=== PATIENT | male | born 1995 | race Caucasian/White ===

== ENCOUNTER 2020-04-01 00:05 | Emergency (ER) | payer BC, SELFPAY ==
[2020-04-01] MEDS ORDERED: LIDOCAINE 1% W/EPI 1:100,000 MDV 20 ML VIAL ONE (01:14)
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
[2020-04-01 03:40] VITALS: TEMP 98.9
[2020-04-01 03:41] VITALS: BP 123/89; O2SAT 98
[2020-04-01] MEDS ORDERED: IBUPROFEN 400 MG TAB ONE (03:42)
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
== END 2020-04-01 03:35 | disposition home or self-care (01) ==
LOC: ER 00:05
PROC: 0JQ10ZZ Repair Face Subcutaneous Tissue and Fascia, Open Approach (ICD-10-PCS; principal; 2020-04-01)
DX: S06.0X0A Concussion without loss of consciousness, initial encounter (principal); S01.81XA Laceration without foreign body of other part of head, initial encounter; Y04.2XXA Assault by strike against or bumped into by another person, initial encounter; Y93.89 Activity, other specified; Y92.89 Other specified places as the place of occurrence of the external cause
CPT/HCPCS: 70450; 70486; 72125; 76377; 99284

== ENCOUNTER 2020-06-22 17:54 | Observation (INO) | payer BC ==
[2020-06-22] MEDS ORDERED: Ringers Lactate 1,000 ML IV ONE ×2 (18:45→21:40)
[2020-06-22] MEDS ORDERED: CEFAZOLIN/SWI 1gm 1 GM/10 ML SYR ONE ×2 (18:48→18:59)
[2020-06-22 19:17] LABS: Absolute Lymphocytes (CBC) 0.6 K/uL (0.7-4.9); Basophils % 0.2 % (0-1.3); Lymphocytes % 6.1 % (15.3-44.8); MPV 8.5 fL (7.6-11.3); RBC Red Blood Cell Count 5.18 M/uL (4.33-5.43)
[2020-06-22 19:27] LABS: Protime INR 1.13
[2020-06-22 19:41] LABS: ALT/SGPT 34 U/L (12-78); AST/SGOT 21 U/L (15-37); Albumin 3.8 g/dL (3.4-5.0); Alkaline Phosphatase 60 U/L (45-117); BUN Blood Urea Nitrogen 6 mg/dL (7-18); Bicarbonate 22 mmol/L (21-32); Bilirubin Total 0.5 mg/dL (0.2-1.0); Glucose Level 99 mg/dL (74-106); Potassium 3.7 mmol/L (3.5-5.1); Protein, Total 7.2 g/dL (6.4-8.2); Sodium Level 139 mmol/L (136-145)
[2020-06-22] MEDS ORDERED: Oxycodone HCl/Acetaminophen 1 TAB TAB PO PRN (21:21)
[2020-06-22] MEDS ORDERED: MORPHINE 2 MG/ML SYR IV PRN (21:22)
[2020-06-22] MEDS ORDERED: KETOROLAC 30 MG/ML INJ IV ONE (21:39)
[2020-06-22] MEDS ORDERED: MEPERIDINE HCL 25 MG/ML SYR ONE (21:59)
[2020-06-23 03:39] VITALS: O2SAT 95; BMI 25.9
[2020-06-23 05:10] VITALS: BP 140/72; TEMP 99.4
--- NOTE | 2020-06-24 10:39 | EKG ---
Test Date: 2020-06-22 Test Time: 18:55:09 Manager Of Business Operations: ARUN MEASUREMENT RESULTS: Intervals: Rate: 110 VA: 152 QRSD: 100 QT: 318 QTc: 430 Tonasket: P: 68 VA: 152 QRS: 78 T: 35 INTERPRETIVE STATEMENTS: Sinus tachycardia Nonspecific T wave abnormality Abnormal ECG No previous ECG available for comparison Electronically Signed On 06-24-20 10:36:54 CDT by David Lugo
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
[2020-06-27 21:03] LABS: Alpha Fetoprotein-Tumor Marker 1.4 ng/mL (<6.1)
== END 2020-06-23 06:20 | disposition home or self-care (01) ==
LOC: DS 17:54 → 2ND 21:50
PROVIDERS: ADMIT Urology; ATTEND Urology
PROC: 0VTJ0ZZ Resection of Right Epididymis, Open Approach (ICD-10-PCS; 2020-06-22)
PROC: 0VBF0ZZ Excision of Right Spermatic Cord, Open Approach (ICD-10-PCS; 2020-06-22)
PROC: 0VT90ZZ Resection of Right Testis, Open Approach (ICD-10-PCS; principal; 2020-06-22 19:00)
DX: C62.91 Malignant neoplasm of right testis, unspecified whether descended or undescended (principal); Z20.822 Contact with and (suspected) exposure to COVID-19; R94.31 Abnormal electrocardiogram [ECG] [EKG]
CPT/HCPCS: 93005; 85025; 36415; 83615; 85610; 88309; 80053; 82105; 84702; 54530; U0003; J2270; J2175; J0690 ×2; J7120 ×2; G0379; G0378

== ENCOUNTER 2022-09-13 17:55 | Observation (INO) | payer BC, SELFPAY ==
--- OUTSIDE RECORDS SUMMARY | 2022-09-13 18:14 | XMS REPORT | Continuity of Care Document ---
:1995 Author Organization [facility] t Address [address] [place] [address]. [address] [place] [address] Care Team Providers Name Role Phone [facility] Primary Care Physician Unavailable SYSTEM, PROVIDER NOT IN Attending Clinician Unavailable Nuha Norris MD Attending Clinician NUHA NORRIS Attending Clinician Unavailable Rocío Kidd APRN Attending Clinician ROCÍO KIDD Attending Clinician Unavailable RAUL YOON Attending Clinician Unavailable TAVIA SHERMAN Attending Clinician Unavailable Therapy, [facility] Covid Infusion Attending Clinician Unavailable Anthony Loomis MD Attending Clinician ANTHONY LOOMIS Attending Clinician Unavailable Doctor Unassigned, [place] Attending Clinician Unavailable Roma Middleton Attending Clinician Provider, [facility] Attending Clinician Unavailable ROMA RANKIN Attending Clinician Unavailable BRODY ZAMORA Attending Clinician Unavailable Monica Attending Clinician Unavailable PRANAV CHANCE Attending Clinician Unavailable Shield Admitting Clinician Unavailable Payers Payer Name Policy Type Policy Number Effective Date Expiration Date Boo LONGORIA/ MONROE [id number] Problems Condition Condition Condition Status Onset Resolution Last Treating Co mments Source Name Details Category Date Date Treatment Clinician Date 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 5-24 ity of 00:00: [place] 00 MD [facility] Allergies, Adverse Reactions, Alerts Allergy Allergy Status Severity Reaction(s) Onset Inactive Treating Comm ents Source Name Type Date Date Clinician NO KNOWN Drug Active Univers ALLERGIE Class ity of S [facility] Family History Family Member Diagnosis Comments Start Date Stop Date Source Maternal grandfather Prostate cancer [facility] MD Combs [facility] Social History Social Habit Start Date Stop Date Quantity Comments Source Exposure to Not sure University SARS-CoV-2 [facility] (event) [place] Alcohol intake 2020-10-13 2020-10-13 Ex-drinker University of 00:00:00 00:00:00 (finding) [place] MD [facility] Tobacco use and 2020-07-10 2020-07-10 Smokeless tobacco Un iversity of exposure 00:00:00 00:00:00 non-user [place] MD Bridger smith [facility] Alcohol Comment 2020-07-10 2020-07-10 Rare Universit y of 00:00:00 00:00:00 [place] MD Bridger smtih [facility] Sex Assigned At [birth year] Universit y of 00:00:00 00:00:00 [place] MD [facility] Smoking Status Start Date Stop Date Source Unknown if ever smoked [facility] Never Smoker [facility] Medications Ordered Filled Start Stop Current Ordering Indication Dosage Frequency Signature Comments Components Source Medication Medication Date Date Medication? Clinician (SIG) Name Name casirivimab 2020-02- No [id number] 1200mg 1,200 mg, Univers -imdevimab 0-11-28 Subcutaneo it y of (REGEN-COV 22:00: 20:50 [place], ONCE, [place] (EUA[place] 00 :00 1 dose, On Medical injection e Branch 1,200 mg 11/28/20 at 1700, Routine No known 2020-02 No Univers medications 0-10 ity of 16:13: [address] No known 2020-02 No Univers medications 0-10 ity of 16:: [address] No known 2020-02 No Univers medications 0-10 ity of 16:13: [address] No known 2020-02 No Univers medications 0-10 ity of 16:13: [place] 12 [facility] Vital Signs Vital Name Observation Time Observation Value Comments Source Systolic blood 2020-11-28 21:35:00 133 mm[Hg] Univer sity of pressure [place] [facility] Diastolic blood 2020-11-28 21:35:00 72 mm[Hg] Unive rsity of pressure [facility] Heart rate 2020-11-28 21:35:00 78 /min Universi ty of [place] [facility] [place] Body temperature 2020-11-28 21:35:00 37.06 Melanie Univ ersity of [place] [facility] Respiratory rate 2020-11-28 21:35:00 18 /min Univ ersity of [place] [facility] Oxygen saturation in 2020-11-28 21:35:00 96 /min University of Arterial blood by [place] [employer] kirstin Pulse oximetry Branch Body height 2020-11-28 20:48:00 188 cm Universi ty of [place] [facility] [place] Body weight 2020-11-28 20:48:00 90.719 kg Universi ty [facility] [place] [facility] [place] BMI 2020-11-28 20:48:00 25.68 kg/m2 Universi ty of [place] [facility] [place] Oxygen saturation in 2020-11-26 20:49:00 98 /min University of Arterial blood by [place] [employer]irstin Pulse oximetry Branch Systolic blood 2020-11-26 20:49:00 126 mm[Hg] Univer sity of pressure [place] [facility] Diastolic blood 2020-11-26 20:49:00 86 mm[Hg] Unive rsity of [facility] Medical [place] Heart rate 2020-11-26 20:49:00 88 /min Universi ty [facility] [place] [facility] Respiratory rate 2020-11-26 20:49:00 18 /min Univ ersity of [place] [facility] [place] Body height 2020-11-26 20:49:00 188 cm Universi ty [facility] [place] [facility] Body weight 2020-11-26 20:49:00 88.814 kg Universi ty [facility] [place] [facility] BMI 2020-11-26 20:49:00 25.14 kg/m2 [facility]i [facility] [place] [facility] Height 2020-08-07 00:00:00 72.5 [in_i] [facility] BMI (Body Mass 2020-08-07 00:00:00 27.3 kg/m2 [facility] BP Systolic 2020-08-07 00:00:00 125 mm[Hg] [facility] Body Weight 2020-08-07 00:00:00 3264 [oz_av] [facility] BP Diastolic 2020-08-07 00:00:00 82 mm[Hg] [facility] HEIGHT 2020-07-10 12:20:00 182 cm WEIGHT 2020-07-10 12:20:00 91.4 kg Systolic blood 2022-01-04 16:48:53 153 mm[Hg] Univer sity of pressure [facility] Diastolic blood 2022-01-04 16:48:53 88 mm[Hg] Unive rsity of pressure [place] MD [facility] Heart rate 2022-01-04 16:48:53 75 /min [facility] Body temperature 2022-01-04 16:48:53 36.61 Melanie [facility] Respiratory rate 2022-01-04 16:48:53 20 /min [facility] Oxygen saturation in 2022-01-04 16:48:53 98 /min [facility] Arterial blood by Shahida branhamon Pulse oxim[facility] Body height 2022-01-04 16:46:00 182 cm Universi ty [facility] Body weight 2022-01-04 16:46:00 97 kg Universi [facility] BMI 2022-01-04 16:46:00 29.28 kg/m2 [facility] Procedures Procedure Date / Time Performing Clinician Source Performed CT CHEST ABDOMEN PELVIS W 2022-07-04 19:35:00 [facility] ALPHA FETOPROTEIN TUMOR 2022-07-04 17:50:00 Rocío Kidd [facility] MARKER [facility] BHCG, TUMOR MARKER 2022-07-04 17:50:00 Rocío Kidd [facility] TESTOSTERONE LEVEL 2022-07-04 17:50:00 Rocío Kidd [facility] [place] COMPLETE BLOOD COUNT W/ 2022-07-04 17:50:00 Rocío Kidd [facility] DIFFERENTIAL [facility] COMPREHENSIVE METABOLIC 2022-07-04 17:50:00 Rocío Kidd [facility] PANEL [facility] Results CBC 2022-07-04 17:50:00 Rocío Kidd [facility] [place] [facility] MANUAL DIFFERENTIAL 2022-07-04 17:50:00 Rocío Kidd [facility] GLUCOSE LEVEL 2022-07-04 17:50:00 Rocío Kidd [facility] [place] [facility] BLOOD UREA NITROGEN 2022-07-04 17:50:00 Rocío Kidd [facility] ELECTROLYTE PANEL 2022-07-04 17:50:00 Rocío Kidd [facility] SERUM CREATININE 2022-07-04 17:50:00 Rocío Kidd [facility] .GLOMERULAR FILTRATION 2022-07-04 17:50:00 [facility] RATE [facility] CALCIUM LEVEL TOTAL 2022-07-04 17:50:00 Rocío Kidd [facility] ALBUMIN LEVEL 2022-07-04 17:50:00 Rocío Kidd [facility] [place] [facility] ALKALINE PHOSPHATASE 2022-07-04 17:50:00 Rocío Kidd [facility] ALANINE AMINOTRANSFERASE 2022-07-04 17:50:00 Rocío Kidd [facility] ASPARTATE AMINOTRANSFERASE 2022-07-04 17:50:00 [facility] TOTAL PROTEIN 2022-07-04 17:50:00 Rocío Kidd [facility] [place] [facility] FRACTIONATED BILIRUBIN 2022-07-04 17:50:00 Rocío Kidd [facility] POC CREATININE 2022-07-04 17:48:00 Rocío Kidd [facility] [place] [facility] CT CHEST ABDOMEN PELVIS W 2022-01-03 19:16:00 Roc[facility]idd [facility] CONTR[facility] MAGNESIUM LEVEL 2022-01-03 16:18:00 Rocío Kidd [facility] [place] [facility] ALPHA FETOPROTEIN TUMOR 2022-01-03 16:18:00 Rocío Kidd [facility] MARKER [facility] BHCG, TUMOR MARKER 2022-01-03 16:18:00 Rocío Kidd [facility] [place] TESTOSTERONE LEVEL 2022-01-03 16:18:00 Rocío Kidd [facility] [place] COMPLETE BLOOD COUNT W/ 2022-01-03 16:18:00 Rocío Kidd [facility] DIFFERENTIAL [facility] COMPREHENSIVE METABOLIC 2022-01-03 16:18:00 Rocío Kidd [facility] PANEL [facility] GLUCOSE LEVEL 2022-01-03 16:18:00 Rocío Kidd [facility] [place] [facility] BLOOD UREA NITROGEN 2022-01-03 16:18:00 Rocío Kidd [facility] ELECTROLYTE PANEL 2022-01-03 16:18:00 Rocío Kidd [facility] SERUM CREATININE 2022-01-03 16:18:00 Rocío Kidd [facility] .GLOMERULAR FILTRATION 2022-01-03 16:18:00 Rocío Kidd [facility] RATE [facility] CALCIUM LEVEL TOTAL 2022-01-03 16:18:00 Rocío Kidd [facility] ALBUMIN LEVEL 2022-01-03 16:18:00 Rocío Kidd [facility] [place] [facility] ALKALINE PHOSPHATASE 2022-01-03 16:18:00 Rocío Kidd [facility] ALANINE AMINOTRANSFERASE 2022-01-03 16:18:00 Rocío Kidd [facility] ASPARTATE AMINOTRANSFERASE 2022-01-03 16:18:00 Rocío [facility]idd [facility] TOTAL PROTEIN 2022-01-03 16:18:00 Rocío Kidd [facility] [place] [facility] FRACTIONATED BILIRUBIN 2022-01-03 16:18:00 Rocío [facility]idd [facility] Results CBC 2022-01-03 16:18:00 Rocío Kidd [facility] [place] [facility] MANUAL DIFFERENTIAL 2022-01-03 16:18:00 Rocío Kidd [facility] [id number] CONSENT 2020-11-28 05:01:00 Doctor Unassigned, [facility] [place] [facility] Plan of Care Planned Activity Planned Date Details Comments Source Future Scheduled Test 2022-07-10 COVID-19 Vaccination [facility] 11:44:51 (#1) [code = MD [facility] COVID-19 Vaccination Center (#1)] Instructions [facility] Encounters Start End Encounter Admission Attending Care Care Encounter Source Date/Time Date/Time Type Type Clinicians Facility Department ID 2020-07-12 Outpatient SYSTEMALON MDA [id number] 15:53:34 PROVIDER Mao jimenez 2022-07-05 2022-07-05 Telemedicbernarda Norris, 1.2.840.1 [id number] [facility] 16:00:00 16:30:00 ne Nuha Voss50.1.1 ity of 3.412.2.7 [place] .3.855204 MD Amy [facility] [place] 2022-07-05 2022-07-05 Outpatient FARRUKH NORRIS MDA MDA [id number] 16:06:27 16:06:27 NUHA jimenez 2022-07-04 2022-07-04 [facility], 1.2.840.1 [id number] [facility] 11:03:40 23:59:00 Encounter Rocío Negrete.1.1 it y of 3.412.2.7 [place] .3.760611 MD Amy [facility] [place] 2022-07-04 2022-07-04 Outpatient FARRUKH RODRIGUEZRocco [facility] [id number] 11:03:40 23:59:00 ROCÍO Cavanuagh zarina jimenez 2022-07-04 2022-07-04 [facility], 1.2.840.1 [id number] [facility] 12:00:00 14:25:00 Procedure Rocío 46320.1.1 it y of 3.412.2.7 [place] .3.881580 MD Mishra8 [facility] 2022-07-04 2022-07-04 Outpatient MICHAELRocco [facility] [id number] 11:02:16 11:02:16 ROCÍO Mao zarina jimenez 2022-07-04 2022-07-04 Travel 1.2.840.1 1.2.859.970 [id number] [facility] 00:00:00 00:00:00 86079.1.1 350.1.13.41 ity of 3.412.2.7 [place].3.698 [place] .3.120416 084.8 MD Reyes [facility] 2022-01-04 2022-01-04 Follow-Up Jr 1.2.840.1 [id number] [facility] 11:00:00 11:39:47 Nuha 20889.1.1 ity of 3.412.2.7 [place] .3.200408 MD Mishra8 [facility] 2022-01-04 2022-01-04 Outpatient FARRUKH NORRIS [facility] [id number] 10:43:19 11:39:47 NUHA jimenez 2022-01-04 2022-01-04 Travel 1.2.840.1 1.2.214.778 [id number] [facility] 00:00:00 00:00:00 43079.1.1 350.1.13.41 ity of 3.412.2.7 [place].3.698 [place] .3.539381 084.8 MD Mishra8 [facility] 2022-01-03 2022-01-03 [facility], 1.2.840.1 [id number] [facility] 10:01:48 23:59:00 Encounter Rocío 28451.1.1 it y of 3.412.2.7 [place] .3.746163 .8 [facility] 2022-01-03 2022-01-03 Outpatient FARRUKH KIDD ALON MDA [id number] MD 10:01:48 23:59:00 ROCÍO jimenez 2022-01-03 2022-01-03 Ancillary Bernabe, 1.2.840.1 [id number] [facility] 10:50:00 13:15:00 Procedure Rocío 53052.1.1 it y of 3.412.2.7 [place] .3.316976 MD Mishra8 [facility] 2022-01-03 2022-01-03 Outpatient FARRUKH KIDD ALON MDA [id number] MD 10:30:44 10:30:44 ROCÍO jimenez 2022-01-03 2022-01-03 Travel 1.2.840.1 1.2.440.145 [id number] [facility] 00:00:00 00:00:00 10315.1.1 350.1.13.41 ity of 3.412.2.7 2.[place]7.3.698 [place] .3.429676 084.8 MD Mishra8 [facility] 2021-07-12 2021-07-12 Outpatient FARRUKH NORRIS MDA MDA [id number] 10:52:49 23:59:00 NUHA jimenez 2021-07-12 2021-07-12 Outpatient FARRUKH NORRIS MDA MDA [id number] 11:19:52 11:19:52 NUHA Cavanaugh o tony 2021-04-13 2021-04-13 Outpatient FARRUKH YOON MDA MDA [id number] 10:10:49 11:10:17 RAUL jimenez 2021-04-12 2021-04-12 Outpatient FARRUKH SHERMANALON MDA [id number] 13:15:00 23:59:00 TAVIA jimenez 2021-04-12 2021-04-12 Outpatient FARRUKH WHITALON [facility] [id number] 13:01:33 13:14:00 TAVIA jimenez 2021-01-08 2021-01-08 Outpatient FARRUKH SHERMAN MDA [facility] [id number] 14:06:26 23:59:00 TAVIA srinivasan n 2021-01-08 2021-01-08 Outpatient FARRUKH YOON MDA MDA [id number] 14:21:27 15:19:26 RAUL jimenez 2020-11-28 2020-11-28 Nurse Therapy, Adc Covid Infusion [facility] 1.2.840.114 [id number] Univers 15:25:52 16:25:52 Visit Anthony Loomis 350.1.13.10 [place] [id number] [address] 2020-11-28 2020-11-28 Outpatient Asmita LOOMIS [facility] [id number] Univers 15:30:00 15:30:00 ANTHONY lucero [facility] 2020-11-28 2020-11-28 Orders Doctor KATHRINE 1.2.840.114 [id number] Univers 00:00:00 00:00:00 Only Unassigned, FREDERIC 350.1.13.10 ity of [place] [facility] 4.2.7.2.686 [place] as [id number] [address] 2020-11-27 2020-11-27 [facility] 1.2.002.735 [id number] Univers 00:00:00 00:00:00 Roma [facility] 350.1.13.10 ity of [place] 4.2.7.2.686 [place] Marvin?Blea [id number] [address] Medical Office [facility] 2020-11-26 2020-11-26 Urgent Provider, Alcides Patel [facility] 1.2.840.114 [id number] Univers 15:42:22 16:02:22 [facility] 350.1.13.10 ity of [place] 4.2.7.2.686 [place] Marvin?Blea [id number] [address] Medical Office Building 2020-11-26 2020-11-26 Outpatient R MASSIEL, [facility] [id number] Univers 15:40:00 15:40:00 ROMA goldsmith [facility] 2020-10-09 2020-10-09 Outpatient EL SERA, MDA MDA [id number] 09:27:52 23:59:00 BRODY jimenez 2020-10-09 2020-10-09 Outpatient EL TU, MDA MDA [id number] 10:47:38 11:13:02 RAUL Bridger so tony 2020-10-08 2020-10-08 Outpatient EL WHIT, MDA MDA [id number] MD 06:37:25 23:59:00 TAVIA jimenez 2020-08-07 2020-08-07 [facility] [place] [facility] [address] [place] 00:00:00 00:00:00 Discovery Monica 0621 da ELECTROCARDIOGRAM TECHNICIAN: [address] [facility] - [address], [place] [address] , Ph. 2020-07-10 2020-07-10 Outpatient EL PISTERS, MDA MDA [id number] MD 14:24:54 23:59:00 PRANAV jimenez 2020-07-10 2020-07-10 Outpatient EL TU, MDA MDA [id number] 12:18:46 14:19:12 NICA-REBEKA Bridger so n 2020-07-10 2020-07-10 Outpatient EL TU, MDA MDA [id number] MD 14:16:27 14:16:27 NICA-REBEKA Bridger so n 2020-07-10 2020-07-10 Outpatient EL TU, MDA MDA [id number] MD 14:14:35 14:14:35 NICA-REBEKA Bridger so n 2020-07-10 2020-07-10 Outpatient EL MDA MDA [id number] 12:11:39 12:15:15 Mao o tony 2020-07-08 2020-07-08 Outpatient EL TU, MDA MDA [id number] 08:58:12 09:05:52 RAUL Goodwiner so n Results Test Description Test Time Test Comments Results Result Comments Source Testosterone Level 2022-07-04 20:52:36 Test Item Value Reference Range Interpretation Comme nts Testoster Tot (test code = 2986-8) 249-836 H Reference Ranges: Male: Age 20 - 49 249 - 836 Age >=50 193 - 740 Female: Age 20 - 49 8 - 48 Age >=50 3 - 41 Lab Interpretation (test code = Abnormal 91097-1) [facility] System[facility]ractionated [id number] 20:12:56 Test Item Value Reference Range Interpretation Comments Bili Total (test 0.4 mg/dL <=1.2 Indocyanine Green (ICG) code = 1974-) may cause fal sely elevated biliru bin results. Total and direct bilirubin must not be measured from s amples containing indo cyanine green. False el evation of total bilirubin can be seen in patient s with IgG concentrations above 28 g/L. Bili Direct (test <=0.3 Indocyanin e Green (ICG) code = 1967-08) may cause fal sely elevated biliru bin results. Total and direct bilirubin must not be measured from s amples containing indo cyanine green. Bili Indirect (test See Note 0.0-0.9 Unable t o calculate code = 1970-02) Indirect Bili szymanski result due to some par ameters are outside rep ortable range [facility] System[facility]omerular Filtration Rate 2022-07-04 20:12:54 Test Item Value Reference Range Interpretation Comments eGFR (test code = 116 See_Comment The eGFRcr [place] 469[address]-6) the 2020 CKD-EP I creatinine equation using creatinine, patient's age, and sex for adults 18 years of age and older. Other fa ctors, especially musc le mass, may affect accuracy and need to be considered.A ccording to the Kidney Dise ase: Improving Global Outcomes (KDIGO) CKD Work Group 2012 Clinical Practice Guidel ine, chronic kidney disease (CKD) is defined as the abnormalities of kidney struc ture or function, prese nt for more than 3 months, with implications fo r health. CKD should be class ified by cause, GFR amanda gory, and albuminuria cat egory. KDIGO guidelines prov charmaine the following GFR c ategoriesStage Description GFR mL/min/1.73 m2G1* Normal or high >= 90G2* Mildly decrease d 60-89G3a Mildly to moder ately decreased 45-59 G3b Moderately to severely dec reased 30-44G4 Severely decrea sed 15-29G5 Kidney failure <15*In the absence of evid ence of kidney damage, neither G1 nor G2 fulfill criteri a for CKD. [Automated mess age] The system which ge nerated this result transmit javier reference range: >=60 mL/ min/1.73 sq. m. The referenc e range was not used to int erpret this result as brian l/abnormal. [facility] SystemTotal [id number] 20:12:53 Test Item Value Reference Range Interpretation Comments Total Protein (test code = 2885-2) 7.3 g/dL 6.4-8.3 [facility] SystemAlkaline [id number] 20:12:52 Test Item Value Reference Range Interpretation Comments Alk Phos (test code = 6768-6) 79 U/L 40-129 [facility] SystemALT2023-05-18 20:12:50 Test Item Value Reference Range Interpretation Comments ALT (test code = 1742-6) 32 U/L <=41 [facility] SystemCalcium [id number] 20:12:49 Test Item Value Reference Range Interpretation Comments Calcium Lvl (test code = 58814-3) 9.9 mg/dL 8.4-10.2 [facility].Serum [id number] 20:12:48 Test Item Value Reference Range Interpretation Comments Creatinine (test code = 2160-0) 0.94 mg/dL 0.67-1.17 [facility] SystemAlbumin [id number] 20:12:47 Test Item Value Reference Range Interpretation Comments Albumin Lvl (test code 4.3 See_Comment [Aut omated message] The = 1751-7) system which ge nerated this result tra nsmitted reference range : 3.5 - 5.2 gm/dL. The refe rence range was not used to interpret this result as normal/abnormal . [facility] SystemBUN2023-05-18 20:12:46 Test Item Value Reference Range Interpretation Comments BUN (test code = 3094-0) 15 mg/dL 6-23 [facility] SystemAspartate Aminotransferase 2022-07-04 20:12:45 Test Item Value Reference Range Interpretation Comments AST (test code = 1920-8) 41 U/L <=40 H Lab Interpretation (test code = Abnormal 16725-8) [facility] SystemElectrolyte [id number] 20:12:44 Test Item Value Reference Range Interpretation Comments Sodium Lvl (test code = 137 See_Comment [Au tomated message] The 2950-03) system which ge nerated this result tra nsmitted reference range : 136 - 145 mEq/L. The reference range was not u sed to interpret this result as normal/abnormal . Potassium Lvl (test 4.6 See_Comment [Automa javier message] The code = 2823-3) system which generated this result tra nsmitted reference range : 3.5 - 5.1 mEq/L. The reference range was not u sed to interpret this result as normal/abnormal . Chloride (test code = 101 See_Comment [Auto mated message] The ) system which ge nerated this result tra nsmitted reference range : 98 - 107 mEq/L. The refe rence range was not u sed to interpret this result as normal/abnormal . CO2 (test code = 24 See_Comment [Automated message] The 2027-10) system which ge nerated this result tra nsmitted reference range : 22 - 29 mEq/L. The refe rence range was not u sed to interpret this result as normal/abnormal . Anion Gap (test code = 12 See_Comment [Aut omated message] The ) system which ge nerated this result tra nsmitted reference range : 4 - 14 mEq/L. The refe rence range was not u sed to interpret this result as normal/abnormal . [facility] SystemGlucose [id number] 20:12:43 Test Item Value Reference Range Interpretation Comments Glucose Level (test 88 mg/dL 70-99 Effectiv e 09/13/15, the code = 2345-7) glucose refer ence intervals have been updated based o n [place] [employer] es [employer] genia delines (Standards of M edical Care in Diabete s 2016. Diabetes Care 2 016; 39: S13-S22).Fastin g blood glucose:Normal: 70-99 mg/dLImpaired f asting glucose (increa sed risk for diabetes or pre-diabetes): 100-125 mg/dLDiabetes m ellitus: >/=126 mg/dL Ra ndom blood glucose:N ormal: 70-199 mg/dLNot e: Random glucose >100 mg /dL is associated with increased risk for diabetes [facility] SystemAFP2023-05-18 20:03:58 AFP<2.7<=8.3 ng/mLUT [facility]ARE CENTERUnMemorial Hermann Southeast HospitalBHCG, Tumor Ghfvlr0930-28-29 19:58:56Beta HCG, Tumor Marker<0.6<=0.9 mIU/mLUT [facility] [facility]Un[facility] HospitalDifferential2023-[facility]-18 18:40:55 Test Item Value Reference Range Interpretation Comments Neutrophil % (test code 81.8 % 42.0-66.0 H As p art of = 770-8) Differential performed at [facility] Inner Tube T[employer] Machine Operator [facility], [address], [place] [address] Lymphocyte % (test code 9.1 % 24.0-44.0 L = 736-9) Monocyte % (test code = 7.2 % 2.0-7.0 H 5905-5) Eosinophil % (test code 1.0 % 1.0-4.0 = 713-8) Basophil % (test code = 0.3 % 0.0-1.0 706-2) IGRE % (test code = 0.6 % 0.0-0.4 H IGRE % c ount includes 18463-6) Metamyelocytes, Myelocytes, and Promyelocytes. As part of Differe ntial performed at [facility] Lab [facility], [address], [place] [address] Neutrophil Abs (test 7.31 K/uL 1.70-7.30 H code = 751-8) Lymphocyte Abs (test 0.81 K/uL 1.00-4.80 L code = 731-0) Monocyte Abs (test code 0.64 K/uL 0.08-0.70 = 742-7) Eosinophil Abs (test 0.09 K/uL 0.04-0.40 code = 711-2) Basophil Abs (test code 0.03 K/uL 0.00-0.10 = 704-7) IG Abs (test code = 0.05 K/uL 0.00-0.04 H 41503-7) Lab Interpretation Abnormal (test code = 84131-9) [facility] [place].[id number] 18:40:41 Test Item Value Reference Range Interpretation Comments WBC (test code = 8.9 K/uL 4.0-11.0 6690-2) RBC (test code = 789-8) 5.87 See_Comment [Au tomated message] The system Knoda generated this result transmitted ref erence range: 4.50 - 6 .00 M/uL. The refer ence range was not u sed to interpret this result as normal/abnor mal. Hgb (test code = 718-7) 16.9 See_Comment As p art of CBC or as an individual orderable testi ng performed at [facility] [employer] Operator [facility], [address], [place] [address] [Automate d message] The sy stem which generated this result transmit javier reference range : 14.0 - 18.0 gm/dL. T he reference range was not used to int erpret this result as normal/abnormal . Hct (test code = 52.8 % 40.0-54.0 As part of CBC or as 4544-3) an individual orderable testi ng performed at [facility] [employer] Operator [facility], [address], [place] [address] MCV (test code = 787-2) 90 fL 82-98 MCH (test code = 785-6) 28.8 pg 27.0-31.0 MCHC (test code = 32.0 See_Comment [Automate d message] 786-4) The system Knoda generated this result transmitted ref erence range: 31.0 - 3 6.0 gm/dL. The refe rence range was not u sed to interpret this result as normal/abnor mal. RDW-SD (test code = 49.7 fL 35.1-46.3 H 85506-1) RDW-CV (test code = 15.1 % 12.0-15.5 788-0) Platelet count (test 305 K/uL 140-440 As part of CBC or as code = 777-3) an individual orderable testi ng performed at [facility] [employer] Operator [facility], [address], [place] [address] MPV (test code = 10.0 fL 4.0-10.4 76977-7) INRBC (test code = 0.0 % <=0.0 The INRBC (instrument 13546-4) NRBC) value ref lects the enumeration of nucleated red b lood cells contained in a 200uL sampleof whole blood analyzed by the instrument. Thi s value maydiffer from the NRBC value repo rted in a manual differential,wh ich is based on a 100 cell differential. A s part of CBC testing performed at [facility] Inner Tube T[employer] Machine Operator [id number], [place], [place] [address] Lab Interpretation Abnormal (test code = 96827-0) [facility] [id number] 17:50:28 Test Item Value Reference Range Interpretation Comments POC Crea (test 1.0 mg/dL 0.6-1.3 Medications, code = 96942-7) especially h ydroxyurea or supplements, such as ascorbate, c an interfere with test results causing a falsely and significantly h igher result than exp ected. If a problem is suspected with a patient's resul t, a sample should b e sent to the laborato for confirmatory te sting. Method descript ion: The i-STAT is a n analyzer used f or in vitro quantific ation of various anal ytes in whole blood. Th e device uses a s garima disposable cart ridge which contains microfabricated sensors, a cassi bration solution, fluid ics system, and a w aste chamber. Each t est cartridge conta ins chemically sens itive biosensors on a silicon chip th at are configured to p erform specific tests. The microfabricated sensors measure analyte concent ration by an electroch emical assay. POC EGFR (test 108 See_Comment The eGFRcr is code = 49794) calculated wit h the 2020 CKD-EPI creatinine equa tion using creatinin e, patient's age, and sex for adults 18 y ears of age and older. Other factors, especi ally muscle mass, ma y affect accuracy and need to be considered.Acco rding to the Kidney D isease: Improving Globa l Outcomes (KDIGO ) CKD Work Group 2012 Clinical Practi ce Guideline, train examiner nuno kidney disease (CKD) is defined as t he abnormalities o f kidney structur e or function, prese nt for more than 3 mon ths, with implicatio ns for health. CKD nathan uld be classified by c ause, GFR category, a nd albuminuria cat egory. KDIGO guideline s provide the fol lowing GFR categoriesS tage Description GFR mL/min/1.73 m2G 1* Normal or high >= 90G2* Mildly de creased 60-89G3a Mildly to moderately decr eased 45-59G3b Modera tely to severely decrea sed 30-44G4 Severel y decreased 15-29 G5 Kidney failure <15*In the absence of evidence of kid olivia damage, neither G1 nor G2 fulfill crit eria for CKD. [Autom ated message] The sy stem which generated this result transmit javier reference range : >=60 mL/min/1.73 sq. m. The reference range was not used to int erpret this result as normal/abnormal . POC Clean Dev Yes (test code = 6672) Performing Lab [facility] (test code = [facility] [address]) Clinical Lab, [address], [place], [place] [address]; Narrow Gauge Engineer: Micehlle Chaves MD; Waived Point of Care Testing - Maryanne johnson MD [facility] [place] [id number] 16:55:21 Test Item Value Reference Range Interpretation Comments Magnesium (test code = 2.1 mg/dL 1.6-2.6 [place] [address]-7) [facility], [address], [place] [address] [facility]
--- OUTSIDE RECORDS SUMMARY | 2022-09-13 18:14 | XMS REPORT | Clinical Summary ---
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 Encounters Date Type Specialty Care Team Description 07/05/2022 Telemedicine Genitourinary Oncology Castillo Norris Mali gnant neoplasm of unspecified testis, unspeci fied whether descend ed or undescended 07/04/2022 Ancillary Procedure Radiology Lola Kidd, Maligna nt neoplasm CHLORINE CELLS OPERATOR of unspecified testis, unspeci fied whether descend ed or undescended 07/04/2022 Hospital Encounter Lab Lola Kidd Malignan t neoplasm CHLORINE CELLS OPERATOR of unspecified testis, unspeci fied whether descend ed or undescended 07/04/2022 Travel 01/04/2022 Follow-Up Genitourinary Oncology Castillo Norris Mali gnant neoplasm of unspecified testis, unspeci fied whether descend ed or undescended (Primary Dx) 01/04/2022 Travel 01/03/2022 Ancillary Procedure Radiology Lola Kidd, Maligna nt neoplasm CHLORINE CELLS OPERATOR of unspecified testis, unspeci fied whether descend ed or undescended 01/03/2022 Hospital Encounter Lab Loal Kidd Malignan t neoplasm CHLORINE CELLS OPERATOR of unspecified testis, unspeci fied whether descend ed or undescended 01/03/2022 Travel after 09/13/2021 Medical History Medical History Date Comments Unspecified lump in unspecified breast 2012 P uberty 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 06/22/20 Psoriasis 2008 Family History Medical History Relation Name Comments Prostate cancer Maternal Grandfather Lemuel Mata Relation Name Status Comments Maternal Grandfather Lemuel Mata Social History Tobacco Use Types Packs/Day Years Used Date Smoking Tobacco: Never Smokeless Tobacco: Never Alcohol Use Standard Drinks/Week Comments Not Currently 0 (1 standard drink = 0.6 oz pure alcoho l) Rare Sex Assigned at Date Recorded Not on file Job Start Date Occupation Industry Not on file Not on file Not on file Obstetrics History Last Filed Vital Signs Vital Sign Reading Time Taken Comments Blood Pressure 153/88 01/04/2022 10:48 AM [employer] Pulse 75 01/04/2022 10:48 AM [employer] Temperature 36.6 C (97.9 F) 01/04/2022 10:48 AM [employer] Respiratory Rate 20 01/04/2022 10:48 AM [employer] Oxygen Saturation 98% 01/04/2022 10:48 AM [employer] Inhaled Oxygen Concentration - - Weight 97 kg (213 lb 13.5 oz) 01/04/2022 10:46 AM [employer] Height 182 cm (5' 11.65") 01/04/2022 10:46 AM DIRECTOR [employer] Body Mass Index 29.28 01/04/2022 10:46 AM DIRECTOR [employer]ICS Plan of Treatment Date Type Specialty Care Team Description 10/10/2022 Ancillary Procedure Radiology Castillo Norris MD [address] [place], [place] [address] (Pamela daliey) 10/11/2022 Telemedicine Genitourinary Oncology Stephanie Norris MD [address] [place], [place] [address] (Pamela dailey) Health Maintenance Due Date Last Done Comments COVID-19 Vaccination (#1) 01/19/1998 Procedures Procedure Name Priority Date/Time Associated Comments Diagnosis CT CHEST ABDOMEN PELVIS Routine 07/04/2022 2:35 Malignant neop lasm Results for this W CONTRAST PM CDT of unspecified procedure are in testis, unspecified the resu lts whether descended section. or undescended FRACTIONATED BILIRUBIN Routine 07/04/2022 12:50 Malignant neop lasm Results for this PM CDT of unspecified procedure are in testis, unspecified the resu lts whether descended section. or undescended TOTAL PROTEIN Routine 07/04/2022 12:50 Malignant neoplasm Resu lts for this PM CDT of unspecified procedure are in testis, unspecified the resu lts whether descended section. or undescended ASPARTATE Routine 07/04/2022 12:50 Malignant neoplasm Resul ts for this AMINOTRANSFERASE PM CDT of unspecified procedure are in testis, unspecified the resu lts whether descended section. or undescended ALANINE AMINOTRANSFERASE Routine 07/04/2022 12:50 Malignant ne oplasm Results for this PM CDT of unspecified procedure are in testis, unspecified the resu lts whether descended section. or undescended ALKALINE PHOSPHATASE Routine 07/04/2022 12:50 Malignant neopla sm Results for this PM CDT of unspecified procedure are in testis, unspecified the resu lts whether descended section. or undescended ALBUMIN LEVEL Routine 07/04/2022 12:50 Malignant neoplasm Resu lts for this PM CDT of unspecified procedure are in testis, unspecified the resu lts whether descended section. or undescended CALCIUM LEVEL TOTAL Routine 07/04/2022 12:50 Malignant neoplas m Results for this PM CDT of unspecified procedure are in testis, unspecified the resu lts whether descended section. or undescended .GLOMERULAR FILTRATION Routine 07/04/2022 12:50 Malignant neop lasm Results for this RATE PM CDT of unspecified procedure are in testis, unspecified the resu lts whether descended section. or undescended SERUM CREATININE Routine 07/04/2022 12:50 Malignant neoplasm R esults for this PM CDT of unspecified procedure are in testis, unspecified the resu lts whether descended section. or undescended ELECTROLYTE PANEL Routine 07/04/2022 12:50 Malignant neoplasm Results for this PM CDT of unspecified procedure are in testis, unspecified the resu lts whether descended section. or undescended BLOOD UREA NITROGEN Routine 07/04/2022 12:50 Malignant neoplas m Results for this PM CDT of unspecified procedure are in testis, unspecified the resu lts whether descended section. or undescended GLUCOSE LEVEL Routine 07/04/2022 12:50 Malignant neoplasm Resu lts for this PM CDT of unspecified procedure are in testis, unspecified the resu lts whether descended section. or undescended MANUAL DIFFERENTIAL Routine 07/04/2022 12:50 Malignant neoplas m Results for this PM CDT of unspecified procedure are in testis, unspecified the resu lts whether descended section. or undescended Results CBC Routine 07/04/2022 12:50 Malignant neoplasm Resul ts for this PM CDT of unspecified procedure are in testis, unspecified the resu lts whether descended section. or undescended COMPREHENSIVE METABOLIC Routine 07/04/2022 12:50 Malignant julia plasm PANEL PM CDT of unspecified testis, unspecified whether descended or undescended COMPLETE BLOOD COUNT W/ Routine 07/04/2022 12:50 Malignant julia plasm DIFFERENTIAL PM CDT of unspecified testis, unspecified whether descended or undescended TESTOSTERONE LEVEL Routine 07/04/2022 12:50 Malignant neoplasm Results for this PM CDT of unspecified procedure are in testis, unspecified the resu lts whether descended section. or undescended BHCG, TUMOR MARKER Routine 07/04/2022 12:50 Malignant neoplasm Results for this PM CDT of unspecified procedure are in testis, unspecified the resu lts whether descended section. or undescended ALPHA FETOPROTEIN TUMOR Routine 07/04/2022 12:50 Malignant julia plasm Results for this MARKER PM CDT of unspecified procedure are in testis, unspecified the resu lts whether descended section. or undescended POC CREATININE Routine 07/04/2022 12:48 Results f or this PM CDT procedure are i n the results section. CT CHEST ABDOMEN PELVIS Routine 01/03/2022 1:16 Malignant neop lasm Results for this W CONTRAST PM [employer] ECONOMICS of unspecified procedure are in testis, unspecified the resu lts whether descended section. or undescended MANUAL DIFFERENTIAL Routine 01/03/2022 10:18 Malignant neoplas m Results for this AM [employer] ECONOMICS of unspecified procedure are in testis, unspecified the resu lts whether descended section. or undescended Results CBC Routine 01/03/2022 10:18 Malignant neoplasm Resul ts for this AM [employer] ECONOMICS of unspecified procedure are in testis, unspecified the resu lts whether descended section. or undescended FRACTIONATED BILIRUBIN Routine 01/03/2022 10:18 Malignant neop lasm Results for this AM [employer] ECONOMICS of unspecified procedure are in testis, unspecified the resu lts whether descended section. or undescended TOTAL PROTEIN Routine 01/03/2022 10:18 Malignant neoplasm Resu lts for this AM [employer]CONOMICS of unspecified procedure are in testis, unspecified the resu lts whether descended section. or undescended ASPARTATE Routine 01/03/2022 10:18 Malignant neoplasm Resul ts for this AMINOTRANSFERASE AM DIRECT[employer] ECONOMICS of unspecified procedure are in testis, unspecified the resu lts whether descended section. or undescended ALANINE AMINOTRANSFERASE Routine 01/03/2022 10:18 Malignant ne oplasm Results for this AM [employer]CON[employer]ICS of unspecified procedure are in testis, unspecified the resu lts whether descended section. or undescended ALKALINE PHOSPHATASE Routine 01/03/2022 10:18 Malignant neopla sm Results for this AM [employer] of unspecified procedure are in testis, unspecified the resu lts whether descended section. or undescended ALBUMIN LEVEL Routine 01/03/2022 10:18 Malignant neoplasm Resu lts for this AM [employer]CONOMICS of unspecified procedure are in testis, unspecified the resu lts whether descended section. or undescended CALCIUM LEVEL TOTAL Routine 01/03/2022 10:18 Malignant neoplas m Results for this AM [employer] of unspecified procedure are in testis, unspecified the resu lts whether descended section. or undescended .GLOMERULAR FILTRATION Routine 01/03/2022 10:18 Malignant neop lasm Results for this RATE AM [employer] ECONOMICS of unspecified procedure are in testis, unspecified the resu lts whether descended section. or undescended SERUM CREATININE Routine 01/03/2022 10:18 Malignant neoplasm R esults for this AM [employer]OMICS of unspecified procedure are in testis, unspecified the resu lts whether descended section. or undescended ELECTROLYTE PANEL Routine 01/03/2022 10:18 Malignant neoplasm Results for this AM [employer] ECONOMICS of unspecified procedure are in testis, unspecified the resu lts whether descended section. or undescended BLOOD UREA NITROGEN Routine 01/03/2022 10:18 Malignant neoplas m Results for this AM [employer] ECONOMICS of unspecified procedure are in testis, unspecified the resu lts whether descended section. or undescended GLUCOSE LEVEL Routine 01/03/2022 10:18 Malignant neoplasm Resu lts for this AM [employer] ECONOMICS of unspecified procedure are in testis, unspecified the resu lts whether descended section. or undescended COMPREHENSIVE METABOLIC Routine 01/03/2022 10:18 Malignant julia plasm PANEL AM [employer] ECONOMICS of unspecified testis, unspecified whether descended or undescended COMPLETE BLOOD COUNT W/ Routine 01/03/2022 10:18 Malignant julia plasm DIFFERENTIAL AM [employer] ECONOMICS of unspecified testis, unspecified whether descended or undescended TESTOSTERONE LEVEL Routine 01/03/2022 10:18 Malignant neoplasm Results for this AM [employer]CONOMICS of unspecified procedure are in testis, unspecified the resu lts whether descended section. or undescended BHCG, TUMOR MARKER Routine 01/03/2022 10:18 Malignant neoplasm Results for this AM [employer] of unspecified procedure are in testis, unspecified the resu lts whether descended section. or undescended ALPHA FETOPROTEIN TUMOR Routine 01/03/2022 10:18 Malignant julia plasm Results for this MARKER AM [employer]OM[employer] of unspecified procedure are in testis, unspecified the resu lts whether descended section. or undescended MAGNESIUM LEVEL Routine 01/03/2022 10:18 Malignant neoplasm Re sults for this AM [employer]CONOM[employer] of unspecified procedure are in testis, unspecified the resu lts whether descended section. or undescended after 09/13/[address] Chest Abdomen Pelvis with Contrast (07/04/2022 2:35 PM CDT)Only the most recent of2 resultswithin the time period is included. Anatomical Region Laterality Modality Abdomen, Pelvis, Chest Computed Tomograp hy Specimen (Source) Anatomical Collection Method Collection Time Re ceived Time Location / / Volume Laterality 07/04/2022 3:14 PM CDT Impressions 07/04/2022 3:31 PM CDT 1. No definite recurrent/metastatic disease in the chest, abdomen pelvis. 2. Slight increase in size of a lower left para-aortic node since 01/03/2022. The location of the lymph node in the left para-aortic region just above the bifurcation is atypical for initial spread fr om right testicular malignancy) reactive etiology is favored. But, this node will be closely monitored on follow-up imaging. Note is also made of normal serum tumor markers. 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 The patient is on surveillance since then. Indication: Evaluate for recurrence/meta static disease Comparison: 01/03/2022, 07/12/2021 and multiple prior studies dating back to 06/26/2020. Technique: Axial postcontrast CT of the chest, abdomen and pelvis is performed after the administration of oral and intravenous contrast. The axial images are reformatted into images in sagittal and coronal planes. Findings: Primary Tumor: Postsurgical changes of r ight inguinal orchiectomy are again seen. Locoregional Lymph Nodes: A left para-ao rtic node just above the aortic bifurcation has slightly increased in size, now measures 1.9 x 1.1 cm (series 302, image 221) and previously measured 1.4 x 0.8 cm . The location of the lymph node in the left para-aortic region just above the bifurcation is atypical for initial spread from right testicular malignancy) reactive etiology is favored. But, this node w ill be closely monitored on follow-up im aging. A few mildly prominent external iliac nodes are likely reactive in etiology. Metastatic disease:No definite distant m etastatic disease is identified. A few small punctate left lung nodules (series 303, images 88 and 109) are stable since 10/08/2020 and are likely benign in etiology. Others: Chest: The thyroid gland is unremarkable . The aorta and the central pulmonary arteries demonstrate normal course and caliber. No suspicious hilar, mediastinal, axillary or supraclavicular lymphadenopath y seen. No new or progressive pulmonary parenchymal nodules or masses are identified. No pleural effusions are seen. Abdomen and pelvis: The liver, gallbladd er, spleen, pancreas, adrenal glands and both kidneys are unremarkable. The abdominal aorta and IVC demonstrate normal course and caliber. The urinary bladder i s well-distended and is unremarkable. No abnormally dilated small bowel or large bowel loops are identified. No free fluid is seen in the abdomen and pelvis. Bones: No suspicious osseous lesions are identified. A few sclerotic foci in the pelvis and proximal femurs are consistent with bone islands. Procedure Note Kaykay Coughlin MD - 07/04/2022Forma tting of this note might be different from the original. 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 The patient is on surveillance since then. Indication: Evaluate for recurrence/meta static disease Comparison: 01/03/2022, 07/12/2021 and franco ling prior studies dating back to 06/26/2020. Technique: Axial postcontrast CT of the chest, abdomen and pelvis is performed after the administration of oral and intravenous contrast. The axial images are reformatted into images in sagittal and coronal planes. Findings: Primary Tumor: Postsurgical changes of r ight inguinal orchiectomy are again seen. Locoregional Lymph Nodes: A left para-ao rtic node just above the aortic bifurcation has slightly increased in size, now measures 1.9 x 1.1 cm (series 302, image 221) and previously measured 1.4 x 0.8 cm. The location of the lymph node in the left para-aorti c region just above the bifurcation is atypical for initial spread from right testicular malignancy) reactive etiology is favored. But, this node will be closely monitored on follow-up imaging. A few mi ldly prominent external iliac nodes are likely reactive in etiology. Metastatic disease:No definite distant m etastatic disease is identified. A few small punctate left lung nodules (series 303, images 88 and 109) are stable since 10/08/2020 and are likely benign in etiology. Others: Chest: The thyroid gland is unremarkable . The aorta and the central pulmonary arteries demonstrate normal course and caliber. No suspicious hilar, mediastinal, axillary or supraclavicular lymphadenopathy seen. No new or progressive pulmonary parenchymal nodules or masses are identified. No pleural effusions are seen. Abdomen and pelvis: The liver, gallbladd er, spleen, pancreas, adrenal glands and both kidneys are unremarkable. The abdominal aorta and IVC demonstrate normal course and caliber. The urinary bladder is well-distended and is unremarkable. No a bnormally dilated small bowel or large bowel loops are identified. No free fluid is seen in the abdomen and pelvis. Bones: No suspicious osseous lesions are identified. A few sclerotic foci in the pelvis and proximal femurs are consistent with bone islands. IMPRESSION: 1. No definite recurrent/metastatic dise ase in the chest, abdomen pelvis. 2. Slight increase in size of a lower le ft para-aortic node since 01/03/2022. The location of the lymph node in the left para-aortic region just above the bifurcation is atypical for initial spread from right testicular malignancy) reactive etiology is favored. But, this node will be closely monitored on follow-up imaging. Note is also made of normal serum tumor markers. Lola Kidd APRN IMG CT ORDERABLES BHCG, Tumor Marker (07/04/2022 12:50 PM CDT)Only the most recent of2 results within the time period is included. athologist Signature Beta HCG, Tumor <0.6 <=0.9 [facility] Marker mIU/mL [facility] Comment: Tumor Markers [facility] Reference Range: Negative: <1.0 mIU/mL Non- pre-menopausal women: </= 1 .0 mIU/mL Post-menopausal women: </= 7.0 mIU/mL Men: < 2.0 mIU/mL Specimen Anatomical Collection Method Collection Time Receive d Time (Source) Location / / Volume Laterality Blood 07/04/2022 12:50 07/04/2022 1:39 PM CDT PM CDT Lola Kidd APRN LAB BLOOD ORDERABLES Performing Organization Address City/State/ZIP Code Phon e Number [facility] CANCER Unless otherwise noted, [place] [address] CENTER all lab tests performed by: Division of Pathology and Laboratory Medicine [address] [place] [address] .Serum Creatinine (07/04/2022 12:50 PM CDT)Only the most recent of2 results within the time period is included. athologist Signature Creatinine 0.94 0.67 - 1.17 [facility] mg/dL [facility] Specimen Anatomical Collection Method Collection Time Receive d Time (Source) Location / / Volume Laterality Blood 07/04/2022 12:50 07/04/2022 1:39 PM CDT PM CDT Lola Kidd CHLORINE CELLS OPERATOR LAB BLOOD ORDERABLES Performing Organization Address City/State/ZIP Code Phon e Number [facility] CANCER Unless otherwise noted, [place] [address] CENTER all lab tests performed by: Division of Pathology and Laboratory Medicine [address] [place] (ABNORMAL) .CBC (07/04/2022 12:50 PM CDT)Only the most recent of2 resultswithin the time period is included. athologist Signature WBC 8.9 4.0 - 11.0 [facility] K/uL RBC 5.87 4.50 - 6.00 [facility] M/uL Hgb 16.9 14.0 - 18.0 [facility] gm/dL Comment: As part of CBC or as an individ ual orderable testing performed at [facility], [address] , [address], [place] [address] Hct 52.8 40.0 - 54.0 % [facility] Comment: As part of CBC or as an individ ual orderable testing performed at [facility] Care [facility], [address] , [address], [place] [address] MCV 90 82 - 98 fL [facility] MCH 28.8 27.0 - 31.0 pg [facility] MCHC 32.0 31.0 - 36.0 gm/dL [facility] RDW-SD 49.7 (H) 35.1 - 46.3 fL [facility] RDW-CV 15.1 12.0 - 15.5 % [facility] Platelet count 305 140 - 440 K/uL [facility] Comment: As part of CBC or as an individ ual orderable testing performed at [facility], [address] , [address], [place] [address] MPV 10.0 4.0 - 10.4 fL [facility] INRBC 0.0 <=0.0 % [facility] Comment: The INRBC (instrument NRBC) value reflec ts the enumeration of nucleated red blood cells contained i n a 200uL sample of whole blood analyzed by the instrumen t. This value may differ from the NRBC value reported in a manual differential, which is based on a 100 cell differentia l. As part of CBC testing performed at [facility] Coding Manager Bldg [address], [address], [place] [address] Specimen Anatomical Collection Method Collection Time Receive d Time (Source) Location / / Volume Laterality Blood 07/04/2022 12:50 07/04/2022 1:32 PM CDT PM CDT Lolajuan pablo Mauricejose BURKETT LAB BLOOD ORDERABLES Performing Organization Address City/[facility] Code Phon e Number [facility] [address] [place] [address] [address] Glomerular Filtration Rate (07/04/2022 12:50 PM CDT)Only the most recent of2 resultswithin the time period is included. athologist Signature eGFR 116 >=60 [facility] mL/min/1.73 [facility]ENTER sq. m Comment: The eGFRcr is calculated with the 2020 KD-EPI creatinine equation using creatinine, patient's age, and sex for adults 18 years of age and older. Other factors, especially muscle mass, may affect accuracy and need to be considered. According to the Kidney Disease: Improvi ng Global Outcomes (KDIGO) CKD Work Group 2012 Clinical Practice Guideline, chronic kidney disease (CKD) is defined as the abnormalities of kidney structure or function, present for more than 3 months, with implications for health. CKD should be c lassified by cause, GFR category, and albuminuria category. KDIGO guidelines provide the following GFR categories Stage Description GFR mL/min/1.73 m2 G1* Normal or high >= 90 G2* Mildly decreased 60-89 G3a Mildly to moderately decreased 45-59 G3b Moderately to severely decreased 30- 44 G4 Severely decreased 15-29 G5 Kidney failure <15 *In the absence of evidence of kidney da mage, neither G1 nor G2 fulfill criteria for CKD. Specimen Anatomical Collection Method Collection Time Receive d Time (Source) Location / / Volume Laterality Blood 07/04/2022 12:50 07/04/2022 1:39 PM CDT PM CDT Lola Kidd APRN LAB BLOOD ORDERABLES Performing Organization Address City/[facility]/ZIP Code Phon e Number [facility] CANCER Unless otherwise noted, [place] [address] CENTER all lab tests performed by: Division of Pathology and Laboratory Medicine [address] [facility] Fractionated Bilirubin (07/04/2022 12:50 PM CDT)Only the most recent of2 results within the time period is included. [facility] Bili Total 0.4 <=1.2 mg/dL [facility] Comment: Indocyanine Green (ICG) may cause falsel y elevated bilirubin results. Total and direct bilirubin must not be measured from samples containing indocyanine green. False elevation of total bilirubin can b e seen in patients with IgG concentrations above 28 g/L. Bili Direct <0.2 <=0.3 mg/dL [facility] [facility] Comment: Indocyanine Green (ICG) may cau se falsely elevated bilirubin results. Total and direct bilirubin must not be measure d from samples containing indocyanine green. Bili Indirect See Note 0.0 - 0.9 mg/dL CO MD MARTINES [facility] Comment: Unable to calculate Indirect Bi lirubin result due to some parameters are outside reportable range Specimen Anatomical Collection Method Collection Time Receive d Time (Source) Location / / Volume Laterality Blood 07/04/2022 12:50 07/04/2022 1:39 PM CDT PM CDT Lolajuan pablo Jenkinsmario alberto BURKETT LAB BLOOD ORDERABLES Performing Organization Address City/State/ZIP Code Phon e Number [facility] CANCER Unless otherwise noted, [place] [address] [place] all lab tests performed by: Division of Pathology and Laboratory Medicine [facility]5 [facility] AFP (07/04/2022 12:50 PM CDT)Only the most recent of2 resultswithin the time period is included. [facility] AFP <2.7 <=8.3 ng/mL [facility] Comment: Results greater than 45,875.00 ng/mL may not be reliable due to matrix effect with extended dilution as it exceeds the data specialist's recommended limit. Caution should be exercised when interpreting such values and done in conjunction with clinical context. This test is measured by electrochemilum inescence immunoassay on Trinh Danica immunoassay analyzers. Results obtained in different methods are not interchangeable. Specimen Anatomical Collection Method Collection Time Receive d Time (Source) Location / / Volume Laterality Blood 07/04/2022 12:50 07/04/2022 1:50 PM CDT PM CDT Lola Jenkinsmario alberto CHLORINE CELLS OPERATOR LAB BLOOD ORDERABLES Performing Organization Address City/State/ZIP Code Phon e Number [facility] CANCER Unless otherwise noted, [place] [address] CENTER all lab tests performed by: Division of Pathology and Laboratory Medicine [facility]5 [facility] (ABNORMAL) Differential (07/04/2022 12:50 PM CDT)Only the most recent of2 resultswithin the time period is included. athologist Signature Neutrophil % 81.8 (H) 42.0 - [facility] 66.0 % Comment: As part of Differential perform ed at [facility], [address] [place] [address], [address], [place] [phone] Lymphocyte % 9.1 (L) 24.0 - 44.0 % [facility] Monocyte % 7.2 (H) 2.0 - 7.0 % [facility] Eosinophil % 1.0 1.0 - 4.0 % [facility] Basophil % 0.3 0.0 - 1.0 % [facility] IGRE % 0.6 (H) 0.0 - 0.4 % [facility] Comment: IGRE % count includes Metamyelocytes, My elocytes, and Promyelocytes. As part of Differential performed at [facility] Coding Manager [facility], [address], [address], [place] [address] Neutrophil Abs 7.31 (H) 1.70 - 7.30 K/uL [facility] Lymphocyte Abs 0.81 (L) 1.00 - 4.80 K/uL [facility] Monocyte Abs 0.64 0.08 - 0.70 K/uL [facility] Eosinophil Abs 0.09 0.04 - 0.40 K/uL [facility] Basophil Abs 0.03 0.00 - 0.10 K/uL [facility] IG Abs 0.05 (H) 0.00 - 0.04 K/uL [facility] Specimen Anatomical Collection Method Collection Time Receive d Time (Source) Location / / Volume Laterality Blood 07/04/2022 12:50 07/04/2022 1:32 PM CDT PM CDT Lolajuan pablo Mauricejose CHLORINE CELLS OPERATOR LAB BLOOD ORDERABLES Performing Organization Address City/State/ZIP Code Phon e Number [facility] [address] [facility] [place] [address] [address] BUN (07/04/2022 12:50 PM CDT)Only the most recent of2 resultswithin the time period is included. P athologist Signature BUN 15 6 - 23 [facility] mg/dL CANCER CENTER Specimen Anatomical Collection Method Collection Time Receive d Time (Source) Location / / Volume Laterality Blood 07/04/2022 12:50 07/04/2022 1:39 PM CDT PM CDT Lola Ahmad CHLORINE CELLS OPERATOR LAB BLOOD ORDERABLES Performing Organization Address City/[facility] Code Phon e Number [facility] Unless otherwise noted, [address] all lab tests performed by: Division of Pathology and Laboratory Medicine [address] [place] [address] ALT (07/04/2022 12:50 PM CDT)Only the most recent of2 resultswithin the time period is included. P athologist Signature ALT 32 <=41 U/L [facility] Specimen Anatomical Collection Method Collection Time Receive d Time (Source) Location / / Volume Laterality Blood 07/04/2022 12:50 07/04/2022 1:39 PM CDT PM CDT Lola Josafatmad CHLORINE CELLS OPERATOR LAB BLOOD ORDERABLES Performing Organization Address City/[facility] Code Phon e Number [facility] Unless otherwise noted, [address] all lab tests performed by: Division of Pathology and Laboratory Medicine [address] [place] [address] (ABNORMAL) Aspartate Aminotransferase (07/04/2022 12:50 PM CDT)Only the most recent of2 resultswithin the time period is included. P athologist Signature AST 41 (H) <=40 U/L [facility] Specimen Anatomical Collection Method Collection Time Receive d Time (Source) Location / / Volume Laterality Blood 07/04/2022 12:50 07/04/2022 1:39 PM CDT PM CDT Lola Ahmad CHLORINE CELLS OPERATOR LAB BLOOD ORDERABLES Performing Organization Address City/[facility]/ZIP [facility] Phon e Number [facility] Unless otherwise noted, [address] all lab tests performed by: Division of Pathology and Laboratory Medicine [address] [place] (ABNORMAL) Testosterone Level (07/04/2022 12:50 PM CDT)Only the most recent of2 resultswithin the time period is included. Analysis Performed At Patho logist Time Signature Testoster Tot >1,390 (H) 249 - 836 [facility] ng/[facility] Comment: Reference Ranges: Male: Age 20 - 49 249 - 836 Age >=50 1 93 - 740 Female: Age 20 - 49 8 - 48 Age >=50 3 - 41 Specimen Anatomical Collection Method Collection Time Receive d Time (Source) Location / / Volume Laterality Blood 07/04/2022 12:50 07/04/2022 2:26 PM CDT PM CDT Lola Kidd APRN LAB BLOOD ORDERABLES Performing Organization Address City/[facility]/ZIP [facility] Phon e Number [facility] CANCER Unless otherwise noted, [address] all lab tests performed by: Division of Pathology and Laboratory Medicine [address] [place] Total Protein (07/04/2022 12:50 PM CDT)Only the most recent of2 resultswithin the time period is included. P athologist [facility] Total Protein 7.3 6.4 - 8.3 [facility] g/dL [facility] Specimen Anatomical Collection Method Collection Time Receive d Time (Source) Location / / Volume Laterality Blood 07/04/2022 12:50 07/04/2022 1:39 PM CDT PM CDT Lola Kidd APRN LAB BLOOD ORDERABLES Performing Organization Address City/[facility] Phon e Number [facility] CANCER Unless otherwise noted, [address] all lab tests performed by: Division of Pathology and Laboratory Medicine [address] [place] Alkaline Phosphatase (07/04/2022 12:50 PM CDT)Only the most recent of2 results within the time period is included. P athologist Signature Alk Phos 79 40 - 129 [facility] U/L [facility] Specimen Anatomical Collection Method Collection Time Receive d Time (Source) Location / / Volume Laterality Blood 07/04/2022 12:50 07/04/2022 1:39 PM CDT PM CDT Lola Kidd CHLORINE CELLS OPERATOR LAB BLOOD ORDERABLES Performing Organization Address City/State/ZIP Code Phon e Number [facility] CANCER Unless otherwise noted, [address] all lab tests performed by: Division of Pathology and Laboratory Medicine [address] [place] Glucose Level (07/04/2022 12:50 PM CDT)Only the most recent of2 resultswithin the time period is included. P athologist Signature Glucose Level 88 70 - 99 [facility] mg/dL [facility] Comment: Effective 09/13/15, the glucose reference intervals have been updated based on [place] Diabetes [employer] guidelines (Standards of Medical Care in Diabetes 2016. Diabetes Care 2016; 39: S13-S22). Fasting blood glucose: Normal: 70-99 mg/dL Impaired fasting glucose (increased risk for diabetes or pre-diabetes): 100- 125 mg/dL Diabetes mellitus: >/=126 mg/dL Random blood glucose: Normal: 70-199 mg/dL Note: Random glucose >100 mg/dL is assoc iated with increased risk for diabetes Specimen Anatomical Collection Method Collection Time Receive d Time (Source) Location / / Volume Laterality Blood 07/04/2022 12:50 07/04/2022 1:39 PM CDT PM CDT Lola Kidd CHLORINE CELLS OPERATOR LAB BLOOD ORDERABLES Performing Organization Address City/[facility]/ZIP Code Phon e Number [facility] CANCER Unless otherwise noted, [address] all lab tests performed by: Division of Pathology and Laboratory Medicine [address] [place] Calcium Level (07/04/2022 12:50 PM CDT)Only the most recent of2 resultswithin the time period is included. P athologist Signature Calcium Lvl 9.9 8.4 - 10.2 [facility] mg/dL [facility] Specimen Anatomical Collection Method Collection Time Receive d Time (Source) Location / / Volume Laterality Blood 07/04/2022 12:50 07/04/2022 1:39 PM CDT PM CDT Lola Kidd CHLORINE CELLS OPERATOR LAB BLOOD ORDERABLES Performing Organization Address City/[facility]/ZIP Code Phon e Number [facility] CANCER Unless otherwise noted, [address] all lab tests performed by: Division of Pathology and Laboratory Medicine [address] [place], [place] [address]d Albumin Level (07/04/2022 12:50 PM CDT)Only the most recent of2 resultswithin the time period is included. athologist [facility] Albumin Lvl 4.3 3.5 - 5.2 [facility] gm/dL [facility] Specimen Anatomical Collection Method Collection Time Receive d Time (Source) Location / / Volume Laterality Blood 07/04/2022 12:50 07/04/2022 1:39 PM CDT PM CDT Lola Josafatjose BURKETT LAB BLOOD ORDERABLES Performing Organization Address City/[facility] Phon e Number [facility] CANCER Unless otherwise noted, [address] all lab tests performed by: Division of Pathology and Laboratory Medicine [address] [place] [address] Electrolyte Panel (07/04/2022 12:50 PM CDT)Only the most recent of2 results within the time period is included. [facility] Sodium Lvl 137 136 - 145 [facility] mEq/L [facility] Potassium Lvl 4.6 3.5 - 5.1 [facility] mEq/L [facility] Chloride 101 98 - 107 [facility] mEq/L [facility] CO2 24 22 - 29 [facility] mEq/L [facility] Anion Gap 12 4 - 14 [facility] mEq/L [facility] Specimen Anatomical Collection Method Collection Time Receive d Time (Source) Location / / Volume Laterality Blood 07/04/2022 12:50 07/04/2022 1:39 PM CDT PM CDT Lola Kidd APRN LAB BLOOD ORDERABLES Performing Organization Address City/[facility] Phon e Number [facility] CANCER Unless otherwise noted, [address] all lab tests performed by: Division of Pathology and Laboratory Medicine [address] [place], [place] [address]d POC Creatinine (07/04/2022 12:48 PM CDT) athologist [facility] POC Crea 1.0 0.6 - 1.3 [facility] mg/dL Comment: Medications, especially hydroxyurea or s upplements, such as ascorbate, can interfere with test results causing a falsely and significantly higher result than expected. If a problem is suspected with a patient's result, a sample should be sent to the laboratory for confirmatory testing. Method description: The i-STAT is an smiley lyzer used for in vitro quantification of various analytes in whole blood. The device uses a single disposable cartridge which contains microfabricated sensors, a calibration solution, fluidics system, and a waste chamber. Each test cartridge contains ch emically sensitive biosensors on a silicon chip that are configured to perform specific tests. The microfabricated sensors measure analyte concentration by an electrochemical assay. POC EGFR 108 >=60 mL/min/1.73 sq. m POC [facility] Comment: The eGFRcr is calculated with the 2020 KD-EPI creatinine equation using creatinine, patient's age, and sex for adults 18 years of age and older. Other factors, especially muscle mass, may affect accuracy and need to be considered. According to the Kidney Disease: Improvi ng Global Outcomes (KDIGO) CKD Work Group 2012 Clinical Practice Guideline, chronic kidney disease (CKD) is defined as the abnormalities of kidney structure or function, present for more than 3 months, with implications for health. CKD should be c lassified by cause, GFR category, and albuminuria category. KDIGO guidelines provide the following GFR categories Stage Description GFR mL/min/1.73 m2 G1* Normal or high >= 90 G2* Mildly decreased 60-89 G3a Mildly to moderately decreased 45-59 G3b Moderately to severely decreased 30- 44 G4 Severely decreased 15-29 G5 Kidney failure <15 *In the absence of evidence of kidney da mage, neither G1 nor G2 fulfill criteria for CKD. POC Clean Dev Yes POC [facility] Performing Lab [facility] POC [facility] Comment: [facility], [address] [place] [id number]; Lab Direct or: Janette Chaves MD; Waived Point of Care Testing - Maryanne Fraser MD Specimen Anatomical Collection Method Collection Time Receive d Time (Source) Location / / Volume Laterality Blood 07/04/2022 12:48 07/04/2022 PM CDT 12:48 PM CDT Lola Kidd APRN POCT ORDERABLES - DEVICE Performing Organization Address City/State/ZIP Code Phon e Number POC [facility] Unless otherwise noted, [place] [address] lab tests performed by: Division of Pathology and Laboratory Medicine [address] [facility] Magnesium Level (01/03/2022 10:18 AM DIRECTOR MEDICAL ECONOMICS) P athologist Signature Magnesium 2.1 1.6 - 2.6 [facility] mg/dL Comment: Testing Performed at [facility], [address] [facility] [address], [address], [place] [address] Specimen Anatomical Collection Method Collection Time Receive d Time (Source) Location / / Volume Laterality Blood 01/03/2022 10:18 01/03/2022 AM DIRECTOR MEDICAL ECONOMICS 10:25 AM DIRECTOR MEDICAL ECONOMICS Lolajuan pablo Jnekinsmario alberto CHLORINE CELLS OPERATOR LAB BLOOD ORDERABLES Performing Organization Address City/State/ZIP Code Phon e Number [facility] [address] [facility] [facility] [place] [address] [address] after 09/13/2021 Insurance Payer Benefit Plan / Subscriber ID Effective Dates Phone Addre ss Type Group [employer] [place] PPO POS [id number] 2021-Present [address] [place] [address] (Home) [place] [address] Gilmar Gonzalez Jr. Personal/Family Self [address] [place] [address] (Home) [place] [address] Care Teams Director Of Safety And Security Relationship Specialty Start Date End Date Jose Culver MD PCP - External Follow Up A Urology 07/10/[address] [place] [address]
[2022-09-13 19:22] LABS: Absolute Lymphocytes (CBC) 0.9 K/uL (0.7-4.9); Hematocrit 42.8 % (39.6-49.0); Lymphocytes % 7.2 % (15.3-44.8); MCV 83.8 fL (80-100); MPV 7.6 fL (7.6-11.3); RBC Red Blood Cell Count 5.11 M/uL (4.33-5.43)
[2022-09-13 19:31] LABS: Potassium 3.7 mEq/L (3.5-5.1)
--- NOTE | 2022-09-13 19:45 | RAD REPORT ---
EXAM DESCRIPTION: RAD - Femur Right - 09/13/2022 7:36 pm CLINICAL HISTORY: Right leg pain and swelling FINDINGS: No fracture is seen. No bony abnormality is displayed
--- NOTE | 2022-09-13 20:07 | RAD REPORT ---
EXAM DESCRIPTION: US - Extremity Nonvascular Limited - 09/13/2022 7:46 pm CLINICAL HISTORY: Right leg swelling COMPARISON: None FINDINGS: Ill-defined fluid is present within the superficial tissues right thigh. There is increase d vascularity. This likely represents a cellulitis. A discrete abscess is not seen IMPRESSION: Cellulitis right thigh
--- NOTE | 2022-09-13 20:08 | EDPHYS ---
Physician Documentation [facility] Name: Gilmar Gonzalez Jr Age: 27 yrs Sex: Male : 1995 Arrival Date: 09/13/2022 Time: 17:55 Bed 14 Private MD: ED Physician Bill Combs HPI: 09/13 18:45 This 27 yrs old Male presents to ER via Ambulatory with complaints of Abscess. cp 18:45 the patient presents with a swollen area of the lateral aspect of right thigh. cp Description: erythematous, swollen, warm. Onset: The symptoms/episode began/occurred about 4-6 weeks ago. Possible cause(s): unsure, denies trauma to area and believes may have started after working out and performing squats. Associated signs and symptoms: Pertinent positives: erythema, Pertinent negatives: discharge, drainage, fever, shortness of breath, vomiting. Modifying factors: the symptoms are aggravated by movement. Patient reports sticking needle in area about 1 week ago and draining blood from area. Historical: - Allergies: 18:16 No Known Allergies; hb - Home Meds: 18:16 None [Active]; hb - PMHx: 18:16 None; hb - PSHx: 18:16 Testicular CA; hb - Immunization history:: Adult Immunizations up to date. - Social history:: Smoking status: Patient denies any tobacco usage or history of. ROS: 18:50 Constitutional: Negative for body aches, chills, fever, poor PO intake. cp 18:50 Eyes: Negative for injury, pain, redness, and discharge. cp 18:50 ENT: Negative for drainage from ear(s), ear pain, sore throat, difficulty swallowing, difficulty handling secretions. 18:50 Cardiovascular: Negative for chest pain, palpitations. 18:50 Respiratory: Negative for cough, shortness of breath, wheezing. 18:50 Abdomen/GI: Negative for abdominal pain, nausea, vomiting, and diarrhea. 18:50 MS/extremity: Positive for ecchymosis, erythema, pain, swelling, tenderness, of the lateral side of right thigh. 18:50 Neuro: Negative for altered mental status, dizziness, headache, weakness. 18:50 All other systems are negative. Exam: 18:55 Constitutional: The patient appears in no acute distress, alert, awake, cp non-diaphoretic, non-toxic, well developed, well nourished. 18:55 Head/Face: Normocephalic, atraumatic. cp 18:55 Eyes: Periorbital structures: appear normal, Conjunctiva: normal, no exudate, no injection, Lids and lashes: appear normal, bilaterally. 18:55 ENT: External ear(s): are unremarkable, Nose: is normal, Mouth: Lips: moist, Oral mucosa: pink and intact, moist, Posterior pharynx: is normal, airway is patent, no erythema, no exudate. 18:55 Chest/axilla: Inspection: normal. 18:55 Cardiovascular: Rate: tachycardic, Rhythm: regular. 18:55 Respiratory: the patient does not display signs of respiratory distress, Respirations: normal, no use of accessory muscles, no retractions, labored breathing, is not present, Breath sounds: are clear throughout, no decreased breath sounds, no stridor, no wheezing. 18:55 Abdomen/GI: Exam negative for discomfort, distension, guarding, Inspection: abdomen appears normal. 18:55 Back: pain, is absent, ROM is normal. 18:55 Musculoskeletal/extremity: Extremities: noted in the right thigh: Examination reveals a large area of mild erythema with a fluctuant tender center, no drainage is expressed and the surrounding skin feels warm to the touch. Vital Signs: 18:14 BP 168 / 83; Pulse 102; Resp 18; Temp 98.4(TE); Pulse Ox 100% on R/A; Weight 102.06 kg; hb Height 6 ft. 1 in. ; Pain 5/10; 20:30 BP 159 / 94; Pulse 108; Resp 18 S; Pulse Ox 100% on R/A; ha1 21:00 BP 156 / 90; Pulse 108; Resp 18 S; Pulse Ox 99% on R/A; ha1 22:00 BP 135 / 88; Pulse 100; Resp 18 S; Pulse Ox 100% on R/A; ha1 18:14 Body Mass Index 29.68 (102.06 kg, 185.42 cm) hb 18:14 Pain Scale: Adult hb MDM: 18:30 Patient medically screened. cp 19:20 Management of patient was discussed with the following: Tube Pusher: DR Quentin johnson concerning need for I\T\D, will consult and requests admission to services of hospitalist. 20:05 Data reviewed: vital signs, nurses notes, lab test result(s), radiologic studies, plain cp films, ultrasound, I have discussed the patient's presentation/case with the attending Emergency Department Physician; and as a result, I will admit patient. 20:05 I considered the following discharge prescriptions or medication management in the emergency department Medications were administered in the Emergency Department. See MAR. Counseling: I had a detailed discussion with the patient and/or guardian regarding: the historical points, exam findings, and any diagnostic results supporting the discharge/admit diagnosis, lab results, radiology results. Response to treatment: the patient's symptoms have mildly improved after treatment. 09/13 18:36 Order name: Basic Metabolic Panel; Complete Time: 19:40 09/13 19:40 Interpretation: Reviewed. 09/13 18:36 Order name: CBC with Diff; Complete Time: 19:43 09/13 19:43 Interpretation: Normal except: WBC 13.00; AGUSTINA% 84.9; LYM% 7.2; NEUT A 11.0. 09/13 20:20 Order name: Urinalysis w/ reflexes [facility] 09/13 20:20 Order name: Basic Metabolic Panel [facility] 09/13 20:20 Order name: Basic Metabolic Panel [facility] 09/13 20:20 Order name: CBC with Automated Diff [facility] 09/13 20:20 Order name: CBC with Automated Diff [facility] 09/13 20:20 Order name: Magnesium [facility] 09/13 20:20 Order name: Magnesium [facility] 09/13 18:36 Order name: XRAY Femur RIGHT; Complete Time: 20:05 09/13 18:36 Order name: US Extrmty Nonvasular Limited; Complete Time: 20:08 09/13 20:08 Interpretation: Report reviewed. 09/13 18:36 Order name: EKG; Complete Time: 18:37 09/13 20:20 Order name: CONS Physician Consult [facility] 09/13 20:20 Order name: NPO [facility] 09/13 20:20 Order name: Regular [facility] 09/13 18:36 Order name: Cardiac monitoring; Complete Time: 20:38 09/13 18:36 Order name: EKG - Nurse/Tech; Complete Time: 21:58 09/13 18:36 Order name: IV Saline Lock; Complete Time: 19:16 09/13 18:36 Order name: Labs collected and sent; Complete Time: 19:16 cp 09/13 18:36 Order name: O2 Per Protocol; Complete Time: 19:16 cp 09/13 18:36 Order name: O2 Sat Monitoring; Complete Time: 19:16 cp Administered Medications: 20:44 CANCELLED (Physician Discretion): LORazepam PO 2 mg PO once cp 20:50 Drug: Clindamycin IVPB 900 mg Route: IVPB; Infused Over: 30 mins; Site: right forearm; ha1 21:30 Follow up: Response: No adverse reaction; IV Status: Completed infusion; IV Intake: [id number] 20:58 Drug: LORazepam PO 1 mg Route: PO; ha1 21:30 Follow up: Response: No adverse reaction ha1 Disposition Summary: 09/13/22 20:08 Hospitalization Ordered Hospitalization Status: Observation cp Location: Telemetry/MedSurg (observation) cp Condition: Stable cp Problem: new cp Symptoms: have improved cp Bed/Room Type: Standard cp Room Assignment: [facility](09/13/22 20:14) Provider: Charles Donato(09/13/22 20:41) cp Diagnosis - Nontraumatic hematoma of soft tissue - right upper leg cp - Cellulitis of right lower limb cp Forms: - Medication Reconciliation Form cp - SBAR form cp Signatures: Dispatcher [employer] EDGriselda Coley RN GINNY Bill Rose PA PA cp Alice Sam RN RN Jasmin Reyna RN RN ha1 Corrections: (The following items were deleted from the chart) 20:14 20:08 cp 20:41 20:08 Rut Milian cp 20:44 20:43 LORazepam PO 2 mg PO once ordered. cp cp
--- NOTE | 2022-09-13 20:08 | ER ---
Nurse's Notes [facility] Name: Gilmar Gonzalez Jr Age: 27 yrs Sex: Male : 1995 Arrival Date: 09/13/2022 Time: 17:55 Bed 14 Private MD: Diagnosis: Nontraumatic hematoma of soft tissue-right upper leg;Cellulitis of right lower limb Presentation: 09/13 18:14 Chief complaint: Abscess on right thigh x 4-6 weeks, attempted to daly 1 week ago. hb Coronavirus screen: At this time, the client does not indicate any symptoms associated with coronavirus-19. Ebola Screen: No symptoms or risks identified at this time. Initial Sepsis Screen: Does the patient meet any 2 criteria? No. Patient's initial sepsis screen is negative. Does the patient have a suspected source of infection? No. Patient's initial sepsis screen is negative. Risk Assessment: Do you want to hurt yourself or someone else? Patient reports no desire to harm self or others. Onset of symptoms was July 2022. 18:14 Method Of Arrival: Ambulatory hb 18:14 Acuity: MITCH 3 hb Historical: - Allergies: 18:16 No Known Allergies; hb - Home Meds: 18:16 None [Active]; hb - PMHx: 18:16 None; hb - PSHx: 18:16 Testicular CA; hb - Immunization history:: Adult Immunizations up to date. - Social history:: Smoking status: Patient denies any tobacco usage or history of. Screenin:30 Abuse screen: Denies threats or abuse. Denies injuries from another. Nutritional ha1 screening: No deficits noted. Tuberculosis screening: No symptoms or risk factors identified. Assessment: 20:30 General: Appears comfortable, Behavior is calm, cooperative. Pain: Denies pain. Neuro: ha1 Level of Consciousness is awake, alert, obeys commands, Oriented to person, place, time, situation. Cardiovascular: Patient's skin is warm and dry. Respiratory: Airway is patent Respiratory effort is even, unlabored, Respiratory pattern is regular, symmetrical. Derm: Wound noted right hamstring Wound is red, clear drainage. 20:30 Musculoskeletal: Circulation, motion, and sensation intact. Range of motion: intact in ha1 all extremities. 21:00 Reassessment: attempted to give report. ha1 21:00 Reassessment: Patient and/or family updated on plan of care and expected duration. Pain ha1 level reassessed. Patient is alert, oriented x 3, equal unlabored respirations, skin warm/dry/pink. 22:00 Reassessment: Patient and/or family updated on plan of care and expected duration. Pain ha1 level reassessed. Patient is alert, oriented x 3, equal unlabored respirations, skin warm/dry/pink. Patient denies pain at this time. Vital Signs: 18:14 BP 168 / 83; Pulse 102; Resp 18; Temp 98.4(TE); Pulse Ox 100% on R/A; Weight 102.06 kg; hb Height 6 ft. 1 in. ; Pain 5/10; 20:30 BP 159 / 94; Pulse 108; Resp 18 S; Pulse Ox 100% on R/A; ha1 21:00 BP 156 / 90; Pulse 108; Resp 18 S; Pulse Ox 99% on R/A; ha1 22:00 BP 135 / 88; Pulse 100; Resp 18 S; Pulse Ox 100% on R/A; ha1 18:14 Body Mass Index 29.68 (102.06 kg, 185.42 cm) hb 18:14 Pain Scale: Adult hb ED Course: 17:58 Patient arrived in ED. ts1 18:01 Bill Rose PA is PHCP. cp 18:01 Bill Combs MD is Attending Physician. cp 18:16 Triage completed. hb 18:16 Arm band placed on. hb 18:55 Missed attempt(s): 20 gauge in right antecubital area. Bleeding controlled, band aid jl7 applied, catheter tip intact. 19:05 Initial lab(s) drawn, by pa, sent to lab. Inserted saline lock: 20 gauge in right jl7 forearm, using aseptic technique. Blood collected. 19:38 XRAY Femur RIGHT In Process Unspecified. EDMS 19:42 US Extrmty Nonvasular Limited In Process Unspecified. EDMS 20:07 Rut Milian is Hospitalizing Provider. cp 20:30 Report received from GINNY Ortega. ha1 20:30 Patient has correct armband on for positive identification. Placed in gown. Bed in low ha1 position. Call light in reach. Side rails up X 1. 20:41 Charles Donato is Hospitalizing Provider. cp 22:59 Jasmin Reyna, GINNY is Primary Nurse. ha1 22:59 No provider procedures requiring assistance completed. Patient admitted, IV remains in ha1 place. bleeding controlled. 23:00 Provided Education on: need for admission. ha1 Administered Medications: 20:44 CANCELLED (Physician Discretion): LORazepam PO 2 mg PO once cp 20:50 Drug: Clindamycin IVPB 900 mg Route: IVPB; Infused Over: 30 mins; Site: right forearm; ha1 21:30 Follow up: Response: No adverse reaction; IV Status: Completed infusion; IV Intake: [id number] 20:58 Drug: LORazepam PO 1 mg Route: PO; ha1 21:30 Follow up: Response: No adverse reaction ha1 Medication: 23:01 VIS not applicable for this client. ha1 Intake: 21:30 IV: 50ml; Total: 50ml. ha1 Outcome: 20:08 Decision to Hospitalize by Provider. cp 22:59 Admitted to Tele accompanied by nurse, via wheelchair, room 426, with chart, Report ha1 called to GINNY Coelho 23:00 Condition: stable ha1 23:00 Discharge instructions given to patient, family, Instructed on the need for admit, Demonstrated understanding of instructions. 23:05 Patient left the ED. ha1 Signatures: Dispatcher [employer] EDMS Bill Rose PA PA Alice Sam RN GINNY Ayush Wheeler RN RN jl7 Jasmin Reyna RN RN 1 Isabel Graham, SANDY PAS ts1 Corrections: (The following items were deleted from the chart) 22:20 22:01 Reassessment: 1 ha1
[2022-09-13] MEDS ORDERED: VANCOMYCIN 1 GM in NA CHLORIDE 0.9% 250 ML IVPB SCH (20:18)
[2022-09-13] MEDS ORDERED: ONDANSETRON 4 MG/2 ML VIAL IV PRN (20:18)
[2022-09-13] MEDS ORDERED: TRAMADOL HCL 50 MG TAB PO PRN (20:18)
[2022-09-13] MEDS ORDERED: LORAZEPAM 1 MG TABLET PO PRN (20:43)
--- NOTE | 2022-09-13 20:43 | P.HP ---
Certification for Inpatient Patient admitted to: Observation With expected LOS: <2 Midnights Patient will require the following post-hospital care: None Practitioner: I am a practitioner with admitting privileges, knowledge of patient current condition, hospital course, and medical plan of care. Services: Services provided to patient in accordance with Admission requirements found in Title 42 Section 412.3 of the Code of Federal Regulations Patient History Date of Service: 09/13/22 Reason for admission: cellulitis/hematoma. History of Present Illness: 27-year-old male with no significant past medical history presents to the emergency room with cellulitis right lateral thigh. He reports started 2 months ago as a small abscess, patient tried to drain with a pin, abscess has gotten progressively worse. He reports initially started after 1 leg workouts, with a small hematoma 2 months ago. He reports mild right inguinal lymph node enlargement. He denies fever, chills, cough, shortness of breath, abdominal pain chest pain. Plan to admit for cellulitis right lateral thigh, for I&D, IV antibiotics. Laboratory evaluation WBCs elevated at 13, left shift 84.9, femur x-ray negative for fracture, ultrasound of the right leg positive for cellulitis/hematoma. Allergies No Known Allergies Allergy (Verified 06/22/20 18:17) Home Medications: Oxycodone HCl/Acetaminophen [Percocet 5/325 Tab*] 1 tab PO Q4H PRN 5 Days #15 tab 06/22/20 - Past Medical/Surgical History Diabetic: No - Social History Alcohol use: No CD- Drugs: No Caffeine use: Yes Review of Systems 10-point ROS is otherwise unremarkable Physical Examination - Physical Exam General: Alert, In no apparent distress, Oriented x3, Other (Mild anxiety) HEENT: Atraumatic, Normocephalic, PERRLA Neck: Supple, 2+ carotid pulse no bruit, JVD not distended Respiratory: Clear to auscultation bilaterally, Normal air movement, Diminished Cardiovascular: No edema, Normal pulses, Regular rate/rhythm Gastrointestinal: Normal bowel sounds, Soft and benign Musculoskeletal: No clubbing, No swelling, Other (Right lateral thigh cellulitis, abscess erythema, tender to touch, mild serosanguineous drainage.) Integumentary: Other (Moderate erythema with cellulitis right lateral thigh serosanguineous drainage) Neurological: Normal gait, Normal strength at 5/5 x4 extr, Sensation intact, Cranial nerves 3-12 intact Lymphatics: Other (Mild right inguinal lymph node enlargement) - Studies Laboratory Data (last 24 hrs) 09/13/22 09/13/22 19:07 19:07 WBC 13.00 H Hgb 13.9 Hct 42.8 Plt Count 343 Sodium 137 Potassium 3.7 BUN 16 Creatinine 1.15 Glucose 97 Assessment and Plan - Plan Assessment plan Cellulitis right lower extremity Assessment plan Surgical consult notified in the ED cellulitis right lateral thigh, for I&D, IV antibiotics. As needed analgesics, anxiety medications Laboratory evaluation WBCs elevated at 13, left shift 84.9, femur x-ray negative for fracture, ultrasound of the right leg positive for cellulitis/hematoma Diet regular, n.p.o. after midnight Full code DVT Lovenox Discharge Plan: Home Plan to discharge in: 24 Hours - Advance Directives Does patient have a Living Will: No Does patient have a Durable POA for Healthcare: No - Code Status/Comfort Care Code Status: Full Code Physician Review: Patient Assessed, Agree with Above Assessment and Plan Time Spent Managing Pts Care (In Minutes): 50
[2022-09-13] MEDS ORDERED: LORAZEPAM 1 MG TABLET ONE (20:59)
[2022-09-13] MEDS ORDERED: VANCOMYCIN 1.75 GM in NA CHLORIDE 0.9% 500 ML IVPB SCH ×2 (21:00→23:00)
[2022-09-13] MEDS ORDERED: CLINDAMYCIN 900MG/D5W 900 MG/50 ML IVPB IV ONE (21:00)
[2022-09-13] MEDS ORDERED: ENOXAPARIN 40 MG/0.4 ML SQ ONE (21:01)
[2022-09-13] MEDS: LACTOBACILLUS/ACIDOPHILUS TAB PO SCH (23:30)
[2022-09-13] MEDS ORDERED: VANCOMYCIN 1 GM/VIAL ONE (23:31)
[2022-09-13] MEDS ORDERED: NA CHLORIDE 0.9% 500 ML ONE (23:32)
[2022-09-13] MEDS: ZOLPIDEM TARTRATE 5 MG TABLET PO PRN (23:38)
[2022-09-14 00:09] VITALS: BMI 29.7
[2022-09-14 03:41] LABS: Absolute Lymphocytes (CBC) 1.1 K/uL (0.7-4.9); Hematocrit 39.6 % (39.6-49.0); Lymphocytes % 11.2 % (15.3-44.8); MCV 83.6 fL (80-100); MPV 7.9 fL (7.6-11.3); RBC Red Blood Cell Count 4.74 M/uL (4.33-5.43)
[2022-09-14 03:50] LABS: Potassium 3.9 mEq/L (3.5-5.1)
[2022-09-14] MEDS ORDERED: VANCOMYCIN 1 GM in NA CHLORIDE 0.9% 250 ML IVPB SCH (05:00)
[2022-09-14] MEDS ORDERED: KCL 20 MEQ/100 mL IVPB 20 MEQ/100 ML BAG IV ONE (08:00)
[2022-09-14] MEDS: LACTOBACILLUS/ACIDOPHILUS TAB PO SCH ×2 (09:00→21:15)
[2022-09-14] MEDS: VANCOMYCIN 1.5 GM in NA CHLORIDE 0.9% 500 ML IVPB SCH ×2 (11:27→23:03)
[2022-09-14] MEDS ORDERED: BUPIVACAINE 0.25% PF 30 ML VIAL ONE (11:38)
[2022-09-14] MEDS ORDERED: MIDAZOLAM HCL 2 MG/2 ML INJ ONE (11:40)
[2022-09-14] MEDS ORDERED: FENTANYL CITR 100 MCG/2 ML ONE (11:40)
[2022-09-14] MEDS ORDERED: propofoL 200 MG/20 ML VIAL IV ONE (11:40)
[2022-09-14] MEDS ORDERED: LIDOCAINE 1% MPF 5 ML VIAL ONE (11:40)
[2022-09-14] MEDS ORDERED: KETOROLAC 30 MG/ML INJ ONE (11:41)
[2022-09-14] MEDS ORDERED: ONDANSETRON 4 MG/2 ML VIAL ONE (11:41)
[2022-09-14] MEDS ORDERED: dexAMETHasone 10 MG/ML VIAL ONE (11:41)
[2022-09-14] MEDS ORDERED: Ringers Lactate 1,000 ML IV ONE (11:49)
--- NOTE | 2022-09-14 12:48 | CON ---
Date of Consultation: 09/14/2022 Brief History Of Present Illness: Patient is a 27-year-old male with the past medical history of rig ht testicular cancer, status post orchiectomy who presents to the hospital with worsening pain, swell ing, and tenderness to the right lateral thigh. This is the site of an injection site for a performa nce-enhancing medication. It continued to get worse and became ultimately infected in the area, tend erness and pain were associated and as such he came to the emergency room with the above-stated compl aints. He had significant redness, swelling, tenderness and drainage which became purulent. It was initially bloody and it became purulent shortly thereafter. He has not had similar episodes before i n the past. No sick contact. No recent travel. He has been placed on IV antibiotics during his adm ission to hospital with vancomycin. He had an elevation in his white blood cell count on admission, but feels significantly better at this point, but not resolution. Past Medical History: Significant for testicular cancer. Past Surgical History: Right orchiectomy approximately 2 years ago. Allergies: NO KNOWN DRUG ALLERGIES. Home Medications: Includes Percocet and performance-enhancing medication. Social History: He denies smoking, alcohol. A 10-point review of systems other than HPI, denies. Physical Examination: At the time of my examination: General: He is awake, alert, and oriented. Psychiatric: He is appropriate, conversive. HEENT: Normocephalic. Sclerae anicteric. Mucous membranes are moist. Oropharynx clear. Neck: Supple without JVD. Chest: Expansion and excursion. Cardiovascular: Regular rate and rhythm. Pulmonary: Clear to auscultation bilaterally. Abdomen: Soft. Extremities: Focused examination of right lower extremity, right lateral thigh along the iliotibial tract, there is an area of cellulitis, drainage, and purulent type material emanating from this area. There is surrounding induration and cellulitis extending approximately 15 cm area of cellulitis wit h a central necrosis of the skin in this area. Laboratory Data: Revealed white blood cell count initially of 13, hemoglobin was 13.9, hematocrit of 42.8, platelet count was 343, neutrophils 84%. Sodium 137, potassium 3.7, chloride 104, carbon diox charmaine 25, BUN 16, creatinine 1.15, glucose 97. He had an extremity ultrasound performed on 09/13, kvng vernon read as cellulitis of the right thigh, ill-defined fluid present in the superficial tissues of the right thigh, increased vascularity, likely represents cellulitis as well. He has a femur x-ray as well on 09/13, officially read as no fracture seen. No bony abnormality displayed. Assessment And Plan: This is a 27-year-old male who comes in with an abscess/cellulitis with necrosi s of the right lateral thigh. 1.IV fluid hydration. 2.Antibiotic coverage as described with vancomycin. 3.I have explained risks, benefits, and alternatives of an excisional debridement of necrotic tissue and drainage of abscess, including but not limited to, bleeding, infection, damage to surrounding ti ssues, nerve injury, need for further operation and procedures, ongoing wound care, patient could hav e blood clots, strokes, heart attacks, and other complications in the perioperative period related to anesthesia or surgical procedure. I have answered all their questions. The patient agrees to proce ed as indicated. MARCIA/ANGELINE Voice ID: [id number] Report ID: [id number]
--- NOTE | 2022-09-14 13:00 | P.OP ---
Preoperative diagnosis: RIGHT Thigh Abscess / Infected Hematoma Postoperative diagnosis: RIGHT Thigh Abscess / Infected Hematoma Primary procedure: Excisional Debridement of Necrotic Thigh Tissue Secondary procedure: Drainage of Multiloculated Abscesses Other procedure(s): Pulse Lavage Anesthesia: GETA + Local Estimated blood loss: 20cc Specimen: Cultures x 4, Debridement Tissue Findings: ~ 9cm x 5cm multiloculated abscess w/ necrosis to muscle fascia Complications: None Transferred to: Recovery Room Condition: Good
[2022-09-14] MEDS: HYDROMORPHONE HCL 1 MG/ML INJ ONE ×4 (13:08→13:27)
[2022-09-14 13:30] VITALS: O2SAT 96
--- NOTE | 2022-09-14 13:47 | OP ---
Date of Procedure: 09/14/2022 Surgeon: Garrett Saavedra MD, Preoperative Diagnosis: Right thigh abscess/infected hematoma. Postoperative Diagnosis: Right thigh abscess/infected hematoma. Procedure Performed: 1.Excisional debridement of necrotic thigh tissue. 2.Drainage of multiloculated abscess of the right thigh. 3.Pulse lavage of the cavity. Anesthesia: General endotracheal plus local with 0.25% Marcaine plus 20 mL. Specimen: Culture sent both aerobic and anaerobic speciation both superficial and deep planes and de bridement tissue. Findings: Approximately 9 cm x 5 cm multilocular abscess with necrosis extending to the muscle fasci a approximately 4-5 cm deep. Complications: None. The patient was transferred to the recovery room in good condition. Procedure In Detail: After informed consent was obtained, patient was brought to the operating room, prepped and draped in the usual sterile fashion. After adequate anesthesia was achieved, I made a c urvilinear incision circumferentially around the area of obvious necrosis with draining abscess to th e central portion of the mid right thigh near the iliotibial tract. I used electrocautery to dissect circumferentially down to encounter an abscess and abscess type material. This was cultured of both aerobic and anaerobic speciation at this point. This debridement tissue was then sent off for patho logic examination. I then digitized the area and found it to be multiloculated deeper abscess below the adipose plane extending up to the muscle fascia. A large cavity was appreciated in this area wit h infected hematoma. This was cultured, but once again for both aerobic and anaerobic speciation. A t this point, I marsupialized by opening up the adipose plane extending up to but not involving the m uscle fascia of the right thigh. After this area was opened approximately 9 cm in length, I irrigate d the area copiously, used a curette to remove all necrotic tissue in addition did a sharp debridemen t using Metzenbaum scissors and electrocautery. Hemostasis is easily achieved with electrocautery. At this point, I then pulse lavaged approximately 3 L with Betadine solution through the entire plane staying above the muscle fascial plane at this point and after the area was cleansed thoroughly, no additional hemostat was required. I then packed the wound with Vashe-soaked Kerlix and sterile dress ing placed over top. The patient tolerated the procedure without evidence of complication and transf erred to the PACU in good condition. All counts were correct at the end of the case. MARCIA/ANGELINE Voice ID: [id number] Report ID: [id number]
--- NOTE | 2022-09-14 14:38 | P.PN ---
Subjective Date of Service: 09/14/22 Chief Complaint: cellulitis/hematoma. Patient has no new complaint. He has been afebrile. Physical Examination - Vital Signs Temperature: 98.6 F Blood Pressure: 154/50 Pulse: 100 Respirations: 18 Pulse Ox (%): 95 - Physical Exam General: Alert, In no apparent distress, Oriented x3 HEENT: Mucous membr. moist/pink Neck: JVD not distended Respiratory: Clear to auscultation bilaterally, Normal air movement Cardiovascular: No edema, Regular rate/rhythm, Normal S1 S2 Gastrointestinal: Normal bowel sounds, Soft and benign, Non-distended, No tenderness Musculoskeletal: No swelling Integumentary: Other (Rounded area of erythema and induration on the posterior aspect of right thigh) Neurological: Normal speech, Normal strength at 5/5 x4 extr - Studies Laboratory Data (last 24 hrs) 09/13/22 09/13/22 19:07 19:07 WBC 13.00 H Hgb 13.9 Hct 42.8 Plt Count 343 Sodium 137 Potassium 3.7 BUN 16 Creatinine 1.15 Glucose 97 Assessment And Plan - Current Problems (Diagnosis) (1) Abscess of right thigh Current Visit: Yes Status: Acute - Plan Patient seen by general surgery Dr. Saavedra. Status post excisional debridement of necrotic thigh tissue and drainage of multiloculated abscess of the right thigh. Continue IV vancomycin. Oral Augmentin. Patient admitted to injecting a substance into the thigh. Pain management as needed. Local wound care per surgery.
[2022-09-14] MEDS: HYDROCODONE/APAP 5/325 MG TAB PO PRN ×2 (15:17→21:15)
[2022-09-14] MEDS: AMOX/K CLAV 875 MG TAB PO SCH (21:15)
[2022-09-14] MEDS: ZOLPIDEM TARTRATE 5 MG TABLET PO PRN (23:04)
[2022-09-15 03:30] LABS: Magnesium 2.3 mg/dL (1.6-2.4); Potassium 4.5 mEq/L (3.5-5.1)
[2022-09-15] MEDS: HYDROCODONE/APAP 5/325 MG TAB PO PRN ×2 (07:31→12:37)
[2022-09-15] MEDS: AMOX/K CLAV 875 MG TAB PO SCH (08:23)
[2022-09-15] MEDS: LACTOBACILLUS/ACIDOPHILUS TAB PO SCH (08:23)
[2022-09-15 10:48] VITALS: BP 163/72; TEMP 98.8
[2022-09-15] MEDS ORDERED: VANCOMYCIN 1.5 GM in NA CHLORIDE 0.9% 500 ML IVPB SCH (11:00)
[2022-09-15] MEDS ORDERED: MORPHINE 2 MG/ML SYR IV ONE (12:10)
--- NOTE | 2022-09-15 13:28 | P.DS ---
Admission Date: 09/13/22 Discharge Date: 09/15/22 Disposition: ROUTINE DISCHARGE Discharge Condition: FAIR Reason for Admission: cellulitis/hematoma. - Problems (1) Abscess of right thigh Current Visit: Yes Status: Acute Brief History of Present Illness: 27-year-old male with no significant past medical history presents to the emergency room with cellulitis right lateral thigh. He reported it started 2 months ago as a small abscess, patient tried to drain with a pin, abscess got progressively worse. He reports initially started after 1 leg workouts, with a small hematoma 2 months ago. Laboratory evaluation WBCs elevated at 13, left shift 84.9, femur x-ray negative for fracture, ultrasound of the right leg positive for cellulitis/hematoma. Patient admitted for further management. Hospital Course: Patient admitted to the medical floor and started on IV vancomycin and oral Augmentin Patient seen by general surgery Dr. Saavedra. Status post excisional debridement of necrotic thigh tissue and drainage of multiloculated abscess of the right thigh. Patient reviewed by Dr. Saavedra today and he is deemed stable for discharge. Patient admitted to injecting a substance into the thigh. He is discharged with oral Augmentin and oral doxycycline. He is informed to follow-up as outpatient with Dr. Saavedra. Vital Signs/Physical Exam: Temp Pulse Resp BP Pulse Ox 98.8 F 87 14 163/72 H 96 09/15/22 08:00 09/15/22 08:00 09/15/22 12:37 09/15/22 08:00 09/15/22 12:37 General: Alert, In no apparent distress, Oriented x3 HEENT: Mucous membr. moist/pink Neck: Supple, JVD not distended Respiratory: Clear to auscultation bilaterally, Normal air movement Cardiovascular: No edema, Regular rate/rhythm, Normal S1 S2 Gastrointestinal: Soft and benign, Non-distended Musculoskeletal: Other (Right I&D wound was dressed and wrapped with Deejay.) Neurological: Normal strength at 5/5 x4 extr Laboratory Data at Discharge: WBC 10.00 thou/uL (4.3-10.9) 09/14/22 02:52 Hgb 13.0 g/dL (13.6-17.9) L 09/14/22 02:52 Hct 39.6 % (39.6-49.0) 09/14/22 02:52 Plt Count 376 thou/uL (152-406) 09/14/22 02:52 Sodium 133 mEq/L (136-145) L D 09/15/22 03:00 Potassium 4.5 mEq/L (3.5-5.1) D 09/15/22 03:00 BUN 14 mg/dL (7-18) 09/15/22 03:00 Creatinine 1.10 mg/dL (0.70-1.30) 09/15/22 03:00 Glucose 154 mg/dL (74-106) H 09/15/22 03:00 Magnesium 2.3 mg/dL (1.6-2.4) 09/15/22 03:00 Home Medications: Amox/Clavulanate [Augmentin 875-125 Tab*] 875 mg PO BID #28 tab 09/15/22 Doxycycline Hyclate 100 mg PO BID #28 cap 09/15/22 New Medications: Amox/Clavulanate [Augmentin 875-125 Tab*] 875 mg PO BID #28 tab Doxycycline Hyclate 100 mg PO BID #28 cap Diet: Regular Activity: Ad alejandra Followup: Garrett Saavedra MD [ACTIVE - CAN ADMIT] - 1 Week Time spent managing pt's care (in minutes): 28
== END 2022-09-15 15:15 | disposition home or self-care (01) ==
LOC: ER 17:55 → ERHOLD 20:10 → 4TH 22:15
PROVIDERS: ADMIT Internal Medicine; ATTEND Internal Medicine
PROC: 0JBN0ZZ Excision of Right Lower Leg Subcutaneous Tissue and Fascia, Open Approach (ICD-10-PCS; principal; 2022-09-14 12:00)
DX: L03.115 Cellulitis of right lower limb (principal); L02.415 Cutaneous abscess of right lower limb; S70.11XA Contusion of right thigh, initial encounter; R59.0 Localized enlarged lymph nodes; I96 Gangrene, not elsewhere classified; Z85.47 Personal history of malignant neoplasm of testis; Z90.79 Acquired absence of other genital organ(s)
CPT/HCPCS: 96365; 87070 ×2; 85025 ×2; 80048 ×3; 36415 ×2; 83735 ×2; 87205 ×4; 87075 ×2; 80202; 73552; 76882; 99285; 11042; J2704; J2001; J2250; J3010; J1100; J2270; J1170 ×2; J2405; J7120; J7040 ×3; 88304

== ENCOUNTER 2023-12-19 12:51 | Emergency (ER) | payer BC ==
--- OUTSIDE RECORDS SUMMARY | 2023-12-19 12:54 | XMS REPORT | Clinical Summary ---
Author Name Unknown Organization [facility] Address [address] [place] [address] Care Team Providers Care Candy Department Manager Name Role Phone Jose Culver MD Unavailable [phone] Sarath Sullivan Unavailable Valarie Hernandez Unavailable [phone] Ramez Peter MD Unavailable [phone] Castillo Norris MD Primary Care Provider [phone] Allergies Active Allergy Reactions Criticality Noted Date Comments Clindamycin Rash Low 12/06/2022 Medications Medication Sig Dispensed Refills Start Date End Date Status cetirizine (ZyrTEC) 10 mg tabletIndication s:Germ cell tumor Take 1 tablet (10 mg) by mouth daily. 0 3 Active pantoprazole (PROTONIX) 40 mg EC tabletIndication s:Germ cell tumor Take 1 tablet (40 mg) by mouth 2 (two) times a day before meals. 30 tablet 1 3 Active Additional Information Patient taking differently:40 mg oralEvery morning before breakfast, Reason: Side effects, Informant: Self, Reported on 02/07/2023 multivitamin tab tablet Take 1 tablet by mouth daily. Active acetaminophen (TYLENOL) 500 mg tablet Take 2 tablets (1,000 mg) by mouth twice daily. Active ibuprofen (ADVIL,MOTRIN) 200 mg tablet Take 1 tablet (200 mg) by mouth twice daily. Active SantyL ointment Apply 1 application topically to affected area(s) daily. 3 12/28/19 Discontinued lidocaine (GLYDO, UROJET) 2% mucosal jelly with applicator Apply 5 mL (1 application ) topically to affected area(s) every 3 (three) hours as needed. 3 01/18/20 Discontinued sodium chloride-sodium bicarbonate (SALT AND SODA) mouthwashIndicat ions:mouth cleanser Instructions for making your own salt and soda mixture: 1. Mix 1 cup of table salt and 1 cup of baking soda in a large, dry, and clean container with a lid. 2. Shake well. Fill a squirt bottle with about 1 cup (240 mL) of warm water and add 1/2 (one-half) teaspoon of the salt and soda mixture. Shake until mixture dissolves well. Swish and spit 10 mL of this solution four times a day. 3 06/22/19 Discontinued dexAMETHasone (DECADRON) 4 mg tabletIndication s:prevention of chemotherapy-ind uced nausea and vomiting Take 1 tablet by mouth twice a day for 3 days after chemotherapy, then stop. 6 tablet 3 3 01/01/20 Discontinued(Reo rder) ondansetron (Zofran) 8 mg tabletIndication s:cancer chemotherapy-ind uced nausea and vomiting Take 1 tablet by mouth twice a day for 3 days after chemotherapy. Then, take 1 tablet every 8 hours as needed for nausea/vomiting. 30 tablet 2 3 01/01/20 Discontinued(Reo rder) prochlorperazine (Compazine) 10 mg tabletIndication s:Germ cell tumor Take 1 tablet (10 mg) by mouth every 6 (six) hours as needed for nausea or vomiting. May cause drowsiness. 30 tablet 2 3 06/12/19 24 Discontinued(The rapy completed) ciprofloxacin HCl (CIPRO) 750 mg tabletIndication s:Fever Take 1 tablet (750 mg) by mouth twice daily for 7 days. 14 tablet 3 12/26/19 23 amoxicillin-clav ulanate (Augmentin) 875 mg-125 mg per tabletIndication s:Fever Take 1 tablet (875 mg) by mouth twice daily for 7 days. 14 tablet 3 12/26/19 23 dexAMETHasone (DECADRON) 4 mg tabletIndication s:prevention of chemotherapy-ind uced nausea and vomiting Take 1 tablet by mouth twice a day for 3 days after chemotherapy, then stop. 6 tablet 3 3 02/12/20 23 Discontinued(Reo rder) ondansetron (ZOFRAN) 8 mg tabletIndication s:cancer chemotherapy-ind uced nausea and vomiting Take 1 tablet by mouth twice a day for 3 days after chemotherapy. Then, take 1 tablet every 8 hours as needed for nausea/vomiting. 30 tablet 2 3 02/12/20 23 Discontinued(Reo rder) baclofen (LIORESAL) 5 mg tab tabletIndication s:Germ cell tumor Take 1 tablet (5 mg) by mouth every 8 (eight) hours as needed for hiccups. 30 tablet 3 06/12/19 24 Discontinued(The rapy completed) dexAMETHasone (DECADRON) 4 mg tabletIndication s:prevention of chemotherapy-ind uced nausea and vomiting Take 1 tablet by mouth twice a day for 3 days after chemotherapy, then stop. 6 tablet 1 3 06/22/19 24 Discontinued ondansetron (ZOFRAN) 8 mg tabletIndication s:cancer chemotherapy-ind uced nausea and vomiting Take 1 tablet by mouth twice a day for 3 days after chemotherapy. Then, take 1 tablet every 8 hours as needed for nausea/vomiting. 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 Encounters Date Type Department Care Team Description 10/06/2023 Telephone [facility] - Oncology [address] [facility] [address] Garima Candelario RN 10/03/2023 1:00 PM CDT Follow-Up [facility] - Oncology [address] [place] [id number] Castillo Norris MD Germ cell tumor 10/03/2023 Travel 10/02/2023 1:30 PM CDT Ancillary Procedure PET Imaging [address] [place] [id number] Lola Kidd APRN Germ cell tumor 10/02/2023 11:45 AM CDT - 10/02/2023 11:59 PM CDT Hospital Encounter [facility] [address] [place] [id number] Lola Kidd APRN Germ cell tumor Discharge Disposition: Home 06/20/2023 2:00 PM CDT Telemedicine [facility] - Oncology [address] [place] [phone] Castillo Norris MD Germ cell tumor (Primary Dx) 06/19/2023 10:30 AM CDT Ancillary Procedure PET Imaging [address] [place] [address] Castillo Norris MD Germ cell tumor 06/19/2023 9:15 AM CDT - 06/19/2023 11:59 PM CDT Hospital Encounter [facility] [address] [place] [address] Castillo Norris MD Germ cell tumor Discharge Disposition: Home 03/21/2023 2:30 PM LUMBER SCALER Telemedicine [facility] Oncology [address] [place] [phone] Castillo Norris MD Germ cell tumor (Primary Dx) 03/20/2023 8:00 AM LUMBER SCALER - 03/20/2023 11:59 PM LUMBER SCALER Hospital Encounter [facility] [address] [place] [id number] Lola Kidd APRN Germ cell tumor Discharge Disposition: Home 03/20/2023 6:00 AM LUMBER SCALER Ancillary Procedure PET Imaging [address] [facility], 6th [place] [address] Lola Kidd APRN Germ cell tumor 02/26/2023 Orders Only [facility] - Oncology [address] [place] [address], 7th [place] [address] Lola Kidd APRN Germ cell tumor (Primary Dx) 02/07/2023 6:31 PM LUMBER SCALER - 02/12/2023 3:30 PM LUMBER SCALER Hospital Encounter MAIN [address] [place] [address] Castillo Norris MD Corn, Paul, MD Araujo, John, MD Germ cell tumor (Primary Dx) Discharge Disposition: Home 02/07/2023 9:30 AM LUMBER SCALER Follow-Up [facility] - Oncology [address] [place] [address], 7th [place] [address] Lola Kidd APRN Germ cell tumor 02/07/2023 8:15 AM LUMBER SCALER - 02/07/2023 6:30 PM LUMBER SCALER Hospital Encounter [facility] [address] [place] [address] Lola Kidd APRN Germ cell tumor Discharge Disposition: Home 02/07/2023 Travel 01/29/2023 10:00 AM LUMBER SCALER Telemedicine Clinical Genetics [address] [place] [address], 9th Floor, [place] [address] Valarie Hernandez PA Skefos, Catherine B Germ cell tumor 01/17/2023 5:31 PM LUMBER SCALER - 01/22/2023 2:34 PM LUMBER SCALER Hospital Encounter MAIN [address] [place] [address] Louis Trevino MD Wang, Jianbo, MD Germ cell tumor (Primary Dx); Encounter for chemotherapy Discharge Disposition: Home 01/17/2023 2:00 PM LUMBER SCALER Follow-Up [facility] - Oncology [address] [place] [address], 7th [place] [address] Castillo Norris MD Germ cell tumor 01/17/2023 Orders Only [facility] - Oncology [address] [place] [address], 7th [place] [address] Castillo Norris MD 01/17/2023 Orders Only [facility] - Oncology [address] [place] [address], 7th [place] [address] Alison Norris, PharmD 01/17/2023 Travel 01/16/2023 4:00 PM LUMBER SCALER Ancillary Procedure PET Imaging [address] [place] [address], 6th [place] [address] Annemarie Alvarenga [employer]ITCHER [employer] Germ cell tumor 01/16/2023 1:15 PM LUMBER SCALER - 01/16/2023 11:59 PM LUMBER SCALER Hospital Encounter [facility] [address] [place] [phone] Annemarie Alvarenga [employer] Germ cell tumor Discharge Disposition: Home 01/01/2023 Orders Only [facility] - Oncology [address] [place] [address], [address] [place] [address] Lola Kidd APRN 12/27/2022 5:31 PM LUMBER SCALER - 01/01/2023 2:43 PM LUMBER SCALER Hospital Encounter MAIN [address] [place] [address] Castillo Norris MD Alhalabi, Omar, MD Shah, Amishi Y, MD Germ cell tumor (Primary Dx) Discharge Disposition: Home 12/27/2022 11:00 AM LUMBER SCALER Follow-Up [facility] - Oncology [address] [place] [address], 7th [place] [address] Castillo Norris MD Germ cell tumor (Primary Dx); Encounter for preprocedural examination; Other mixed anxiety disorder; Elevation of levels of liver transaminase levels 12/27/2022 8:44 AM LUMBER SCALER - 12/27/2022 5:30 PM LUMBER SCALER Hospital Encounter [facility] [address] [place] [phone] Castillo Norris MD Germ cell tumor Discharge Disposition: Home 12/27/2022 Orders Only [facility] - Oncology [address] [place] [address], 7th [place] [address] Castillo Norris MD 12/27/2022 Travel 12/26/2022 2:20 PM LUMBER SCALER Consult Cardiopulmonary Center [address] [place] [address], 6th [place] [address] Ramez Peter MD Abnormal electrocardiogram (ECG) (EKG) (Primary Dx); Seminoma, 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> 12/26/2022 2:10 PM LUMBER SCALER - 12/26/2022 11:59 PM LUMBER SCALER Hospital Encounter Cardiopulmonary Center [address] [place] [address], 6th [place] [address] Ramez Peter MD Seminoma, 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 Psoriasis 2008 Palpitations 12/28/2022 Family History Medical History Relation Name Comments Prostate cancer Maternal Grandfather Lemuel Mata no m etastatic Relation Name Status Comments Brother 1 Alive Brother 2 Alive Father Alive Maternal Aunt 1 Alive Maternal Aunt 2 Alive Maternal Grandfather Lemuel Mata Alive Maternal Grandmother Alive Mother Alive Paternal Grandfather Paternal Grandmother Paternal Uncle Social History Tobacco Use Types Packs/Day Years Used Date Smoking Tobacco: Never Smokeless Tobacco: Never Tobacco Cessation:Counseling Given: Not Answered Alcohol Use Standard Drinks/Week Comments Not Currently 0 (1 standard drink = 0.6 oz pur e alcohol) Rare AUDIT-C Answer Date Recorded Q1: How often do you have a drink containing alcohol? Monthly or less 12/27/2022 Q2: How many drinks containi ng alcohol do you have on a typical day when you are drinking? Patient does not drink Q3: How often do you have si x or more drinks on one occasion? Less than monthly 12/27/2022 Sex and Gender Information Value Date Recorded Sex Assigned at Not on file Gender Identity Not on file Sexual Orientation Straight 01/08/2021 2: 31 PM LUMBER SCALER Job Start Date Occupation Industry Not on file Not on file Not on file Obstetrics History Last Filed Vital Signs Vital Sign Reading Time Taken Comments Blood Pressure 100/65 10/03/2023 12:44 PM CDT Pulse 84 10/03/2023 12:44 PM CDT Temperature 36.3 C (97.3 F) 10/03/2023 12:44 PM C DT Respiratory Rate 18 10/03/2023 12:44 PM CDT Oxygen Saturation 98% 10/03/2023 12:44 PM CDT Inhaled Oxygen Concentration - - Weight 96.7 kg (213 lb 3 oz) 10/03/2023 12:40 PM CDT Height 183 cm (6' 0.05") 10/03/2023 12:40 PM CDT Body Mass Index 28.88 10/03/2023 12:40 PM CDT Plan of Treatment Upcoming Encounters Date Type Department Care Team (Late st Contact Info) Description 01/01/2024 9:15 AM LUMBER SCALER Appointment Diagnostic Laboratory Center [facility] [place] [address] Castillo Norris MD [address] [place] [id number] [email or web address] 01/01/2024 10:00 AM LUMBER SCALER Ancillary Procedure PET Imaging [facility], 6th [place] [address] Castillo Norris MD [address] [place] [id number] [email or web address] 01/02/2024 10:00 AM LUMBER SCALER Follow-Up [facility] - Oncology [address] [facility], 7th [place] [address] Castillo Norris MD [address] [place] [address] [email or web address] Maintenance Due Date Last Done Comments COVID-19 Vaccine (#1) 2002 Influenza Vaccine (#1) 2023 Pneumococcal Vaccine: Pediat rics (0 to 5 Years) and At-Risk Patients (6 to 64 Years) Aged Out No longer eligi ble based on patient's age to complete this topic Procedures Procedure Name Priority Date/Time Associated Diagnosis Comments PETCT F18 FDG (FLUORODEOXYGLUCOSE) WITH CONTRAST Routine 10/02/2023 3:43 PM CDT Germ cell tumor .CBC Routine 10/02/2023 12:53 PM CDT Germ cell tumor LACTATE DEHYDROGENASE Routine 10/02/2023 12:53 PM CDT Germ cell tumor COMPREHENSIVE METABOLIC PANEL Routine 10/02/2023 12:53 PM CDT Germ cell tumor COMPLETE BLOOD COUNT W/ DIFFERENTIAL Routine 10/02/2023 12:53 PM CDT Germ cell tumor TESTOSTERONE LEVEL Routine 10/02/2023 12 :53 PM CDT Germ cell tumor HC BETA HCG TUMOR MARKER (BHCG T) Routine 10/02/2023 12:53 PM CDT Germ cell tumor ALPHA FETOPROTEIN TUMOR MARKER Routine 10/02/2023 12:53 PM CDT Germ cell tumor PETCT F18 FDG (FLUORODEOXYGLUCOSE) WITH CONTRAST Routine 06/19/2023 11:17 AM CDT Germ cell tumor POC CREATININE Routine 06/19/2023 9:53 AM CDT .CBC Routine 06/19/2023 9:32 AM CDT Germ cell tumor LACTATE DEHYDROGENASE Routine 06/19/2023 9:32 AM CDT Germ cell tumor HC BETA HCG TUMOR MARKER (BHCG T) Routine 06/19/2023 9:32 AM CDT Germ cell tumor ALPHA FETOPROTEIN TUMOR MARKER Routine 06/19/2023 9:32 AM CDT Germ cell tumor COMPREHENSIVE METABOLIC PANEL Routine 06/19/2023 9:32 AM CDT Germ cell tumor COMPLETE BLOOD COUNT W/ DIFFERENTIAL Routine 06/19/2023 9:32 AM CDT Germ cell tumor .CBC Routine 03/20/2023 8:29 AM LUMBER SCALER Germ cell tumor LACTATE DEHYDROGENASE Routine 03/20/2023 8:29 AM LUMBER SCALER Germ cell tumor COMPREHENSIVE METABOLIC PANEL Routine 03/20/2023 8:29 AM LUMBER SCALER Germ cell tumor COMPLETE BLOOD COUNT W/ DIFFERENTIAL Routine 03/20/2023 8:29 AM LUMBER SCALER Germ cell tumor TESTOSTERONE LEVEL Routine 03/20/2023 8: 29 AM LUMBER SCALER Germ cell tumor HC BETA HCG TUMOR MARKER (BHCG T) Routine 03/20/2023 8:29 AM LUMBER SCALER Germ cell tumor ALPHA FETOPROTEIN TUMOR MARKER Routine 03/20/2023 8:29 AM LUMBER SCALER Germ cell tumor MAGNESIUM LEVEL Routine 03/20/2023 8:29 AM LUMBER SCALER Germ cell tumor PETCT F18 FDG (FLUORODEOXYGLUCOSE) WITH CONTRAST Routine 03/20/2023 8:08 AM LUMBER SCALER Germ cell tumor POC CREATININE Routine 03/20/2023 6:15 AM LUMBER SCALER PHOSPHORUS LEVEL Routine 02/12/2023 2:54 AM LUMBER SCALER MAGNESIUM LEVEL Routine 02/12/2023 2:54 AM LUMBER SCALER GLUCOSE, RANDOM Routine 02/12/2023 2:54 AM LUMBER SCALER CREATININE Routine 02/12/2023 2:54 AM LUMBER SCALER ELECTROLYTE PANEL Routine 02/12/2023 2:5 4 AM LUMBER SCALER PHOSPHORUS LEVEL Routine 02/11/2023 1:52 AM LUMBER SCALER MAGNESIUM LEVEL Routine 02/11/2023 1:52 AM LUMBER SCALER GLUCOSE, RANDOM Routine 02/11/2023 1:52 AM LUMBER SCALER CREATININE Routine 02/11/2023 1:52 AM LUMBER SCALER BLOOD UREA NITROGEN Routine 02/11/2023 1 :52 AM LUMBER SCALER ELECTROLYTE PANEL Routine 02/11/2023 1:5 2 AM LUMBER SCALER PHOSPHORUS LEVEL Routine 02/10/2023 3:11 AM LUMBER SCALER MAGNESIUM LEVEL Routine 02/10/2023 3:11 AM LUMBER SCALER GLUCOSE, RANDOM Routine 02/10/2023 3:11 AM LUMBER SCALER CREATININE Routine 02/10/2023 3:11 AM LUMBER SCALER BLOOD UREA NITROGEN Routine 02/10/2023 3 :11 AM LUMBER SCALER ELECTROLYTE PANEL Routine 02/10/2023 3:1 1 AM LUMBER SCALER PHOSPHORUS LEVEL Routine 02/09/2023 6:53 AM LUMBER SCALER MAGNESIUM LEVEL Routine 02/09/2023 6:53 AM LUMBER SCALER GLUCOSE, RANDOM Routine 02/09/2023 6:53 AM LUMBER SCALER CREATININE Routine 02/09/2023 6:53 AM LUMBER SCALER BLOOD UREA NITROGEN Routine 02/09/2023 6 :53 AM LUMBER SCALER ELECTROLYTE PANEL Routine 02/09/2023 6:5 3 AM LUMBER SCALER PHOSPHORUS LEVEL Routine 02/08/2023 6:09 AM LUMBER SCALER MAGNESIUM LEVEL Routine 02/08/2023 6:09 AM LUMBER SCALER GLUCOSE, RANDOM Routine 02/08/2023 6:09 AM LUMBER SCALER CREATININE Routine 02/08/2023 6:09 AM LUMBER SCALER BLOOD UREA NITROGEN Routine 02/08/2023 6 :09 AM LUMBER SCALER ELECTROLYTE PANEL Routine 02/08/2023 6:0 9 AM LUMBER SCALER .CBC Routine 02/07/2023 10:17 AM LUMBER SCALER Germ cell tumor LACTATE DEHYDROGENASE Routine 02/07/2023 10:17 AM LUMBER SCALER Germ cell tumor COMPREHENSIVE METABOLIC PANEL Routine 02/07/2023 10:17 AM LUMBER SCALER Germ cell tumor COMPLETE BLOOD COUNT W/ DIFFERENTIAL Routine 02/07/2023 10:17 AM LUMBER SCALER Germ cell tumor TESTOSTERONE LEVEL Routine 02/07/2023 10 :17 AM LUMBER SCALER Germ cell tumor HC BETA HCG TUMOR MARKER (BHCG T) Routine 02/07/2023 10:17 AM LUMBER SCALER Germ cell tumor ALPHA FETOPROTEIN TUMOR MARKER Routine 02/07/2023 10:17 AM LUMBER SCALER Germ cell tumor MAGNESIUM LEVEL Routine 02/07/2023 10:17 AM LUMBER SCALER Germ cell tumor POC GLUCOSE SCREEN Routine 01/22/2023 10 :10 AM LUMBER SCALER .CBC STAT 01/22/2023 9:55 AM LUMBER SCALER COMPLETE BLOOD COUNT W/ DIFFERENTIAL STAT 01/22/2023 9:55 AM LUMBER SCALER PHOSPHORUS LEVEL Routine 01/22/2023 4:24 AM LUMBER SCALER MAGNESIUM LEVEL Routine 01/22/2023 4:24 AM LUMBER SCALER GLUCOSE, RANDOM Routine 01/22/2023 4:24 AM LUMBER SCALER CREATININE Routine 01/22/2023 4:24 AM LUMBER SCALER BLOOD UREA NITROGEN Routine 01/22/2023 4 :24 AM LUMBER SCALER ELECTROLYTE PANEL Routine 01/22/2023 4:2 4 AM LUMBER SCALER POC GLUCOSE SCREEN Routine 01/21/2023 5: 32 PM LUMBER SCALER POC GLUCOSE SCREEN Routine 01/21/2023 8: 26 AM LUMBER SCALER HEPATIC FUNCTION PANEL Routine 2:40 AM LUMBER SCALER PHOSPHORUS LEVEL Routine 01/21/2023 2:40 AM LUMBER SCALER MAGNESIUM LEVEL Routine 01/21/2023 2:40 AM LUMBER SCALER GLUCOSE, RANDOM Routine 01/21/2023 2:40 AM LUMBER SCALER CREATININE Routine 01/21/2023 2:40 AM LUMBER SCALER BLOOD UREA NITROGEN Routine 01/21/2023 2 :40 AM LUMBER SCALER ELECTROLYTE PANEL Routine 01/21/2023 2:4 0 AM LUMBER SCALER POC GLUCOSE SCREEN Routine 01/20/2023 10 :22 PM LUMBER SCALER POC GLUCOSE SCREEN Routine 01/20/2023 6: 21 PM LUMBER SCALER POC GLUCOSE SCREEN Routine 01/20/2023 2: 10 PM LUMBER SCALER POC GLUCOSE SCREEN Routine 01/20/2023 8: 23 AM LUMBER SCALER HEMOGLOBIN A1C Routine 01/20/2023 4:04 AM LUMBER SCALER HEPATIC FUNCTION PANEL Routine 4:04 AM LUMBER SCALER PHOSPHORUS LEVEL Routine 01/20/2023 4:04 AM LUMBER SCALER MAGNESIUM LEVEL Routine 01/20/2023 4:04 AM LUMBER SCALER GLUCOSE, RANDOM Routine 01/20/2023 4:04 AM LUMBER SCALER CREATININE Routine 01/20/2023 4:04 AM LUMBER SCALER BLOOD UREA NITROGEN Routine 01/20/2023 4 :04 AM LUMBER SCALER ELECTROLYTE PANEL Routine 01/20/2023 4:0 4 AM LUMBER SCALER POC GLUCOSE SCREEN Routine 01/19/2023 10 :17 PM LUMBER SCALER POC GLUCOSE SCREEN Routine 01/19/2023 5: 12 PM LUMBER SCALER POC GLUCOSE SCREEN Routine 01/19/2023 8: 45 AM LUMBER SCALER HEPATIC FUNCTION PANEL Routine 7:01 AM LUMBER SCALER PHOSPHORUS LEVEL Routine 01/19/2023 7:01 AM LUMBER SCALER MAGNESIUM LEVEL Routine 01/19/2023 7:01 AM LUMBER SCALER GLUCOSE, RANDOM Routine 01/19/2023 7:01 AM LUMBER SCALER CREATININE Routine 01/19/2023 7:01 AM LUMBER SCALER BLOOD UREA NITROGEN Routine 01/19/2023 7 :01 AM LUMBER SCALER ELECTROLYTE PANEL Routine 01/19/2023 7:0 1 AM LUMBER SCALER HEPATIC FUNCTION PANEL Routine 7:53 AM LUMBER SCALER PHOSPHORUS LEVEL Routine 01/18/2023 7:53 AM LUMBER SCALER MAGNESIUM LEVEL Routine 01/18/2023 7:53 AM LUMBER SCALER GLUCOSE, RANDOM Routine 01/18/2023 7:53 AM LUMBER SCALER CREATININE Routine 01/18/2023 7:53 AM LUMBER SCALER BLOOD UREA NITROGEN Routine 01/18/2023 7 :53 AM LUMBER SCALER ELECTROLYTE PANEL Routine 01/18/2023 7:5 3 AM LUMBER SCALER PETCT F18 FDG (FLUORODEOXYGLUCOSE) WITH CONTRAST Routine 01/16/2023 4:50 PM LUMBER SCALER Germ cell tumor .CBC Routine 01/16/2023 2:19 PM LUMBER SCALER Germ cell tumor HC BETA HCG TUMOR MARKER (BHCG T) Routine 01/16/2023 2:19 PM LUMBER SCALER Germ cell tumor ALPHA FETOPROTEIN TUMOR MARKER Routine 01/16/2023 2:19 PM LUMBER SCALER Germ cell tumor PHOSPHORUS LEVEL Routine 01/16/2023 2:19 PM LUMBER SCALER Germ cell tumor MAGNESIUM LEVEL Routine 01/16/2023 2:19 PM LUMBER SCALER Germ cell tumor LACTATE DEHYDROGENASE Routine 01/16/2023 2:19 PM LUMBER SCALER Germ cell tumor COMPREHENSIVE METABOLIC PANEL Routine 01/16/2023 2:19 PM LUMBER SCALER Germ cell tumor COMPLETE BLOOD COUNT W/ DIFFERENTIAL Routine 01/16/2023 2:19 PM LUMBER SCALER Germ cell tumor PHOSPHORUS LEVEL Routine 01/01/2023 4:28 AM LUMBER SCALER MAGNESIUM LEVEL Routine 01/01/2023 4:28 AM LUMBER SCALER GLUCOSE, RANDOM Routine 01/01/2023 4:28 AM LUMBER SCALER CREATININE Routine 01/01/2023 4:28 AM LUMBER SCALER BLOOD UREA NITROGEN Routine 01/01/2023 4 :28 AM LUMBER SCALER ELECTROLYTE PANEL Routine 01/01/2023 4:2 8 AM LUMBER SCALER .CBC Routine 12/31/2022 4:44 AM LUMBER SCALER HEPATIC FUNCTION PANEL Routine 4:44 AM LUMBER SCALER PHOSPHORUS LEVEL Routine 12/31/2022 4:44 AM LUMBER SCALER MAGNESIUM LEVEL Routine 12/31/2022 4:44 AM LUMBER SCALER GLUCOSE, RANDOM Routine 12/31/2022 4:44 AM LUMBER SCALER CREATININE Routine 12/31/2022 4:44 AM LUMBER SCALER BLOOD UREA NITROGEN Routine 12/31/2022 4 :44 AM LUMBER SCALER ELECTROLYTE PANEL Routine 12/31/2022 4:4 4 AM LUMBER SCALER TYPE AND SCREEN Routine 12/31/2022 4:44 AM LUMBER SCALER COMPLETE BLOOD COUNT W/ DIFFERENTIAL Routine 12/31/2022 4:44 AM LUMBER SCALER ECHOCARDIOGRAM 2D COMPLETE Routine 12/30/2022 12:32 PM LUMBER SCALER PHOSPHORUS LEVEL Routine 12/30/2022 5:31 AM LUMBER SCALER MAGNESIUM LEVEL Routine 12/30/2022 5:31 AM LUMBER SCALER GLUCOSE, RANDOM Routine 12/30/2022 5:31 AM LUMBER SCALER CREATININE Routine 12/30/2022 5:31 AM LUMBER SCALER BLOOD UREA NITROGEN Routine 12/30/2022 5 :31 AM LUMBER SCALER ELECTROLYTE PANEL Routine 12/30/2022 5:3 1 AM LUMBER SCALER PHOSPHORUS LEVEL Routine 12/29/2022 7:20 AM LUMBER SCALER MAGNESIUM LEVEL Routine 12/29/2022 7:20 AM LUMBER SCALER GLUCOSE, RANDOM Routine 12/29/2022 7:20 AM LUMBER SCALER CREATININE Routine 12/29/2022 7:20 AM LUMBER SCALER BLOOD UREA NITROGEN Routine 12/29/2022 7 :20 AM LUMBER SCALER ELECTROLYTE PANEL Routine 12/29/2022 7:2 0 AM LUMBER SCALER PHOSPHORUS LEVEL Routine 12/28/2022 7:12 AM LUMBER SCALER MAGNESIUM LEVEL Routine 12/28/2022 7:12 AM LUMBER SCALER GLUCOSE, RANDOM Routine 12/28/2022 7:12 AM LUMBER SCALER CREATININE Routine 12/28/2022 7:12 AM LUMBER SCALER BLOOD UREA NITROGEN Routine 12/28/2022 7 :12 AM LUMBER SCALER ELECTROLYTE PANEL Routine 12/28/2022 7:1 2 AM LUMBER SCALER EKG, 12-LEAD (PORTABLE) Routine 12/28/2022 .CBC Routine 12/27/2022 8:54 AM LUMBER SC[employer]ER Germ cell tumor LACTATE DEHYDROGENASE Routine 12/27/2022 8:54 AM LUMBER SCALER Germ cell tumor HC BETA HCG TUMOR MARKER (BHCG T) Routine 12/27/2022 8:54 AM LUMBER SCALER Germ cell tumor ALPHA FETOPROTEIN TUMOR MARKER Routine 12/27/2022 8:54 AM [employer]UMBER SCALER Germ cell tumor COMPREHENSIVE METABOLIC PANEL Routine 12/27/2022 8:54 AM [facility] Germ cell tumor COMPLETE BLOOD COUNT W/ DIFFERENTIAL Routine 12/27/2022 8:54 AM [facility] Germ cell tumor EKG, 12-LEAD (SCHEDULED) Routine 12/26/2022 Seminoma, 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 Anatomical Region Laterality Modality Whole Body Positron Emissio n Tomography (PET) 10/03/2023 2:39 PM CDT Impressions 10/03/2023 3:04 PM CDT No FDG avid metastatic disease. ACTIONABLE ITEMS/RECOMMENDATIONS*: None. *An Actionable Finding is a finding that may be unrelated to the original reason for imaging but potentially actionable, meaning further investigation may be necessary. The Actionable Findings Vigilance Unit (AFVU) assists medical providers with responding to additional radiologic findings that are unexpected and potentially actionable. 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 Comparison: PET/CT on 06/19/2023 Technique: F-18 fluorodeoxyglucose 7.4 mCi was administered intravenously via left antecubital fossa. To allow for distribution and uptake of radiotracer, the patient was asked to rest quietly for approximately 60-90 minutes. PET/CT imaging was performed from the skull vertex to the knees. CT scanning was done for attenuation correction, image registration, and diagnosis with scan parameters optimized to minimize radiation exposure to the patient. The CT portion of the examination was performed with intravenous contrast. SUV measurements are reported as maximum SUV based on body weight unless otherwise specified. Findings: Head and Neck: No abnormal FDG uptake within head and neck. Opacification of the left maxillary sinus, and mucus retention cyst of right maxillary sinus otherwise clear paranasal sinuses. No FDG avid cervical lymphadenopathy. Chest: No suspicious or FDG avid pulmonary nodule. No pleural effusion or consolidation. Normal heart size. No pericardial effusion. No FDG avid thoracic lymphadenopathy. Abdomen and Pelvis: No focal abnormal FDG uptake within the liver, spleen, pancreas or adrenal mass. No splenomegaly. Physiologic uptake within gastrointestinal and genitourinary tract. No hydronephrosis. No FDG avid abdominal, pelvic or inguinal lymphadenopathy. Musculoskeletal: No suspicious lytic, sclerotic or FDG avid osseous metastases. Persistent linear FDG uptake within the right lateral thigh muscle (image [id number]) with SUV max of 8.8 compared to 6.9 previously likely inflammatory process. 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 Comparison: PET/CT on 06/19/2023 Technique: F-18 fluorodeoxyglucose 7.4 mCi was administered intravenously via leftantecubital fossa. To allow for distribution and uptake of radiotracer,the patient was asked to rest quietly for approximately 60-90 minutes.PET/CT imaging was performed from the skull vertex to the knees. CTscanning was done for attenuation correction, image registration, anddiagnosis with scan parameters optimized to minimize radiation exposure tothe patient. The CT portion of the examination was performed withintravenous contrast. SUV measurements are reported as maximum SUV basedon body weight unless otherwise specified. Findings: Head and Neck: No abnormal FDG uptake within head and neck. Opacification of the leftmaxillary sinus, and mucus retention cyst of right maxillary sinusotherwise clear paranasal sinuses. No FDG avid cervical lymphadenopathy. Chest: No suspicious or FDG avid pulmonary nodule. No pleural effusion orconsolidation. Normal heart size. No pericardial effusion. No FDG avid thoracic lymphadenopathy. Abdomen and Pelvis: No focal abnormal FDG uptake within the liver, spleen, pancreas or adrenalmass. No splenomegaly. Physiologic uptake within gastrointestinal andgenitourinary tract. No hydronephrosis. No FDG avid abdominal, pelvic or inguinal lymphadenopathy. Musculoskeletal: No suspicious lytic, sclerotic or FDG avid osseous metastases. Persistent linear FDG uptake within the right lateral thigh muscle ([id number]) with SUV max of 8.8 compared to 6.9 previously likely inflammatoryprocess. IMPRESSION: No FDG avid metastatic disease. ACTIONABLE ITEMS/RECOMMENDATIONS*: None. *An Actionable Finding is a finding that may be unrelated to the originalreason for imaging but potentially actionable, meaning furtherinvestigation may be necessary. The Actionable Findings Vigilance Unit(AFVU) assists medical providers with responding to additional radiologicfindings that are unexpected and potentially actionable. Lola Kidd APRN IMG PETCT ORDERABLES * BHCG, Tumor Marker (10/02/2023 12:53 PM CDT) Only the most recent of6 resultswithin the time period is included. Beta HCG-Tumor Marker <0.6 <=1.9 mIU/mL 10/02/2023 2:00 PM T [facility] Blood Peripheral blood specimen / Unknown Venipuncture / Unknown 10/02/2023 12:53 PM CDT 10/02/2023 12:55 PM CDT Narrative [facility] - 10/02/2023 2:00 PM CDT Tumor Markers BHCG Reference Range Female: Negative: < 1.0 mIU/mL Non-: </= 1.0 mIU/mL Post-menopausal women: </= 7.0 mIU/mL Male: < 2.0 mIU/mL Lola Kidd APRN LAB BLOOD ORDERABLES [facility] [address] [place] [address] * (ABNORMAL) .CBC (10/02/2023 12:53 PM [facility]) Only the most recent of8 resultswithin the time period is included. White Blood Cell 7.2 4.1 - 10.5 K/uL 10/02/2023 12:59 PM [facility] Red Blood Cell 5.39 4.30 - 6.04 M/uL 10/02/2023 12:59 PM [facility] Hemoglobin 15.8 13.3 - 17.4 g/dL 10/02/2023 12:59 PM [facility] Hematocrit 47.4 39.5 - 51.8 % 10/02/2023 12:59 PM [facility] Mean Cell Volume 88 82 - 99 fL 10/02/2023 12:59 PM [facility] Mean Cell Hemoglobin 29.3 26.6 - 33.2 pg 10/02/2023 12:59 PM [facility] Mean Cell Hemoglobin Concentration 33.3 31.1 - 35.2 g/dL 10/02/2023 12:59 PM [facility] RDW-SD 43.2 37.5 - 49.7 fL 10/02/2023 12:59 PM [facility] Red Cell Diameter Width 13.6 11.6 - 15.5 % 10/02/2023 12:59 PM [facility] Platelet 241 160 - 397 K/uL 10/02/2023 12:59 PM [facility] Mean Platelet Volume 9.5 9.1 - 12.6 fL 10/02/2023 12:59 PM [facility] INRBC 0.0 0.0 - 0.1 /100 WBC 10/02/2023 12:59 PM [facility] Comment: The INRBC (instrument NRBC) value reflects the enumeration of nucleated red blood cells contained in a 200uL sample of whole blood analyzed by the instrument. This value may differ from the NRBC value reported in a manual differential, which is based on a 100 cell differential. Neutrophil % 80.1(H) 43.2 - 72.7 % 10/02/2023 12:59 PM CDT [facility] Lymphocyte % 12.2(L) 16.8 - 46.2 % 10/02/2023 12:59 PM CDT [facility] Monocyte % 6.2 5.1 - 12.5 % 10/02/2023 12:59 PM CDT [facility] Eosinophil % 0.8 0.4 - 6.3 % 10/02/2023 12:59 PM CDT [facility] Basophil % 0.4 0.2 - 1.4 % 10/02/2023 12:59 PM CDT [facility] IGRE % 0.3 0.1 - 1.5 % 10/02/2023 12:59 PM T [facility] Comment:The IGRE% includes M etamyelocytes, Myelocytes and Promyelocytes. Neutrophil Abs 5.77 1.95 - 7.25 K/uL 10/02/2023 12:59 PM CDT [facility] Lymphocyte Abs 0.88(L) 1.01 - 3.24 K/uL 10/02/2023 12:59 PM CDT [facility] Monocyte Abs 0.45 0.24 - 0.85 K/uL 10/02/2023 12:59 PM CDT [facility] Eosinophil Abs 0.06 0.02 - 0.50 K/uL 10/02/2023 12:59 PM CDT [facility] Basophil Abs 0.03 0.02 - 0.09 K/uL 10/02/2023 12:59 PM CDT [facility] IG Abs 0.02 0.01 - 0.12 K/uL 10/02/2023 12:59 PM T [facility] Blood Peripheral blood specimen / Unknown Venipuncture / Unknown 10/02/2023 12:53 PM CDT 10/02/2023 12:55 PM CDT Lola Kidd APRN LAB BLOOD ORDERABLES [facility] [address] [place] [address] * (ABNORMAL) Comprehensive Metabolic Panel (10/02/2023 12:53 PM CDT) Only the most recent of6 resultswithin the time period is included. Bilirubin Total 0.5 0.0 - 1.2 mg/dL 10/02/2023 1:46 PM T [facility] Comment:Indocyanine Green (I CG) may cause falsely elevated bilirubin results. Total and direct bilirubin must not be measured from samples containing indocyanine green. False elevation of total bilirubin can be seen in patients with IgG concentrations above 28 g/L. eGFR 106 >=60 mL/min/1. 73 sq. m 10/02/2023 1:46 PM T [facility] Comment: The eGFRcr is calculated with the 2020 CKD-EPI creatinine equation using creatinine, patient's age, and sex for adults 18 years of age and older. Other factors, especially muscle mass, may affect accuracy and need to be considered. According to the Kidney Disease: Improving Global Outcomes (KDIGO) CKD Work Group 2012 Clinical Practice Guideline, chronic kidney disease (CKD) is defined as the abnormalities of kidney structure or function, present for more than 3 months, with implications for health. CKD should be classified by cause, GFR category, and albuminuria category. KDIGO guidelines provide the following GFR categories. Stage / Description / GFR mL/min/1.73 m2: G1* / Normal or high / >= 90 G2* / Mildly decreased / 60-89 G3a / Mildly to moderately decreased / 45-59 G3b / Moderately to severely decreased / 30-44 G4 / Severely decreased / 15-29 G5 / Kidney failure / <15 *In the absence of evidence of kidney damage, neither G1 nor G2 fulfill criteria for CKD. Tot Protein 7.0 6.4 - 8.3 gm/dL 10/02/2023 1:46 PM CDT [facility] Calcium Level Total 9.4 8.2 - 10.2 mg/dL 10/02/2023 1:46 PM CDT [facility] Alkaline Phosphatase 61 40 - 129 U/L 10/02/2023 1:46 PM CDT [facility] Albumin Level 4.3 3.5 - 5.2 gm/dL 10/02/2023 1:46 PM T [facility] AST 89(H) <=40 U/L 10/02/2023 1:46 PM CDT [facility] ALT 67(H) <=41 U/L 10/02/2023 1:46 PM CDT [facility] Sodium Level 136 136 - 145 mmol/L 10/02/2023 1:46 PM CDT [facility] Potassium Level 4.6(H) 3.4 - 4.5 mmol/L 10/02/2023 1:46 PM T [facility] Chloride 102 98 - 107 mmol/L 10/02/2023 1:46 PM CDT [facility] CO2 25 22 - 29 mmol/L 10/02/2023 1:46 PM T [facility] Anion Gap 9 4 - 14 mmol/L 10/02/2023 1:46 PM T [facility] Creatinine 1.00 0.67 - 1.17 mg/dL 10/02/2023 1:46 PM T [facility] BUN 16 6 - 23 mg/dL 10/02/2023 1:46 PM T [facility] Glucose Level 95 70 - 99 mg/dL 10/02/2023 1:46 PM T [facility] Comment: Effective 09/13/15, the glucose reference intervals have been updated based on [place] [employer] guidelines (Standards of Medical Care in Diabetes 2016. Diabetes Care 2016; 39: S13-S22). Fasting blood glucose: Normal: 70-99 mg/dL Impaired fasting glucose (increased risk for diabetes or pre-diabetes): 100-125 mg/dL Diabetes mellitus: >/=126 mg/dL Random blood glucose: Normal: 70-199 mg/dL Note: Random glucose >100 mg/dL is associated with increased risk for diabetes. Blood Peripheral blood specimen / Unknown Venipuncture / Unknown 10/02/2023 12:53 PM CDT 10/02/2023 12:55 PM CDT Lola Kidd APRN LAB BLOOD ORDERABLES [facility] [address] [place] [address] * AFP (10/02/2023 12:53 PM CDT) Only the most recent of6 resultswithin the time period is included. Alpha Fetoprotein (AFP) Tumor Marker <2.7 <=8.3 ng/mL 10/02/2023 2:00 PM CDT [facility] Blood Peripheral blood specimen / Unknown Venipuncture / Unknown 10/02/2023 12:53 PM CDT 10/02/2023 12:55 PM CDT Narrative [facility] - 10/02/2023 2:00 PM CDT Results greater than 45,875.00 ng/mL may not be reliable due to matrix effect with extended dilution as it exceeds the film maker's recommended limit. Caution should be exercised when interpreting such values and done in conjunction with clinical context. This test is measured by electrochemiluminescence immunoassay on [employer] immunoassay analyzers. Results obtained in different methods are not interchangeable. Lola Kidd APRN LAB BLOOD ORDERABLES [facility] [address] [place] [address] * Testosterone Level (10/02/2023 12:53 PM CDT) Only the most recent of3 resultswithin the time period is included. Pathologist [facility] Testosterone Total 276 249 - 836 ng/dL 10/02/2023 2:15 PM CDT [facility] Blood Peripheral blood specimen / Unknown Venipuncture / Unknown 10/02/2023 12:53 PM CDT 10/02/2023 12:55 PM CDT Narrative [facility] - 10/02/2023 2:15 PM CDT Reference Ranges: Male: Age 20 - 49 249 - 836 Age >=50 193 - 740 Female: Age 20 - 49 8 - 48 Age >=50 3 - 41 Lola Kidd APRN LAB BLOOD ORDERABLES [facility] Unless otherwise noted, all lab tests performed by: Division of Pathology and Laboratory Medicine [address] [place] [id number] * LDH (10/02/2023 12:53 PM CDT) Only the most recent of6 resultswithin the time period is included. LDH 225 135 - 225 U/L 10/02/2023 1:46 PM CDT [facility] Blood Peripheral blood specimen / Unknown Venipuncture / Unknown 10/02/2023 12:53 PM CDT 10/02/2023 12:55 PM CDT Narrative [facility] - 10/02/2023 1:46 PM CDT Results greater than 1651 U/L may not be reliable due to matrix effect with extended dilution as it exceeds the film maker's recommended limit. Caution should be exercised when interpreting such values and done in conjunction with clinical context. Lola Kidd APRN LAB BLOOD ORDERABLES [facility] [address] [place] [address] * POC Creatinine (06/19/2023 9:53 AM CDT) Only the most recent of2 resultswithin the time period is included. POC Creatinine 1.0 0.6 - 1.3 mg/dL 06/19/2023 9:56 AM CDT [facility] Comment:Medications, especia lly hydroxyurea or supplements, such as ascorbate, can interfere with test results causing a falsely and significantly higher result than expected. If a problem is suspected with a patient's result, a sample should be sent to the laboratory for confirmatory testing. POC eGFR 107 >=60 mL/min/1.7 3 sq. m 06/19/2023 9:56 AM CDT [facility] Comment: The eGFRcr is calculated with the 2020 CKD-EPI creatinine equation using creatinine, patient's age, and sex for adults 18 years of age and older. Other factors, especially muscle mass, may affect accuracy and need to be considered. According to the Kidney Disease: Improving Global Outcomes (KDIGO) CKD Work Group 2012 Clinical Practice Guideline, chronic kidney disease (CKD) is defined as the abnormalities of kidney structure or function, present for more than 3 months, with implications for health. CKD should be classified by cause, GFR category, and albuminuria category. KDIGO guidelines provide the following GFR categories. Stage / Description / GFR mL/min/1.73 m2: G1* / Normal or high / >= 90 G2* / Mildly decreased / 60-89 G3a / Mildly to moderately decreased / 45-59 G3b / Moderately to severely decreased / 30-44 G4 / Severely decreased / 15-29 G5 / Kidney failure / <15 *In the absence of evidence of kidney damage, neither G1 nor G2 fulfill criteria for CKD. Blood 06/19/2023 9:53 AM CDT 06/19/2023 9:56 AM CDT Narrative [facility] - 06/19/2023 9:56 AM CDT Method description: The i-STAT is an analyzer used for in vitro quantification of various analytes in whole blood. The device uses a single disposable cartridge which contains microfabricated sensors, a calibration solution, fluidics system, and a waste chamber. Each test cartridge contains chemically sensitive biosensors on a silicon chip that are configured to perform specific tests. The microfabricated sensors measure analyte concentration by an electrochemical assay. Castillo Norris MD POCT ORDERABLES - DE VICE [facility] Unless otherwise noted, all lab tests performed by: Division of Pathology and Laboratory Medicine [facility] [place] [address] * Magnesium Level (03/20/2023 8:29 AM [facility]) Only the most recent of18 resultswithin the time period is included. Magnesium Level 1.8 1.6 - 2.6 mg/dL 03/20/2023 9:14 AM [facility] Blood Peripheral blood specimen / Unknown Venipuncture / Unknown 03/20/2023 8:29 AM [facility] 03/20/2023 8:44 AM [facility] Lola Kidd APRN LAB BLOOD ORDERABLES [facility] [address] [place] [address] * Glucose, Random (02/12/2023 2:54 AM [facility]) Only the most recent of15 resultswithin the time period is included. Glucose Random 152 70 - 199 mg/dL 02/12/2023 3:54 AM [facility] Blood Peripheral blood specimen / Unknown Venipuncture / Unknown 02/12/2023 2:54 AM [facility] 02/12/2023 3:20 AM [facility] Narrative [facility] - 02/12/2023 3:54 AM [facility] Effective 09/13/15, the glucose reference intervals have been updated based on [place] [employer] guidelines (Standards of Medical Care in Diabetes 2016. Diabetes Care 2016; 39: S13-S22). Fasting blood glucose: Normal: 70-99 mg/dL Impaired fasting glucose (increased risk for diabetes or pre-diabetes): 100-125 mg/dL Diabetes mellitus: >/=126 mg/dL Random blood glucose: Normal: 70-199 mg/dL Note: Random glucose >100 mg/dL is associated with increased risk for diabetes Lola Kidd APRN LAB BLOOD ORDERABLES [facility] Unless otherwise noted, all lab tests performed by: Division of Pathology and Laboratory Medicine [address] [place] [id number] * Phosphorus Level (02/12/2023 2:54 AM [facility]) Only the most recent of16 resultswithin the time period is included. Phosphorus Level 3.0 2.5 - 4.5 mg/dL 02/12/2023 3:[address] [facility] Blood Peripheral blood specimen / Unknown Venipuncture / Unknown 02/12/2023 2:54 AM [facility] 02/12/2023 3:20 AM [facility] Lola Kidd APRN LAB BLOOD ORDERABLES Performing Organization Address City/State/[facility] Co de Phone Number [facility] Unless otherwise noted, all lab tests performed by: Division of Pathology and Laboratory Medicine [address] [place] [phone] * Creatinine,Serum (02/12/2023 2:54 AM [facility]) Only the most recent of15 resultswithin the time period is included. Creatinine 0.82 0.67 - 1.17 mg/dL 02/12/2023 3:54 AM [facility] eGFR 125 >=60 mL/min/1.7 3 sq. m 02/12/2023 3:[address] [facility] Comment: The eGFRcr is calculated with the 2020 CKD-EPI creatinine equation using creatinine, patient's age, and sex for adults 18 years of age and older. Other factors, especially muscle mass, may affect accuracy and need to be considered. According to the Kidney Disease: Improving Global Outcomes (KDIGO) CKD Work Group 2012 Clinical Practice Guideline, chronic kidney disease (CKD) is defined as the abnormalities of kidney structure or function, present for more than 3 months, with implications for health. CKD should be classified by cause, GFR category, and albuminuria category. KDIGO guidelines provide the following GFR categories. Stage / Description / GFR mL/min/1.73 m2: G1* / Normal or high / >= 90 G2* / Mildly decreased / 60-89 G3a / Mildly to moderately decreased / 45-59 G3b / Moderately to severely decreased / 30-44 G4 / Severely decreased / 15-29 G5 / Kidney failure / <15 *In the absence of evidence of kidney damage, neither G1 nor G2 fulfill criteria for CKD. Blood Peripheral blood specimen / Unknown Venipuncture / Unknown 02/12/2023 2:54 AM [facility] 02/12/2023 3:20 AM [facility] Lola Kidd APRN LAB BLOOD ORDERABLES [facility] Unless otherwise noted, all lab tests performed by: Division of Pathology and Laboratory Medicine [address] [place] [id number] * Electrolyte Panel (02/12/2023 2:54 AM [facility]) Only the most recent of15 resultswithin the time period is included. Sodium Level 139 136 - 145 mmol/L 02/12/2023 3:[address] [facility] Potassium Level 3.8 3.4 - 4.5 mmol/L 02/12/2023 3:[address] [facility] Chloride 104 98 - 107 mmol/L 02/12/2023 3:[address] [facility] CO2 25 22 - 29 mmol/L 02/12/2023 3:[address] [facility] Anion Gap 10 4 - 14 mmol/L 02/12/2023 3:[address] [facility] Blood Peripheral blood specimen / Unknown Venipuncture / Unknown 02/12/2023 2:54 AM [facility] 02/12/2023 3:20 AM [employer] [employer] Lola Kidd APRN LAB BLOOD ORDERABLES [facility] Unless otherwise noted, all lab tests performed by: Division of Pathology and Laboratory Medicine [address] [place] [phone] * Blood Urea Nitrogen (02/11/2023 1:52 AM [facility]) Only the most recent of14 resultswithin the time period is included. BUN 10 6 - 23 mg/dL 02/11/2023 2:56 AM [facility] Blood Peripheral blood specimen / Unknown Venipuncture / Unknown 02/11/2023 1:52 AM [facility] 02/11/2023 2:20 AM [facility] Lola Kidd APRN LAB BLOOD ORDERABLES Performing Organization Address City/[facility]/ZIP Co de Phone Number [facility] Unless otherwise noted, all lab tests performed by: Division of Pathology and Laboratory Medicine [address] [place] [phone] * (ABNORMAL) POC Glucose Screen - Fingerstick (01/22/2023 10:10 AM [facility]) Only the most recent of10 resultswithin the time period is included. Glucose Screen 123(H) 70 - 99 mg/dL 01/22/2023 10:13 AM [facility] POC Sample Type Capillary 01/22/2023 10:13 AM [facility] Blood 01/22/2023 10:1 0 AM [facility] 01/22/2023 10:13 AM [facility] Narrative [facility] - 01/22/2023 10:13 AM [facility] Capillary blood samples, e.g. obtained by fingerstick, may have inaccurate results in patients with decreased peripheral blood flow. Method description: All results are measured using Electrochemistry test methodology. The glucose in the sample mixes with the reagents on the test strip. The reaction produces an electric current. The amount of current produced is proportional to the glucose concentration in the blood. All POC Glucose screen test results, including critical values, must be interpreted and evaluated in the context of the patients' clinical findings. It is recommended to confirm any questionable test results by core lab methodology. Castillo Norris MD POCT ORDERABLES - DE VICE [facility] Unless otherwise noted, all lab tests performed by: Division of Pathology and Laboratory Medicine [facility] [place] [address] * (ABNORMAL) Hepatic Function Panel (01/21/2023 2:40 AM [facility]) Only the most recent of5 resultswithin the time period is included. Bilirubin Total <0.3 <=1.2 mg/dL 01/21/2023 3:[address] [facility] Comment: Direct and indirect bilirubin will not be reported when Total bilirubin result is <0.3 mg/dL Indocyanine Green (ICG) may cause falsely elevated bilirubin results. Total and direct bilirubin must not be measured from samples containing indocyanine green. False elevation of total bilirubin can be seen in patients with IgG concentrations above 28 g/L. Bilirubin Direct 01/22/20 23 3:[address] [facility] Comment: Direct and indirect bilirubin will not be reported when Total bilirubin result is <0.3 mg/dL Indocyanine Green (ICG) may cause falsely elevated bilirubin results. Total and direct bilirubin must not be measured from samples containing indocyanine green. Bilirubin Indirect 2022 3:[address] [facility] Comment:Direct and indirect bilirubin will not be reported when Total bilirubin result is <0.3 mg/dL Tot Protein 6.2(L) 6.4 - 8.3 gm/dL 01/21/2023 3:[address] [facility] Alkaline Phosphatase 61 40 - 129 U/L 01/21/2023 3:[address] [facility] Albumin Level 3.8 3.5 - 5.2 gm/dL 01/21/2023 3:[address] [facility] AST 23 <=40 U/L 01/21/2023 3:[address] [facility] ALT 48(H) <=41 U/L 01/21/2023 3:59 AM [facility] Blood Peripheral blood specimen / Unknown Venipuncture / Unknown 01/21/2023 2:40 AM [facility] 01/21/2023 2:58 AM [facility] Lola Alicemario alberto [facility] HAND LAB BLOOD ORDERABLES Performing Organization Address City/[facility] Co de Phone Number [facility] Unless otherwise noted, all lab tests performed by: Division of Pathology and Laboratory Medicine [address] [place] [phone] * Hemoglobin A1c (01/20/2023 4:04 AM [facility]) Hemoglobin A1c 5.0 4.3 - 5.6 % 01/20/2023 4:58 AM [facility] Blood Peripheral blood specimen / Unknown Venipuncture / Unknown 01/20/2023 4:04 AM [facility] 01/20/2023 4:18 AM [facility] Narrative [facility] - 01/20/2023 4:58 AM [facility] HbA1c values >=6.5% are diagnostic of diabetes mellitus. Diagnosis should be confirmed by repeat testing. Therapeutic Action suggested: >8.0% HbA1c; Goal of therapy: <7.0% HbA1c Virginie Kumari ST[facility]ER HAND LAB BLOOD ORDERABLES Performing Organization Address [facility] Co de Phone Number [facility] Unless otherwise noted, all lab tests performed by: Division of Pathology and Laboratory Medicine [address] [place] [id number] * Type and Screen (12/31/2022 4:44 AM [facility]) ABORh O POS 12/31/2022 12:[address] [facility] - TRANSFUSION [facility] Clot Expiration 01/03/2023 23:59 12/31/2022 12:[address] [facility] Historical Record Check Complete 12/31/2022 12:[address] [facility] Blood Peripheral blood specimen / Unknown Venipuncture / Unknown 12/31/2022 4:44 AM [facility] 12/31/2022 5:11 AM [facility] Jenna Gusman ST[facility]ER HAND BLOOD BANK TEST ORD ERABLES [facility] Trans[facility] Services [address] [place] [address] * Echocardiogram 2D Complete (12/30/2022 12:32 PM [facility]) EF 65 ISCV 12/30/2022 11:0 2 AM [facility] Narrative ISCV - 12/30/2022 1:37 PM [facility] Echocardiographic Report Interpretation Summary A complete two-dimensional transthoracic echocardiogram was performed (2D, M- mode, Doppler and color flow Doppler). The study was technically adequate and no previous studies are available for comparison. There is no pericardial effusion. The right ventricle is normal in size and function. LV is dilated using volumetric criteria. Left ventricular systolic function is normal.LV ejection fraction calculated using the bi-plane method of disks is 65 %. Left Ventricle: LV is dilated using volumetric criteria. There is normal left ventricular wall thickness. LV ejection fraction calculated using the bi-plane method of disks is 65 %. Left ventricular systolic function is normal. I WMSI = 1.00 % Normal = 100 Normal GLS Segments Size X - Cannot 2 - 1-2 small Interpret 1 - Normal Hypokinetic 3 - Akinetic 4 - Dyskinetic3- 5 moderate 5 - Aneurysmal 6-14 large 15-16 diffuse Cardiac Mechanics/Speckle Tracking Imaging: Normal global longitudinal peak systolic value. Strain Imaging was performed; GLPS avg = -22.2%. Diastology: Normal diastolic function. Right Ventricle: The right ventricle is normal in size and function. Normal RV systolic function using TAPSE criteria. Atria: The left atrium is mildly dilated. Right atrial size is normal. Mitral Valve: The mitral valve is grossly normal. Tricuspid Valve: The tricuspid valve is normal in structure and function. Unable to estimate RVSP due to lack of TR visualization. Aortic Valve: The aortic valve opens well. The aortic valve is trileaflet. No hemodynamically significant valvular aortic stenosis. No aortic regurgitation is present. Pulmonic Valve: The pulmonic valve is normal in structure and function. Great Vessels: The aortic root is normal size. IVC is small, consistent with intravascular depletion. Pericardium/Pleural: There is no pericardial effusion. MMode/2D Measurements IVSd: 0.98 cm LVIDd: 5.7 cm LVPWd: 1.3 cm Ao root diam: 3.2 cm LVOT diam: 2.5 cm Ao root area: 7.9 cm2 LVOT area: 4.8 cm2 EDV(MOD-A4C): 222.3 ml EDV(MOD-A2C): 178.8 ml ESV(MOD-A4C): 75.5 ml ESV(MOD-A2C): 64.3 ml EF(MOD-A4C): 66.0 % EF(MOD-A2C): 64.0 % LAV(MOD-A2C): 68.0 ml EDV(MOD-bp): 206.6 ml LAV(MOD-A4C): 64.1 ml ESV(MOD-bp): 72.9 ml LAV(MOD-bp): 77.5 ml EF(MOD-bp): 64.7 % LAV(MOD-bp) Indexed: 35.0 ml/m2 EDV (MOD-bp) Index: 93.3 ml/m2 ESV (MOD-bp) Index: 32.9 ml/m2 RWT: 0.46 cm TAPSE (>1.6): 3.6 cm Doppler Measurements MV E max deo: 108.9 cm/sec MV V2 max: 111.3 cm/sec MV A max deo: 81.1 cm/sec MV max P.0 mmHg MV E/A: 1.3 MV V2 mean: 71.3 cm/sec MV mean P.2 mmHg MV V2 VTI: 28.2 cm MVA(VTI): 4.8 cm2 MV dec time: 0.16 sec Ao V2 max: 194.1 cm/sec Ao max P.1 mmHg Ao V2 mean: 130.8 cm/sec Ao mean P.0 mmHg Ao V2 VTI: 35.7 cm NENA(I,D): 3.8 cm2 NENA(V,D): 4.3 cm2 LV V1 max P.0 mmHg SV(LVOT): 134.2 ml LV V1 mean P.2 mmHg LV V1 max: 173.3 cm/sec LV V1 mean: 103.2 cm/sec LV V1 VTI: 28.2 cm NENA Index (I,D): 1.7 NENA Index (V,D): 1.9 Dimensionless Index: 0.89 Procedure Note Chema Mendiola MD - 12/30/2022 Echocardiographic Report Interpretation Summary A complete two-dimensional transthoracic echocardiogram was performed (2D,M- mode, Doppler and color flow Doppler). The study was technicallyadequate and no previous studies are available for comparison. There is no pericardial effusion. The right ventricle is normal in size and function. LV is dilated using volumetric criteria. Left ventricular systolic function is normal.LV ejection fractioncalculated using the bi-plane method of disks is 65 %. Left Ventricle: LV is dilated using volumetric criteria. There is normal left ventricularwall thickness. LV ejection fraction calculated using the bi-plane methodof disks is 65 %. Left ventricular systolic function is normal. I WMSI = 1.00 % Normal = 100 Normal GLS Segments Size X - Cannot 2 - 1-2small Interpret 1 - Normal Hypokinetic 3 - Akinetic 4 - Dyskinetic3-5moderate 5 - Aneurysmal6-14 large 15-16 diffuse Cardiac Mechanics/Speckle Tracking Imaging: Normal global longitudinal peak systolic value. Strain Imaging wasperformed; GLPS avg = -22.2%. Diastology: Normal diastolic function. Right Ventricle: The right ventricle is normal in size and function. Normal RV systolicfunction using TAPSE criteria. Atria: The left atrium is mildly dilated. Right atrial size is normal. Mitral Valve: The mitral valve is grossly normal. Tricuspid Valve: The tricuspid valve is normal in structure and function. Unable toestimate RVSP due to lack of TR visualization. Aortic Valve: The aortic valve opens well. The aortic valve is trileaflet. Nohemodynamically significant valvular aortic stenosis. No aorticregurgitation is present. Pulmonic Valve: The pulmonic valve is normal in structure and function. Great Vessels: The aortic root is normal size. IVC is small, consistent withintravascular depletion. Pericardium/Pleural: There is no pericardial effusion. MMode/2D Measurements IVSd: 0.98 cmLVIDd: 5.7 cm LVPWd: 1.3 cm Ao root diam: 3.2 cmLVOT diam: 2.5 cm Ao root area: 7.9 yn6AHMV area: 4.8 cm2 EDV(MOD-A4C): 222.3 mlEDV(MOD-A2C): 178.8 ml ESV(MOD-A4C): 75.5 mlESV(MOD-A2C): 64.3 ml EF(MOD-A4C): 66.0 %EF(MOD-A2C): 64.0 % LAV(MOD-A2C): 68.0 ml EDV(MOD-bp): 206.6 mlLAV(MOD-A4C): 64.1 ml ESV(MOD-bp): 72.9 mlLAV(MOD-bp): 77.5 ml EF(MOD-bp): 64.7 % LAV(MOD-bp) Indexed: 35.0 ml/m2 EDV (MOD-bp) Index: 93.3 ml/m2ESV (MOD-bp) Index: 32.9 ml/m2 RWT: 0.46 cmTAPSE (>1.6): 3.6 cm Doppler Measurements MV E max deo: 108.9 cm/secMV V2 max: 111.3 cm/sec MV A max deo: 81.1 cm/secMV max P.0 mmHg MV E/A: 1.3MV V2 mean: 71.3 cm/sec MV mean P.2 mmHg MV V2 VTI: 28.2 cm MVA(VTI): 4.8 cm2 MV dec time: 0.16 secAo V2 max: 194.1 cm/sec Ao max P.1 mmHg Ao V2 mean: 130.8 cm/sec Ao mean P.0 mmHg Ao V2 VTI: 35.7 cm NENA(I,D): 3.8 cm2 NENA(V,D): 4.3 cm2 LV V1 max P.0 mmHgSV(LVOT): 134.2 ml LV V1 mean P.2 mmHg LV V1 max: 173.3 cm/sec LV V1 mean: 103.2 cm/sec LV V1 VTI: 28.2 cm NENA Index (I,D): 1.7AVA Index (V,D): 1.9 Dimensionless Index: 0.89 Annemarie Alvarenga STITCHER HAND CV ECHO ORDERABLES Performing Organization Address City/[facility]/ZIP Co de Phone Number ISCV * EKG, 12-Lead (12/28/2022) Jenna Gusman STITCHER HAND ECG ORDERABLES MAG IECG * EKG, 12-Lead (Scheduled) (12/26/2022) Ramez Peter MD ECG ORDERABLES Performing Organization Address City/[facility] Co de Phone Number MAG IECG after 12/19/2022 Advance Directives * Full Code (Latest Code Status on File) Date Activated Date Inactivated Comments 02/07/2023 7:20 PM 02/12/2023 5:34 PM * Full Code Date Activated Date Inactivated Comments 01/17/2023 5:42 PM 01/22/2023 4:37 PM * Full Code Date Activated Date Inactivated Comments 12/27/2022 5:38 PM 01/01/2023 4:44 PM * Full Code Date Activated Date Inactivated Comments 12/06/2022 5:18 PM 12/11/2022 5:34 PM Care Teams Candy Department Manager Relationship Specialty Start Date End Date Jose Culver MD [address] [facility] [address] [place] [address] PCP - External Follow Up A Urology 07/10/20 Castillo Norris MD [facility] [place] [address] [email or web address] PCP - General Genitourinary Oncology 12/27/22 Sarath Sullivan PA [facility] [place] [address] [email or web address] Physician Cosmetics Counter Manager Radiology 11/21/22 Valarie Hernandez PA [address] [place] [phone] [email or web address] Physician Cosmetics Counter Manager Pediatric Medicine 12/05/22 Ramez Peter MD [address] [place] [phone] [email or web address] Consulting Physician Cardiology 12/26/22
--- NOTE | 2023-12-19 13:53 | EDPHYS ---
Physician Documentation [facility] Name: Gilmar Gonzalez Jr Age: 28 yrs Sex: Male : 1995 Arrival Date: 12/19/2023 Time: 12:51 Bed 19 Private MD: ED Physician Vanessa Mcdonald HPI: 12/18 13:49 This 28 yrs old Male presents to ER via Ambulatory with complaints of Abscess.gb1 13:49 37-year-old male comes to the ER with his mom from AFTER seeing Dr. Bill Combs for a right thigh abscess. He is currently on 2 oral antibiotics and sees Dr. Saavedra for management of this wound. He denies any fever or purulent drainage from the wound.. Historical: - Allergies: 13:00 No Known Allergies; aa5 - PMHx: 13:00 Past Hx of Chemotherapy; Testicular CA; aa5 - PSHx: 13:00 Testicular CA; aa5 - Immunization history:: Adult Immunizations unknown. - Infectious Disease History:: Denies. - Social history:: Smoking status: Patient denies any tobacco usage or history of. Exam: 13:49 Constitutional: This is a well developed, well nourished patient who is awake, alert, gb1 and in no acute distress. Head/Face: Normocephalic, atraumatic. Eyes: Pupils equal round and reactive to light, extra-ocular motions intact. Lids and lashes normal. Conjunctiva and sclera are non-icteric and not injected. Cornea within normal limits. Periorbital areas with no swelling, redness, or edema. ENT: Nares patent. No nasal discharge, no septal abnormalities noted. Tympanic membranes are normal and external auditory canals are clear. Oropharynx with no redness, swelling, or masses, exudates, or evidence of obstruction, uvula midline. Mucous membranes moist. Neck: Trachea midline, no thyromegaly or masses palpated, and no cervical lymphadenopathy. Supple, full range of motion without nuchal rigidity, or vertebral point tenderness. No Meningismus. Chest/axilla: Normal chest wall appearance and motion. Nontender with no deformity. No lesions are appreciated. Cardiovascular: Regular rate and rhythm with a normal S1 and S2. No gallops, murmurs, or rubs. Normal PMI, no JVD. No pulse deficits. Respiratory: Lungs have equal breath sounds bilaterally, clear to auscultation and percussion. No rales, rhonchi or wheezes noted. No increased work of breathing, no retractions or nasal flaring. Abdomen/GI: Soft, non-tender, with normal bowel sounds. No distension or tympany. No guarding or rebound. No evidence of tenderness throughout. Skin: Warm, dry with normal turgor. Normal color with no rashes, no lesions, and no evidence of cellulitis. MS/ Extremity: Pulses equal, no cyanosis. Neurovascular intact. Full, normal range of motion. Vital Signs: 13:00 BP 151 / 84; Pulse 91; Resp 16 S; Temp 98.5(O); Pulse Ox 100% on R/A; Weight 97.52 kg aa5 (R); Height 6 ft. 1 in. (R); 13:00 Body Mass Index 28.37 (97.52 kg, 185.42 cm) aa5 MDM: 13:16 Medical Screening Exam initiated gb1 13:51 Data reviewed: vital signs, nurses notes. ED course: 37-year-old male with a known gb1 right thigh abscess which is with a concavity but without any acute purulent drainage. There is a surrounding cellulitis which is currently being treated with 2 oral antibiotics and management by Dr. Saavedra. The patient does not meet criteria for emergent surgery at this time for incision and drainage but will be followed closely next week by Dr. Saavedra in the office. We have also arranged to prescribe topical Bactroban along with instructions on care for wound dressing. Patient is mom as well as he are compliant with this plan of care at discharge home.. Administered Medications: No medications were administered Disposition Summary: 12/19/23 13:52 Discharge Ordered Notes: Location: Home gb1 Condition: Stable gb1 Diagnosis - Cellulitis of right lower limb gb1 Followup: gb1 - With: Garrett Saavedra MD - When: 48 Hours - Reason: Wound Recheck Discharge Instructions: - Discharge Summary Sheet gb1 - Cellulitis, Adult gb1 Forms: - Medication Reconciliation Form gb1 - Antibiotic Education gb1 - Prescription Opioid Use gb1 - Patient Portal Instructions gb1 - Leadership Thank You Letter gb1 Prescriptions: - lidocaine 4 % cream - apply 1 application TOPICAL route every 6 hours as needed for pain; 60 gb1 application; Refills: 0, Product Selection Permitted - mupirocin 2 % Topical ointment - apply 1 application TOPICAL route 2 times per day; 22 gram; Refills: 0, Product gb1 Selection Permitted Signatures: Ligia Mack, RN RN aa5 HarryVanessa MD MD gb1
--- NOTE | 2023-12-19 13:53 | ER ---
Nurse's Notes [facility] Name: Gilmar Gonzalez Jr Age: 28 yrs Sex: Male : 1995 Arrival Date: 12/19/2023 Time: 12:51 Bed 19 Private MD: Diagnosis: Cellulitis of right lower limb Presentation: 12/18 13:00 Chief complaint: Patient states: Abscess to right leg, reports being sent here for IV aa5 antibiotics, failed outpatient therapy. 13:00 Coronavirus screen: At this time, the client does not indicate any symptoms associated aa5 with coronavirus-19. Ebola Screen: Patient denies travel to an Ebola-affected area in the 21 days before illness onset. Initial Sepsis Screen: Does the patient meet any 2 criteria? HR > 90 bpm. Does the patient have a suspected source of infection? No. Patient's initial sepsis screen is negative. Risk Assessment: Do you want to hurt yourself or someone else? Patient reports no desire to harm self or others. Onset of symptoms was November 2023. 13:00 Acuity: MITCH 3 aa5 13:00 Method Of Arrival: Ambulatory aa5 Historical: - Allergies: 13:00 No Known Allergies; aa5 - PMHx: 13:00 Past Hx of Chemotherapy; Testicular CA; aa5 - PSHx: 13:00 Testicular CA; aa5 - Immunization history:: Adult Immunizations unknown. - Infectious Disease History:: Denies. - Social history:: Smoking status: Patient denies any tobacco usage or history of. Vital Signs: 13:00 BP 151 / 84; Pulse 91; Resp 16 S; Temp 98.5(O); Pulse Ox 100% on R/A; Weight 97.52 kg aa5 (R); Height 6 ft. 1 in. (R); 13:00 Body Mass Index 28.37 (97.52 kg, 185.42 cm) aa5 ED Course: 12:53 Patient arrived in ED. ss 12:56 Vanessa Mcdonald MD is Attending Physician. gb1 13:00 Arm band placed on. aa5 13:02 Triage completed. aa5 13:52 Garrett Saavedra MD is Referral Physician. gb1 14:03 [facility], GINNY is Primary Nurse. ll1 Administered Medications: No medications were administered Outcome: 13:52 Discharge ordered by MD. gb1 14:03 Patient left the ED. ll1 Signatures: Ligia Mack, RN RN aa5 Vika Correia RN RN ss [facility] RN RN ll1 Vanessa Mcdonald MD MD gb1
[2023-12-19 14:07] VITALS: BP 151/84; TEMP 98.5; O2SAT 100
== END 2023-12-19 14:03 | disposition home or self-care (01) ==
LOC: ER 12:51
DX: L03.115 Cellulitis of right lower limb (principal)
CPT/HCPCS: 99281

== ENCOUNTER 2024-03-24 08:55 | Day surgery (SDC) | payer BC ==
--- OUTSIDE RECORDS SUMMARY | 2024-03-24 08:58 | XMS REPORT | Clinical Summary ---
Author Name Unknown Organization [facility] Address [address] [place] [address] Care Team Providers Care Head Waitress Name Role Phone Jose Culver MD Unavailable [phone] Sarath Sullivan Unavailable Valarie Hernandez Unavailable [phone] Ramez Peter MD Unavailable [phone] Castillo Norris MD Primary Care Provider [phone] Allergies Active Allergy Reactions Criticality Noted Date Comments Clindamycin Rash Low 12/06/2022 Medications * This document contains information received from the source organization and may not represent a complete record from that organization. cetirizine (ZyrTEC) 10 mg tabletIndicati ons:Germ cell tumor Take 1 tablet (10 mg) by mouth daily. 0 01/02/20 23 Active pantoprazole (PROTONIX) 40 mg EC tabletIndicati ons:Germ cell tumor Take 1 tablet (40 mg) by mouth 2 (two) times a day before meals. 30 tablet 1 3 10:42 AM [facility] 01/02/20 23 Active Additional Information Patient taking differently:40 mg oralEvery morning before breakfast, Reason: Side effects, Informant: Self, Reported on 02/07/2023 multivitamin tab tablet Take 1 tablet by mouth daily. Active acetaminophen (TYLENOL) 500 mg tablet Take 2 tablets (1,000 mg) by mouth twice daily. Active ibuprofen (ADVIL,MOTRIN) 200 mg tablet Take 1 tablet (200 mg) by mouth twice daily. Active sodium chloride-sodiu m bicarbonate (SALT AND SODA) mouthwashIndic ations:mouth cleanser Instructions for making your own salt [...] of this solution four times a day. 12/11/19 23 2023 Discontinued prochlorperazi ne (Compazine) 10 mg tabletIndicati ons:Germ cell tumor Take 1 tablet (10 mg) by mouth every 6 (six) hours as needed for nausea or vomiting. May cause drowsiness. 30 tablet 2 3 12:03 PM CDT 12/11/19 23 2023 Discontinued(T herapy completed) baclofen (LIORESAL) 5 mg tab tabletIndicati ons:Germ cell tumor Take 1 tablet (5 mg) by mouth every 8 (eight) hours as needed for hiccups. 30 tablet 3 10:42 AM [facility] 01/01/202023 Discontinued(T herapy completed) dexAMETHasone (DECADRON) 4 mg tabletIndicati ons:prevention of chemotherapy-i nduced nausea and vomiting Take 1 tablet by mouth twice a day for 3 days after chemotherapy, then stop. 6 tablet 1 3 8:55 AM [facility] 02/12/202023 Discontinued ondansetron (ZOFRAN) 8 mg tabletIndicati ons:cancer chemotherapy-i nduced nausea and vomiting Take 1 tablet by mouth twice a day for 3 days after chemotherapy. Then, take 1 tablet every 8 hours as needed for nausea/vomiting . 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); Germ cell tumor 01/29/2024 2:30 PM [facility] Ancillary Procedure PET Imaging [address] [place] [address], 6th [place] [address] Castillo Norris MD Germ cell tumor 01/29/2024 12:45 PM [facility] - 01/29/2024 11:59 PM [facility] Hospital Encounter [facility] [address] [place] [address] Castillo Norris MD Germ cell tumor Discharge Disposition: Home 10/06/2023 Telephone [facility] [address] [place] [address], 7th [place] [address] Garima Candelario RN 10/03/2023 1:00 PM CDT Follow-Up [facility] [address] [place] [address], 7th [place] [address] Castillo Norris MD Germ cell tumor 10/03/2023 Travel 10/02/2023 1:30 PM CDT Ancillary Procedure PET Imaging [address] [facility], 6th [place] [address] Lola Kidd APRN Germ cell tumor 10/02/2023 11:45 AM CDT - 10/02/2023 11:59 PM CDT Hospital Encounter [facility] [address] [place] [address] Lola Kidd APRN Germ cell tumor Discharge Disposition: Home 06/20/2023 2:00 PM CDT Telemedicine [facility] [address] [place] [address], 7th [place] [address] Castillo Norris MD Germ cell tumor (Primary Dx) 06/19/2023 10:30 AM CDT Ancillary Procedure PET Imaging [address] [place] [address], 6th [place] [address] Castillo Norris MD Germ cell tumor 06/19/2023 9:15 AM CDT - 06/19/2023 11:59 PM CDT Hospital Encounter [facility] [address] [place] [address] Castillo Norris MD Germ cell tumor Discharge Disposition: Home after 03/25/2023 Medical History Medical History Date Comments Unspecified [...] Recorded Sex Assigned at Not on file Legal Sex Male 1:57 PM CDT Gender Identity Not on file Sexual Orientation Straight 01/08/2021 2: 31 PM [facility] Obstetrics History Last Filed Vital Signs Vital Sign Reading Time Taken Comments Blood Pressure 100/65 10/03/2023 12:44 PM CDT Pulse 84 10/03/2023 12:44 PM CDT Temperature 36.3 C (97.3 F) 10/03/2023 12:44 PM C DT Respiratory Rate 18 10/03/2023 12:44 PM CDT Oxygen Saturation 98% 10/03/2023 12:44 PM CDT Inhaled Oxygen Concentration - - Weight 96.7 kg (213 lb 3 oz) 01/29/2024 1:00 PM [facility] Height 183 cm (6' 0.05") 10/03/2023 12:40 PM CDT Body Mass Index 28.88 10/03/2023 12:40 PM CDT Plan of Treatment Upcoming Encounters Date Type Department Care Team (Late st Contact Info) Description 05/07/2024 3:00 PM CDT Telemedicine [facility] [address] [place] [address], 7th [place] [address] Castillo Norris MD [address] [place] [id number] [email or web address] 07/29/2024 12:15 PM CDT Appointment [facility] [address] [place] [address] Castillo Norris MD [address] [place] [phone] [email or web address] 07/29/2024 1:00 PM CDT Ancillary Procedure PET Imaging [address] [place] [address], 6th [place] [address] Castillo Norris MD [address] [place] [address] [email or web address] 07/30/2024 9:30 AM CDT Follow-Up [facility] [address] [facility], 7th [place] [address] Castillo Norris MD [address] [place] [address] [email or web address] Health Maintenance Due Date Last Done Comments COVID-19 Vaccine (#1) 2002 Influenza Vaccine (#1) 2023 Pneumococcal Vaccine Aged Out No long er eligible based on patient's age to complete this topic Procedures Procedure Name Priority Date/Time Associated Diagnosis Comments PETCT F18 FDG (FLUORODEOXYGLUCOSE) WITHOUT CONTRAST Routine 01/29/2024 3:56 PM [facility] Germ cell tumor .CBC Routine 01/29/2024 1:52 PM [facility] Germ cell tumor LACTATE DEHYDROGENASE Routine 01/29/2024 1:52 PM [facility] Germ cell tumor HC BETA HCG TUMOR MARKER (BHCG T) Routine 01/29/2024 1:52 PM [facility] Germ cell tumor ALPHA FETOPROTEIN TUMOR MARKER Routine 01/29/2024 1:52 PM [facility] Germ cell tumor COMPREHENSIVE METABOLIC PANEL Routine 01/29/2024 1:52 PM [facility] Germ cell tumor COMPLETE BLOOD COUNT W/ DIFFERENTIAL Routine 01/29/2024 1:52 PM [facility] Germ cell tumor PETCT F18 FDG (FLUORODEOXYGLUCOSE) [...] 06/19/2023 9:32 AM CDT Germ cell tumor after 03/25/2023 Results * PETCT F18 FDG (Fluorodeoxyglucose) without contrast (01/29/2024 3:56 PM [facility]) Anatomical Region Laterality Modality Whole Body Positron Emissio n Tomography (PET) 01/29/2024 5:14 PM [facility] Impressions 01/29/2024 5:29 PM [facility] No evidence of FDG avid adenopathy in the thorax, abdomen or pelvis. Persistent focal increased metabolic activity is noted in the right thigh, perhaps related to inflammation. This can be further evaluated if clinically indicated. New focus of increased metabolic activity is noted along the lateral aspect of the left vastus lateralis muscle. This is also likely perhaps inflammatory. Please correlate clinically. ACTIONABLE ITEMS/RECOMMENDATIONS*: None. *An Actionable Finding is a finding that may be unrelated to the original reason for imaging but potentially actionable, meaning further investigation may be necessary. The Actionable Findings Vigilance Unit (AFVU) assists medical providers with responding to additional radiologic findings that are unexpected and potentially actionable. Narrative 01/29/2024 5:29 PM [facility] FULL RESULT: Examination: 18F-FDG-PET/CT without contrast, 01/29/2024 3:56 PM Clinical History: Germ cell tumor Indication: Restaging study for subsequent treatment strategy. Comparison: PET/CT from 10/02/2023 Technique: F-18 fluorodeoxyglucose 9.4 mCi was administered intravenously via left antecubital vein. To allow for distribution and uptake of radiotracer, the patient was asked to rest quietly for approximately 60-90 minutes. PET/CT imaging was performed from the vertex to thighs. CT scanning was done for attenuation correction, image registration, and diagnosis with scan parameters optimized to minimize radiation exposure to the patient. SUV measurements are reported as maximum SUV based on body weight unless otherwise specified. Findings: Head and Neck: Symmetrical intracranial radiotracer activity is noted. No definite evidence of intracranial mass lesions. Physiological distribution of tracer is noted in the lymphoid tissue surrounding the oropharynx. There is no evidence of FDG avid cervical adenopathy. Chest: No abnormally enlarged or FDG avid mediastinal, hilar or axillary adenopathy is identified. No FDG avid pulmonary parenchymal lesions are seen. Abdomen and Pelvis: Physiological distribution of tracer is noted in the liver, spleen. The kidneys,adrenal glands and the pancreas are unremarkable. No abnormally enlarged or FDG avid retroperitoneal, mesenteric or pelvic adenopathy is seen. No pelvic mass lesions are seen. Mildly prominent bilateral superficial inguinal nodes with low-grade metabolic activity are likely reactive in nature. Musculoskeletal: Linear increased metabolic activity in the extensor compartment of the right thigh is again noted on images [id number]. This finding has been seen in multiple prior examinations dated back to November 2022. Mild low-grade low-attenuation is noted in the muscles. Please correlate clinically. This can be further evaluated with MRI of the lower extremities indication. New focal increased metabolic activity is noted in the lateral aspect of the left vastus muscle on image 364 with a maximum SUV of Procedure Note Iban Webb MD - 01/29/2024 FULL RESULT: Examination: 18F-FDG-PET/CT without contrast, 01/29/2024 3:56 PM Clinical History: Germ cell tumor Indication: Restaging study for subsequent treatment strategy. Comparison: PET/CT from 10/02/2023 Technique: F-18 fluorodeoxyglucose 9.4 mCi was administered intravenously via leftantecubital vein. To allow for distribution and uptake of radiotracer, thepatient was asked to rest quietly for approximately 60-90 minutes. PET/CTimaging was performed from the vertex to thighs. CT scanning was done forattenuation correction, image registration, and diagnosis with scanparameters optimized to minimize radiation exposure to the patient. SUVmeasurements are reported as maximum SUV based on body weight unlessotherwise specified. Findings: Head and Neck: Symmetrical intracranial radiotracer activity is noted. No definiteevidence of intracranial mass lesions. Physiological distribution oftracer is noted in the lymphoid tissue surrounding the oropharynx. Thereis no evidence of FDG avid cervical adenopathy. Chest: No abnormally enlarged or FDG avid mediastinal, hilar or axillaryadenopathy is identified. No FDG avid pulmonary parenchymal lesions areseen. Abdomen and Pelvis: Physiological distribution of tracer is noted in the liver, spleen. Thekidneys,adrenal glands and the pancreas are unremarkable. No abnormallyenlarged or FDG avid retroperitoneal, mesenteric or pelvic adenopathy isseen. No pelvic mass lesions are seen. Mildly prominent bilateral superficial inguinal nodes with low-grademetabolic activity are likely reactive in nature. Musculoskeletal: Linear increased metabolic activity in the extensorcompartment of the right thigh is again noted on images [id number]. Thisfinding has been seen in multiple prior examinations dated back to November2022. Mild low-grade low- attenuation is noted in the muscles. Pleasecorrelate clinically. This can be further evaluated with MRI of the lowerextremities indication. New focal increased metabolic activity is noted in the lateral aspect ofthe left vastus muscle on image 364 with a maximum SUV of IMPRESSION: No evidence of FDG avid adenopathy in the thorax, abdomen or pelvis. Persistent focal increased metabolic activity is noted in the right thigh,perhaps related to inflammation. This can be further evaluated ifclinically indicated. New focus of increased metabolic activity is noted along the lateralaspect of the left vastus lateralis muscle. This is also likely perhapsinflammatory. Please correlate clinically. ACTIONABLE ITEMS/RECOMMENDATIONS*: None. *An Actionable Finding is a finding that may be unrelated to the originalreason for imaging but potentially actionable, meaning furtherinvestigation may be necessary. The Actionable Findings Vigilance Unit(AFVU) assists medical providers with responding to additional radiologicfindings that are unexpected and potentially actionable. us Castillo Norris MD IMG PETCT ORDERABLES Final Resul t * BHCG, Tumor Marker (01/29/2024 1:52 PM [facility]) Only the most recent of3 resultswithin the time period is included. Beta HCG-Tumor Marker <0.6 <=1.9 mIU/mL 01/29/2024 2:44 PM [facility] Blood Peripheral blood specimen / Unknown Venipuncture / Unknown 01/29/2024 1:52 PM [facility] 01/29/2024 1:54 PM [facility] Narrative [facility] - 01/29/2024 2:44 PM [facility] Tumor Markers [facility] Reference Range Female: Negative: < 1.0 mIU/mL Non-: </= 1.0 mIU/mL Post-menopausal women: </= 7.0 mIU/mL Male: < 2.0 mIU/mL us Castillo Norris MD LAB BLOOD ORDERABLES Final Resul t [facility] [address] [place] [address] * (ABNORMAL) .CBC (01/29/2024 1:52 PM [facility]) Only the most recent of3 resultswithin the time period is included. White Blood Cell 4.7 4.1 - 10.5 K/uL 01/29/2024 2:04 PM [facility] Red Blood Cell 5.64 4.30 - 6.04 M/uL 01/29/2024 2:04 PM [facility] Hemoglobin 16.9 13.3 - 17.4 g/dL 01/29/2024 2:04 PM [facility] Hematocrit 51.6 39.5 - 51.8 % 01/29/2024 2:04 PM [facility] Mean Cell Volume 92 82 - 99 fL 01/29/2024 2:04 PM [facility] Mean Cell Hemoglobin 30.0 26.6 - 33.2 pg 01/29/2024 2:04 PM [facility] Mean Cell Hemoglobin Concentration 32.8 31.1 - 35.2 g/dL 01/29/2024 2:04 PM [facility] RDW-SD 50.5(H) 37.5 - 49.7 fL 01/29/2024 2:04 PM [facility] Red Cell Diameter Width 14.8 11.6 - 15.5 % 01/29/2024 2:04 PM [facility] Platelet 179 160 - 397 K/uL 01/29/2024 2:04 PM [facility] Mean Platelet Volume 9.8 9.1 - 12.6 fL 01/29/2024 2:04 PM [facility] INRBC 0.0 0.0 - 0.1 /100 WBC 01/29/2024 2:04 PM [facility] Comment: The INRBC (instrument NRBC) value reflects the enumeration of nucleated red blood cells contained in a 200uL sample of whole blood analyzed by the instrument. This value may differ from the NRBC value reported in a manual differential, which is based on a 100 cell differential. Neutrophil % 68.0 43.2 - 72.7 % 01/29/2024 2:04 PM [facility] Lymphocyte % 19.5 16.8 - 46.2 % 01/29/2024 2:04 PM [facility] Monocyte % 9.8 5.1 - 12.5 % 01/29/2024 2:04 PM [facility] Eosinophil % 1.7 0.4 - 6.3 % 01/29/2024 2:04 PM [facility] Basophil % 0.6 0.2 - 1.4 % 01/29/2024 2:04 PM [facility] IGRE % 0.4 0.1 - 1.5 % 01/29/2024 2:04 PM [facility] Comment:The IGRE% includes M etamyelocytes, Myelocytes and Promyelocytes. Neutrophil Abs 3.20 1.95 - 7.25 K/uL 01/29/2024 2:04 PM [facility] Lymphocyte Abs 0.92(L) 1.01 - 3.24 K/uL 01/29/2024 2:04 PM [facility] Monocyte Abs 0.46 0.24 - 0.85 K/uL 01/29/2024 2:04 PM [facility] Eosinophil Abs 0.08 0.02 - 0.50 K/uL 01/29/2024 2:04 PM [facility] Basophil Abs 0.03 0.02 - 0.09 K/uL 01/29/2024 2:04 PM [facility] IG Abs 0.02 0.01 - 0.12 K/uL 01/29/2024 2:04 PM [facility] Blood Peripheral blood specimen / Unknown Venipuncture / Unknown 01/29/2024 1:52 PM [facility] 01/29/2024 1:54 PM [facility] us Castillo Norris MD LAB BLOOD ORDERABLES Final Resul t [facility] [address] [facility] [place] [address] * (ABNORMAL) Comprehensive Metabolic Panel (01/29/2024 1:52 PM [facility]) Only the most recent of3 resultswithin the time period is included. [facility] Bilirubin Total 0.6 0.0 - 1.2 mg/dL 01/29/2024 2:29 PM [facility] Comment:Indocyanine Green (I CG) may cause falsely elevated bilirubin results. Total and direct bilirubin must not be measured from samples containing indocyanine green. False elevation of total bilirubin can be seen in patients with IgG concentrations above 28 g/L. eGFR 86 >=60 mL/min/1. 73 sq. m 01/29/2024 2:29 PM [facility] Comment: The eGFRcr is calculated with the [...] G2 fulfill criteria for CKD. Tot Protein 7.2 6.4 - 8.3 gm/dL 01/29/2024 2:29 PM [facility] Calcium Level Total 9.4 8.2 - 10.2 mg/dL 01/29/2024 2:29 PM [facility] Alkaline Phosphatase 56 40 - 129 U/L 01/29/2024 2:29 PM [facility] Albumin Level 4.6 3.5 - 5.2 gm/dL 01/29/2024 2:29 PM [facility] AST 28 <=40 U/L 01/29/2024 2:29 PM [facility] ALT 34 <=41 U/L 01/29/2024 2:29 PM [facility] Sodium Level 140 136 - 145 mmol/L 01/29/2024 2:29 PM [facility] Potassium Level 4.8(H) 3.4 - 4.5 mmol/L 01/29/2024 2:29 PM [facility] Chloride 106 98 - 107 mmol/L 01/29/2024 2:29 PM [facility] CO2 27 22 - 29 mmol/L 01/29/2024 2:29 PM [facility] Anion Gap 7 4 - 14 mmol/L 01/29/2024 2:29 PM [facility] Creatinine 1.20(H) 0.67 - 1.17 mg/dL 01/29/2024 2:29 PM [facility] BUN 12 6 - 23 mg/dL 01/29/2024 2:29 PM [facility] Glucose Level 94 70 - 99 mg/dL 01/29/2024 2:29 PM [facility] Comment: Effective 09/13/15, the glucose reference intervals have been updated based on [place] [employer] guidelines (Standards of Medical Care in Diabetes 2016. Diabetes Care 2016; 39: S13-S22). Fasting blood glucose: Normal: 70-99 mg/dL Impaired fasting glucose (increased risk for diabetes or pre-diabetes): 100-125 mg/dL Diabetes mellitus: >/=126 mg/dL Random blood glucose: Normal: 70-199 mg/dL Note: Random glucose >100 mg/dL is associated with increased risk for diabetes. Blood Peripheral blood specimen / Unknown Venipuncture / Unknown 01/29/2024 1:52 PM [facility] 01/29/2024 1:54 PM [facility] us Castillo Norris MD LAB BLOOD ORDERABLES Final Resul t [facility] [address] [facility] [place] [address] * AFP (01/29/2024 1:52 PM [facility]) Only the most recent of3 resultswithin the time period is included. Alpha Fetoprotein (AFP) Tumor Marker <2.7 <=8.3 ng/mL 01/29/2024 2:44 PM [facility] Blood Peripheral blood specimen / Unknown Venipuncture / Unknown 01/29/2024 1:52 PM [facility] 01/29/2024 1:54 PM [facility] Narrative [facility] - 01/29/2024 2:44 PM [facility] Results greater than 45,875.00 ng/mL may not be reliable due to matrix effect with extended dilution as it exceeds the recyclable products sorter's recommended limit. Caution should be exercised when interpreting such values and done in conjunction with clinical context. This test is measured by electrochemiluminescence immunoassay on [employer] immunoassay analyzers. Results obtained in different methods are not interchangeable. us Castillo Norris MD LAB BLOOD ORDERABLES Final Resul t Performing Organization Address [facility] de Phone Number [address] [place] [address] * (ABNORMAL) LDH (01/29/2024 1:52 PM [facility]) Only the most recent of3 resultswithin the time period is included. LDH 131(L) 135 - 225 U/L 01/29/2024 2:29 PM [facility] Blood Peripheral blood specimen / Unknown Venipuncture / Unknown 01/29/2024 1:52 PM [facility] 01/29/2024 1:54 PM [facility] - 01/29/2024 2:29 PM [facility] Results greater than 1651 U/L may not be reliable due to matrix effect with extended dilution as it exceeds the recyclable products sorter's recommended limit. Caution should be exercised when interpreting such values and done in conjunction with clinical context. us Castillo Norris MD LAB BLOOD ORDERABLES Final Resul t Performing Organization Address [facility] de Phone Number [address] [place] [address] * PETCT F18 FDG (Fluorodeoxyglucose) with contrast (10/02/2023 3:43 PM CDT) Only the most recent of2 resultswithin [...] uptake within the right lateral thigh muscle ([id number]) with SUV max of 8.8 compared to [...] actionable. Lola Kidd APRN IMG PETCT ORDERABLES Final Resu lt * Testosterone Level (10/02/2023 12:53 PM CDT) Testosterone Total 276 249 - 836 ng/dL 10/02/2023 2:15 PM CDT [facility] Blood Peripheral blood specimen / Unknown Venipuncture / Unknown 10/02/2023 12:53 PM CDT 10/02/2023 12:55 PM CDT Narrative [facility] - 10/02/2023 2:15 PM CDT Reference Ranges: Male: Age 20 - 49 249 - 836 Age >=50 193 - 740 Female: Age 20 - 49 8 - 48 Age >=50 3 - 41 us Lola Kidd APRN LAB BLOOD ORDERABLES Final Resu lt [facility] Unless otherwise noted, all lab tests performed by: Division of Pathology and Laboratory Medicine [address] [place] [id number] * POC Creatinine (06/19/2023 9:53 AM CDT) POC Creatinine 1.0 0.6 - 1.3 mg/dL 06/19/2023 9:56 AM CDT [facility] Comment:Medications, especia lly hydroxyurea or supplements, such as ascorbate, can interfere with test results causing a falsely and significantly higher result than expected. If a problem is suspected with a patient's result, a sample should be sent to the laboratory for confirmatory testing. POC eGFR 107 >=60 mL/min/1.7 3 sq. m 06/19/2023 9:56 AM CDT [facility] Comment: The eGFRcr is calculated with the [...] AM CDT 06/19/2023 9:56 AM CDT Narrative [facility] - 06/19/2023 9:56 AM CDT Method description: [...] measure analyte concentration by an electrochemical assay. us Castillo Norris MD POCT ORDERABLES - DEVICE Final R esult [facility] Unless otherwise noted, all lab tests performed by: Division of Pathology and Laboratory Medicine [address] [place] [id number] after 03/25/[address] [place] [address] [place] [address] [place] PPO POS Advance Directives * Full Code (Latest Code [...] 5:18 PM 12/11/2022 5:34 PM Care Teams Head Waitress Relationship Specialty Start Date End Date Jose Culver MD [address] [place] [address] [address] [place] [address] PCP - External Follow Up A Urology 07/10/20 Castillo Norris MD [facility] [place] [address] [email or web address] PCP - General Genitourinary Oncology 12/27/22 Sarath Sullivan PA [address] [place] [address] [email or web address] Physician District Representative Radiology 11/21/22 Valarie Hernandez PA [address] [place] [address] [email or web address] Physician District Representative Pediatric Medicine 12/05/22 Ramez Peter MD [facility] [place] [address] [email or web address] Consulting Physician Cardiology 12/26/22
[2024-03-24] MEDS ORDERED: LORazepam 2 MG/ML VIAL ONE (10:16)
[2024-03-24] MEDS ORDERED: LIDOCAINE 2% W/EPI 1:200,000 MPF 20 ML VIAL IM ONE (10:17)
[2024-03-24] MEDS ORDERED: NA CHLORIDE 0.9% 1,000 ML ONE (10:17)
[2024-03-24] MEDS ORDERED: SMZ./TMP. 800/160 MG TABLET ONE (10:17)
[2024-03-24] MEDS ORDERED: CLINDAMYCIN 900MG/D5W 900 MG/50 ML IVPB IV ONE (10:18)
--- NOTE | 2024-03-24 10:45 | RAD REPORT ---
EXAM: Extremity Nonvascular Limited HISTORY: Pain;Swelling RIGHT COMPARISON: 09/13/2022 TECHNIQUE: Sonographic grayscale and color flow imaging of the right lateral thigh region including t he region of interest as described by the patient. FINDINGS: Abnormal fluid collection is seen in the subcutaneous tissues just deep to the area of skin redness. This measures approximately 2-3 cm in size and is immediately below the skin surface. Note is made of fluid which extends and tracks posteriorly along the fascial planes about 4-5 cm from this primary collection. This is presumed to be abscess.
--- NOTE | 2024-03-24 10:50 | ER ---
Nurse's Notes [facility] Name: Gilmar Gonzalez Jr Age: 28 yrs Sex: Male : 1995 Arrival Date: 03/24/2024 Time: 08:55 Bed 5 Private MD: Diagnosis: Cutaneous abscess of right lower limb-right lateral thigh abscess, recurrent Presentation: 03/24 09:46 Chief complaint: Patient states: redness to R upper thigh that began 3 days ago. HX of iw abscess to same location. Denies fever. Coronavirus screen: Client denies travel out of the [place] in the last 14 days. Ebola Screen: Patient denies exposure to infectious person. Patient denies travel to an Ebola-affected area in the 21 days before illness onset. Initial Sepsis Screen: Does the patient meet any 2 criteria? No. Patient's initial sepsis screen is negative. Does the patient have a suspected source of infection? No. Patient's initial sepsis screen is negative. Risk Assessment: Do you want to hurt yourself or someone else? Patient reports no desire to harm self or others. Onset of symptoms was March 21, 2024. 09:46 Method Of Arrival: Ambulatory iw 09:46 Acuity: MITCH 4 iw 10:24 Acuity: MITCH 3 ss Historical: - Allergies: 09:48 No Known Allergies; iw - PMHx: 09:48 Past Hx of Chemotherapy; testicular CA; iw - PSHx: 09:48 Testicular CA; iw - Immunization history:: Adult Immunizations up to date. - Infectious Disease History:: Denies. - Family history:: not pertinent. - Social history:: Smoking status: unknown. Screenin:54 [facility] ED Fall Risk Assessment (Adult) History of falling in the last 3 months, kc6 including since admission No falls in past 3 months (0 pts) Confusion or Disorientation No (0 pts) Intoxicated or Sedated No (0 pts) Impaired Gait No (0 pts) Mobility Assist Device Used No (0 pt) Altered Elimination No (0 pt) Score/Fall Risk Level 0 - 2 = Low Risk Oriented to surroundings, Maintained a safe environment, Educated pt \\T\\ family on fall prevention, incl call for assistance when getting out of bed. Abuse screen: Denies threats or abuse. Denies injuries from another. Nutritional screening: No deficits noted. Tuberculosis screening: No symptoms or risk factors identified. Assessment: 10:55 General: Appears in no apparent distress. comfortable, well groomed, well developed, kc6 Behavior is calm, cooperative, appropriate for age. Pain: Complains of pain in lateral aspect of right thigh. Neuro: Level of Consciousness is awake, alert, obeys commands, Oriented to person, place, time, situation, Appropriate for age. Cardiovascular: Capillary refill < 3 seconds. Respiratory: Airway is patent Trachea midline Respiratory effort is even, unlabored, Respiratory pattern is regular, symmetrical. GI: No signs and/or symptoms were reported involving the gastrointestinal system. : No signs and/or symptoms were reported regarding the genitourinary system. EENT: No signs and/or symptoms were reported regarding the EENT system. Derm: Skin is healthy with good turgor, Skin is pink, warm \\T\\ dry. Abscess located on lateral aspect of right thigh is half dollar sized, has no drainage, is hot to touch, is red, is raised. Musculoskeletal: No signs and/or symptoms reported regarding the musculoskeletal system. Circulation, motion, and sensation intact. Range of motion: intact in all extremities. 10:56 Reassessment: pts mom pulls this nurse aside and states, "he made a comment to me kc6 earlier about being done with all of this and just wanting to . I don't know if he needs a mood stabilizer or what but I just wanted to tell you." Upon bringing up the topic to the pt, he states, "no I wasn't serious." pt denies SI or HI or having any plan at this time. 11:56 Reassessment: Patient appears in no apparent distress at this time. No changes from kc6 previously documented assessment. Patient and/or family updated on plan of care and expected duration. Pain level reassessed. Patient is alert, oriented x 3, equal unlabored respirations, skin warm/dry/pink. 12:56 Reassessment: Patient appears in no apparent distress at this time. No changes from kc6 previously documented assessment. Patient and/or family updated on plan of care and expected duration. Pain level reassessed. Patient is alert, oriented x 3, equal unlabored respirations, skin warm/dry/pink. Vital Signs: 09:46 Pulse 72; Resp 15; Pulse Ox 100% on R/A; Weight 97.52 kg; Height 6 ft. 1 in. ; iw 10:05 BP 141 / 82; Temp 99(O); iw 13:08 BP 135 / 82; Pulse 80; Resp 18 S; Pulse Ox 100% on R/A; kc6 09:46 Body Mass Index 28.37 (97.52 kg, 185.42 cm) iw ED Course: 08:57 Patient arrived in ED. mr 09:06 Bill Combs MD is Attending Physician. jane 09:48 Triage completed. iw 09:48 Arm band placed on right wrist. iw 10:22 US Extrmty Nonvasular Limited In Process Unspecified. EDMS 10:35 Inserted saline lock: 20 gauge in left upper arm, using aseptic technique. Blood ty collected. Flushed with 10 mL NS. 10:48 Garrett Saavedra MD is Hospitalizing Provider. [facility] 10:54 Soraida Smith RN is Primary Nurse. kc6 10:54 Patient has correct armband on for positive identification. Bed in low position. Call kc6 light in reach. Side rails up X 1. Adult w/ patient. Pulse ox on. NIBP on. Door closed. Noise minimized. Lights dimmed. Pillow given. Verbal reassurance given. Diet: Patient is NPO. 10:54 Patient maintains SpO2 saturation greater than 95% on room air. kc 13:08 No provider procedures requiring assistance completed. Patient admitted, IV remains in kc6 place. Administered Medications: 10:45 Not Given (Duplicate Order): trimethoprim-sulfamethoxazole(160 mg-800 mg (ds) 2 tablet jane PO once 10:45 Not Given (Duplicate Order): [id number] mg PO once [facility] 10:49 Drug: NS 0.9% IV 1000 ml IV at 1000 ml once; to be given as a bolus over 60 minutes kc6 Route: IV; Rate: 1000 ml; Site: left upper arm; 13:09 Follow up: Response: No adverse reaction; IV Status: Completed infusion; IV Intake: kc6 1000ml 10:49 Drug: Clindamycin IVPB 900 mg IVPB once over 30 mins; (mix in 50 mL) Route: IVPB; kc6 Infused Over: 30 mins; Site: left upper arm; 13:09 Follow up: Response: No adverse reaction; IV Status: Completed infusion; IV Intake: [id number] 10:49 Drug: Ativan IVP 1 mg IVP once; Prior to procedure. Verbal order Per Dr. Combs kc6 Route: IVP; Site: left upper arm; 13:09 Follow up: Response: No adverse reaction; Anxiety decreased kc6 10:50 Drug: Clindamycin PO 300 mg PO once Route: PO; kc6 13:09 Follow up: Response: No adverse reaction kc6 10:50 Drug: Trimethoprim-Sulfamethoxazole PO (160 mg-800 mg (DS) 2 tablet PO once Route: PO; kc6 13:09 Follow up: Response: No adverse reaction kc6 12:16 Not Given (Physician Discretion): [id number]-[id number]-2%: (1:100,000) 10 ml 20 ml kc6 Infiltration once; to bedside Medication: 13:10 VIS not applicable for this client. kc6 Intake: 13:09 IV: 1000ml; Total: 1000ml. kc6 13:09 IV: 50ml; Total: 1050ml. kc6 Outcome: 10:49 Decision to Hospitalize by Provider. jane 13:09 Admitted to OR accompanied by nurse, family with patient, via wheelchair, with chart, kc6 Report called to Lupe Noguera RN 13:09 Condition: good 13:09 Instructed on the need for admit, 13:18 Patient left the ED. iw Signatures: Dispatcher [employer] Bill Sierra MD MD cha Rivera Loretta, Reg Reg Jonna Jones RN RN iw Vika Correia RN RN ss Campbell, Kaitlyn, RN RN kc6 Yandell, Tylor ty
--- NOTE | 2024-03-24 10:50 | EDPHYS ---
Physician Documentation [facility] Name: Gilmar Gonzalez Jr Age: 28 yrs Sex: Male : 1995 Arrival Date: 03/24/2024 Time: 08:55 Bed 5 Private MD: ED Physician Bill Combs HPI: 03/24 10:25 This 28 yrs old Male presents to ER via Ambulatory with complaints of Abscess.jane 10:25 The patient presents with an abscess of the right leg, The patient presents with jane cellulitis of the right leg. Description: erythematous. Onset: The symptoms/episode began/occurred 3 day(s) ago. Associated signs and symptoms: The patient has no apparent associated signs or symptoms. Modifying factors: the symptoms are alleviated by nothing, the symptoms are aggravated by nothing. Severity of symptoms: At their worst the symptoms were moderate, in the emergency department the symptoms are unchanged. The patient has experienced similar episodes in the past, multiple times. Historical: - Allergies: 09:48 No Known Allergies; iw - PMHx: 09:48 Past Hx of Chemotherapy; testicular CA; iw - PSHx: 09:48 Testicular CA; iw - Immunization history:: Adult Immunizations up to date. - Infectious Disease History:: Denies. - Family history:: not pertinent. - Social history:: Smoking status: unknown. ROS: 10:25 Constitutional: Negative for fever, chills, and weight loss, Eyes: Negative for injury, jane pain, redness, and discharge, ENT: Negative for injury, pain, and discharge, Neck: Negative for injury, pain, and swelling, Cardiovascular: Negative for chest pain, palpitations, and edema, Respiratory: Negative for shortness of breath, cough, wheezing, and pleuritic chest pain, Abdomen/GI: Negative for abdominal pain, nausea, vomiting, diarrhea, and constipation, Back: Negative for injury and pain, : Negative for injury, bleeding, discharge, and swelling, Neuro: Negative for headache, weakness, numbness, tingling, and seizure, Psych: Negative for depression, anxiety, suicide ideation, homicidal ideation, and hallucinations, Allergy/Immunology: Negative for hives, rash, and allergies, Endocrine: Negative for neck swelling, polydipsia, polyuria, polyphagia, and marked weight changes, Hematologic/Lymphatic: Negative for swollen nodes, abnormal bleeding, and unusual bruising, 10:25 MS/extremity: Positive for erythema, pain, swelling, tenderness, of the lateral aspect of right thigh, Exam: 10:25 Constitutional: This is a well developed, well nourished patient who is awake, alert, jane and in no acute distress. Head/Face: Normocephalic, atraumatic. Eyes: Pupils equal round and reactive to light, extra-ocular motions intact. Lids and lashes normal. Conjunctiva and sclera are non-icteric and not injected. Cornea within normal limits. Periorbital areas with no swelling, redness, or edema. ENT: Nares patent. No nasal discharge, no septal abnormalities noted. Tympanic membranes are normal and external auditory canals are clear. Oropharynx with no redness, swelling, or masses, exudates, or evidence of obstruction, uvula midline. Mucous membranes moist. Neck: Trachea midline, no thyromegaly or masses palpated, and no cervical lymphadenopathy. Supple, full range of motion without nuchal rigidity, or vertebral point tenderness. No Meningismus. Chest/axilla: Normal chest wall appearance and motion. Nontender with no deformity. No lesions are appreciated. Cardiovascular: Regular rate and rhythm with a normal S1 and S2. No gallops, murmurs, or rubs. Normal PMI, no JVD. No pulse deficits. Respiratory: Lungs have equal breath sounds bilaterally, clear to auscultation and percussion. No rales, rhonchi or wheezes noted. No increased work of breathing, no retractions or nasal flaring. Abdomen/GI: Soft, non-tender, with normal bowel sounds. No distension or tympany. No guarding or rebound. No evidence of tenderness throughout. Back: No spinal tenderness. No costovertebral tenderness. Full range of motion. Skin: Warm, dry with normal turgor. Normal color with no rashes, no lesions, and no evidence of cellulitis. Neuro: Awake and alert, GCS 15, oriented to person, place, time, and situation. Cranial nerves II-XII grossly intact. Motor strength 5/5 in all extremities. Sensory grossly intact. Cerebellar exam normal. Normal gait. Psych: Awake, alert, with orientation to person, place and time. Behavior, mood, and affect are within normal limits. 10:25 Musculoskeletal/extremity: Extremities: grossly normal except: erythema, pain, swelling, tenderness, ROM: intact in all extremities, full active range of motion, full passive range of motion, Circulation is intact in all extremities. Severe pain noted. Compartment Syndrome exam of affected extremity: is normal. DVT Exam: pain, swelling, tenderness, erythema, increased warmth, of the right leg, of the lateral aspect of right thigh, 10:25 Skin: abscess, that is small, of the lateral aspect of right thigh, cellulitis, that is minimal, induration, that is moderate is noted, injury, is not appreciated, Turgor: is excellent, Vital Signs: 09:46 Pulse 72; Resp 15; Pulse Ox 100% on R/A; Weight 97.52 kg; Height 6 ft. 1 in. ; iw 10:05 BP 141 / 82; Temp 99(O); iw 13:08 BP 135 / 82; Pulse 80; Resp 18 S; Pulse Ox 100% on R/A; kc6 09:46 Body Mass Index 28.37 (97.52 kg, 185.42 cm) iw MDM: 09:06 Medical Screening Exam initiated jane 10:34 Differential diagnosis: abscess, cellulitis. Data reviewed: vital signs, nurses notes, [facility] lab test result(s), radiologic studies, plain films, ultrasound. Consideration of Admission/Observation Escalation of care including admission/observation considered. I considered the following discharge prescriptions or medication management in the emergency department Medications were administered in the Emergency Department. See MAR. Independent interpretation of the following test(s) in the Emergency Department Radiology Department Ultrasound: My interpretation is right leg usg. Test considered but Not performed: MRI: no mri. Historians other than the Patient: Parent: mom well informed. Care significantly affected by the following chronic conditions: Cancer, right thigh abscess. Counseling: I had a detailed discussion with the patient and/or guardian regarding the historical points, exam findings, and any diagnostic results supporting the discharge/admit diagnosis, lab results, radiology results, the need for outpatient follow up, for definitive care, a general surgeon. 03/24 09:47 Order name: CBC with Diff; Complete Time: 11:06 jane 03/24 09:47 Order name: Comprehensive Metabolic Panel; Complete Time: 12:52 jane 03/24 09:48 Order name: Wound Culture jane 03/24 11:01 Order name: Basic Metabolic Panel EDMS 03/24 11:01 Order name: Basic Metabolic Panel EDMS 03/24 11:01 Order name: CBC with Automated Diff EDMS 03/24 11:01 Order name: CBC with Automated Diff EDMS 03/24 09:47 Order name: Femur Right XRAY jane 03/24 09:47 Order name: US Extrmty Nonvasular Limited; Complete Time: 10:45 jane 03/24 12:15 Order name: RAD; Complete Time: 12:52 EDMS 03/24 09:48 Order name: Dressing - Wound; Complete Time: 10:21 jane 03/24 09:48 Order name: Gloves, Sterile; Complete Time: 10:21 jane 03/24 09:48 Order name: Setup Suture Tray; Complete Time: 10:21 jane Administered Medications: 10:45 Not Given (Duplicate Order): trimethoprim-sulfamethoxazole(160 mg-800 mg (ds) 2 tablet jane PO once 10:45 Not Given (Duplicate Order): [id number] mg PO once jane 10:49 Drug: NS 0.9% IV 1000 ml IV at 1000 ml once; to be given as a bolus over 60 minutes kc6 Route: IV; Rate: 1000 ml; Site: left upper arm; 13:09 Follow up: Response: No adverse reaction; IV Status: Completed infusion; IV Intake: kc6 1000ml 10:49 Drug: Clindamycin IVPB 900 mg IVPB once over 30 mins; (mix in 50 mL) Route: IVPB; kc6 Infused Over: 30 mins; Site: left upper arm; 13:09 Follow up: Response: No adverse reaction; IV Status: Completed infusion; IV Intake: [id number] 10:49 Drug: Ativan IVP 1 mg IVP once; Prior to procedure. Verbal order Per Dr. Combs kc6 Route: IVP; Site: left upper arm; 13:09 Follow up: Response: No adverse reaction; Anxiety decreased kc6 10:50 Drug: Clindamycin PO 300 mg PO once Route: PO; kc6 13:09 Follow up: Response: No adverse reaction kc6 10:50 Drug: Trimethoprim-Sulfamethoxazole PO (160 mg-800 mg (DS) 2 tablet PO once Route: PO; kc6 13:09 Follow up: Response: No adverse reaction kc6 12:16 Not Given (Physician Discretion): [id number]-osxkmahxeve-0%: (1:100,000) 10 ml 20 ml kc6 Infiltration once; to bedside Disposition Summary: 03/24/24 10:49 Hospitalization Ordered Notes: Hospitalization Status: Observation jane Provider: Garrett Saavedra cha Condition: Stable jane Problem: new jane Symptoms: have improved jane Bed/Room Type: Standard jane Location: [facility] ER HOLD(03/24/24 12:26) iw Room Assignment: ERHOLD-(03/24/24 12:26) iw Diagnosis - Cutaneous abscess of right lower limb - right lateral thigh abscess, jane recurrent(03/24/24 10:51) Forms: - Medication Reconciliation Form jane - SBAR form jane - Leadership Thank You Letter jane Signatures: Dispatcher [employer] EDBill Madrigal MD MD cha Williams, Irene RN GINNY Cathryn Schreiber RN RN ld1 Soraida Smith RN RN kc6 Corrections: (The following items were deleted from the chart) 10:51 10:49 Cutaneous abscess of right lower limb - right lateral thigh abscess jane [facility] 12: 10:49 Telemetry/MedSurg (observation) [facility] 12: 10:49 jane
[2024-03-24 10:53] LABS: Absolute Lymphocytes (CBC) 0.9 K/uL (0.7-4.9); Absolute Monocytes 0.4 K/uL (0.1-1.3); Basophils % 0.6 % (0-1.3); Eosinophils % 0.9 % (0-4.4); Hematocrit 51.6 % (39.6-49.0); Hemoglobin 16.9 g/dL (13.6-17.9); Lymphocytes % 16.5 % (15.3-44.8); MCHC 32.7 g/dL (32.0-36.0); MCV 88.7 fL (80-100); MPV 8.2 fL (7.6-11.3); Monocytes % 7.2 % (3.3-12.3); Neutrophils % 74.8 % (41.7-73.7); Nucleated Red Blood Cells % 0.3 % (0-0); Platelets 244 thou/uL (152-406); RBC Red Blood Cell Count 5.82 M/uL (4.33-5.43); Red Cell Distribution Width 14.4 % (12.1-15.2)
[2024-03-24] MEDS ORDERED: ONDANSETRON 4 MG/2 ML VIAL IV PRN (10:57)
[2024-03-24] MEDS ORDERED: MORPHINE 4 MG/ML SYR IV PRN (10:57)
[2024-03-24 11:12] LABS: Albumin 3.9 g/dL (3.4-5.0); Albumin/Globulin Ratio 1.1 (1.1-1.8); Bilirubin Total 0.9 mg/dL (0.2-1.0); Globulin 3.7 g/dL (2.3-3.5); Protein, Total 7.6 g/dL (6.4-8.2)
[2024-03-24] MEDS ORDERED: ACETAMINOPHEN 325 MG TABLET PO PRN (11:13)
[2024-03-24] MEDS ORDERED: CLINDAMYCIN 900MG/D5W 900 MG/50 ML IVPB IV SCH ×2 (12:00→18:00)
--- NOTE | 2024-03-24 12:15 | RAD REPORT ---
EXAMINATION: XR RIGHT FEMUR CLINICAL INDICATION: . PAIN RIGHT TECHNIQUE: Multiple views of the right femur were obtained. COMPARISON: 09/13/2022 FINDINGS: Mild arthritic changes right hip. Elsewhere, no bone or joint abnormality seen. No soft ti ssue gas.
[2024-03-24] MEDS ORDERED: KETOROLAC 30 MG/ML INJ ONE (13:26)
[2024-03-24] MEDS ORDERED: propofoL 200 MG/20 ML VIAL IV ONE (13:26)
[2024-03-24] MEDS ORDERED: FENTANYL CITR 100 MCG/2 ML ONE (13:26)
[2024-03-24] MEDS ORDERED: ONDANSETRON 4 MG/2 ML VIAL ONE (13:26)
[2024-03-24] MEDS ORDERED: LIDOCAINE 2% MPF 5 ML VIAL ONE (13:26)
[2024-03-24] MEDS ORDERED: dexAMETHasone 10 MG/ML VIAL ONE (13:26)
[2024-03-24] MEDS ORDERED: MIDAZOLAM HCL 2 MG/2 ML INJ ONE (13:26)
[2024-03-24] MEDS: LIDOCAINE HCL/EPINEPHRINE 20 ML MDV ONE (13:52)
[2024-03-24] MEDS: NA CHLORIDE 0.9% 1,000 ML IV SCH (14:00)
[2024-03-24] MEDS ORDERED: NS 0.9% VIAL 20 ML ONE (14:09)
[2024-03-24] MEDS ORDERED: CEFAZOLIN SODIUM 1 GM/VIAL ONE (14:09)
--- NOTE | 2024-03-24 14:45 | P.OP ---
Preoperative diagnosis: RIGHT Thigh infected hematoma Postoperative diagnosis: RIGHT Thigh infected hematoma Primary procedure: Incision Drainage and Debridement of RIGHT Thigh infected hematoma Anesthesia: GETA Estimated blood loss: <10cc Specimen: Cultures x 2, Debridement Tissue Findings: RIGHT Thigh infected hematoma ~ 2cm x 6cm x 2 cm Complications: None Transferred to: Recovery Room Condition: Good
[2024-03-24] MEDS: HYDROCODONE/APAP 10/325 TAB ONE (15:50)
[2024-03-24 16:38] VITALS: BP 139/58; O2SAT 98
[2024-03-24 16:42] VITALS: TEMP 988.8
--- NOTE | 2024-03-24 22:14 | OP ---
Date of Procedure: 03/24/2024 Surgeon: Garrett Saavedra MD, Preoperative Diagnosis: Right thigh infected hematoma. Postoperative Diagnosis: Right thigh infected hematoma. Procedure Performed: Incision and drainage and debridement of right thigh infected hematoma. Anesthesia: General endotracheal plus local with 0.25% Marcaine. Estimated Blood Loss: Less than 10 cc. Specimen: Culture sent for aerobic and anaerobic speciation x2 and debridement tissue. Findings: Right thigh infected hematoma approximately 2 cm x 6 cm length x 2 cm exit only involving subcutaneous fat, not involving muscular fascia. Complications: None. Condition: The patient was transferred to recovery room in good condition. Brief Hpi: The patient is a 28-year-old male known to me from previous interactions where he has a h istory of testicular cancer status post chemotherapy. He stopped receiving chemotherapy approximatel y a year ago and has been having normal white blood cell count by report. Since then, he has develop ed several episodes of wounds on the right thigh. On this latest occasion, he was exercising and fel t, during particular heavy lifting session, some tenderness and pain of the right lateral thigh area away from the similar area of his previous incision. Ultimately, this area became swollen, tender, r ed, and retracted posteriorly and as such came to the emergency room where an ultrasound showed a flu id collection area. Procedure In Detail: After informed consent was obtained, the patient was brought to the operating r oom, prepped and draped in the usual sterile fashion. After adequate anesthesia was achieved, I anes thetized an area of the right thigh near previous well-healed incision, which is a new site of rednes s and fluctuance down to subcutaneous tissues. I cut an elliptical area of skin here in this area an d got down to a murky fluid collection. This was cultured both aerobic and anaerobic speciation 2 ti mes as described above. Able to be palpated the area and found there to be a tunneling tract in a tu bular type connection down inferolaterally toward the posterior thigh in a slanted direction for appr oximately 6 cm in length and I made a counter incision over the other area of fluctuance and discover ed another hematoma this area without evidence of infection. I cleaned out all hematoma material. T here was apparent epithelialization to some of the tissues at the original site near where the rednes s was at the superior anterior aspect. This was cleaned out using a curette until all nonviable and infected tissue was removed. The area was copiously irrigated. I then past a gauze with Vashe sever al times through here to help debride the area. Additionally, no additional debridement was necessar y at this point. I irrigated the area copiously. Minimal hemostasis was required at this point. I then palpated the area once again, no additional infection or clear fluid collections were appreciate d. I then packed the wound with Vashe soaked Kerlix and a sterile dressing placed over top. The pat ient tolerated the procedure without incident or complication, transferred back in good condition. A ll counts were correct at the end of case. MARCIA/AGNELINE Voice ID: [id number] Report ID: [id number]
== END 2024-03-24 16:30 | disposition home or self-care (01) ==
LOC: ER 08:55 → ERHOLD 10:55 → UNDOADMOB 10:55 → DS 15:43
PROVIDERS: ATTEND Surgery
PROC: 0J9L3ZX Drainage of Right Upper Leg Subcutaneous Tissue and Fascia, Percutaneous Approach, Diagnostic (ICD-10-PCS; 2024-03-24)
PROC: 0YJ Anatomical Regions, Lower Extremities, Inspection (ICD-10-PCS; principal; 2024-03-24 12:15)
DX: S70.11XA Contusion of right thigh, initial encounter (principal)
CPT/HCPCS: 10140; 96365; 87070 ×2; 85025; 36415; 87205 ×2; 88304; 87075 ×2; 87077 ×2; 87186 ×2; 80053; 73552; 76882; 96375; 99285; 96366; A4216; J2704; J2003; J2250; J3010; J1100; J2405; J7030; J0690